=== PATIENT | female | born 1940 | race Caucasian/White ===

== ENCOUNTER 2017-02-06 12:32 | Emergency (ER) | payer MEDICARE, BC ==
[2017-02-06 12:44] VITALS: BP 163/75
[2017-02-06] MEDS ORDERED: Ondansetron 4 MG/2 ML SDV IVPUSH ONE (12:57)
[2017-02-06] MEDS ORDERED: Sodium Chloride 0.9% 1,000 ML IV ONE (12:57)
--- NOTE | 2017-02-06 13:21 | EDM.PDOC ---
ED HPI GENERAL MEDICAL PROBLEM - General Chief Complaint: General Stated Complaint: nausea/shortness of breath/abdominal discomfort Time Seen by Provider: 02/06/17 13:00 Source of Information: Reports: Patient History Limitations: Reports: No Limitations - History of Present Illness INITIAL COMMENTS - FREE TEXT/NARRATIVE: 76 YO WF presents to ER with complaints of nausea, dizziness and some mild shortness of breath. Pt also complaining of some vague abdominal discomfort. Pt denies any chest pain or diaphoresis. Pt states she feels like her blood pressure is elevated. Pt denies any fever/chills, denies any dysuria. Pt reports regular bowel movements without bleeding. No constipation/diarrhea. Onset: Today Duration: Hour(s): (1) Location: Reports: Abdomen Quality: Reports: Ache Severity: Mild Improves with: Reports: None Worsens with: Reports: None Associated Symptoms: Reports: Nausea/Vomiting, Shortness of Breath. Denies: Confusion, Chest Pain, Cough, cough w sputum, Fever/Chills, Headaches, Loss of Appetite, Malaise, Syncope, Weakness - Related Data Allergies Allergy/AdvReac Type Severity Reaction Status Date / Time No Known Drug Allergies Allergy NKDA Verified 02/06/17 12:43 Home Meds: Home Meds Cephalexin [Keflex] 500 mg PO Q6HR #28 cap 02/06/17 [Rx] Lisinopril [Prinivil] 20 mg PO DAILY 02/06/17 [History] Ondansetron [Zofran ODT] 4 mg PO Q8H #6 tab.dis 02/06/17 [Rx] Past Medical History Cardiovascular History: Reports: Hypertension Respiratory History: Reports: None Gastrointestinal History: Reports: GERD, Pancreatitis Genitourinary History: Reports: None 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 (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) 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 Musculoskeletal History: Reports: None Neurological History: Reports: None Psychiatric History: Reports: None Endocrine/Metabolic History: Reports: None Hematologic History: Reports: None Immunologic History: Reports: None Oncologic (Cancer) History: Reports: None Dermatologic History: Reports: None - Infectious Disease History Infectious Disease History: Reports: Mumps - Past Surgical History Head Surgeries/Procedures: Reports: None HEENT Surgical History: Reports: Cataract Surgery Cardiovascular Surgical History: Reports: None GI Surgical History: Reports: Appendectomy, Cholecystectomy, Colonoscopy, EGD, ERCP Female Surgical History: Reports: Hysterectomy, Salpingo-Oophorectomy Endocrine Surgical History: Reports: None Neurological Surgical History: Reports: None Social & Family History - Family History Family Medical History: Noncontributory - Tobacco Use Smoking Status *Q: Never Smoker Years of Tobacco use: 10 Packs/Tins Daily: 0.5 Used Tobacco, but Quit: No Second Hand Smoke Exposure: No - Caffeine Use Caffeine Use: Reports: Coffee - Alcohol Use Days Per Week of Alcohol Use: 7 Number of Drinks Per Day: 1 Total Drinks Per Week: 7 - Recreational Drug Use Recreational Drug Use: No ED ROS GENERAL - Review of Systems Review Of Systems: See Below Constitutional: Reports: No Symptoms HEENT: Reports: No Symptoms Respiratory: Reports: No Symptoms Cardiovascular: Reports: No Symptoms Endocrine: Reports: No Symptoms GI/Abdominal: Reports: Abdominal Pain, Nausea : Reports: No Symptoms Musculoskeletal: Reports: No Symptoms Skin: Reports: No Symptoms Neurological: Reports: No Symptoms Psychiatric: Reports: Anxiety Hematologic/Lymphatic: Reports: No Symptoms Immunologic: Reports: No Symptoms ED EXAM, GENERAL - Physical Exam Exam: See Below Exam Limited By: No Limitations General Appearance: Alert, WD/WN, No Apparent Distress Head: Atraumatic, Normocephalic Neck: Normal Inspection, Supple, Non-Tender, Full Range of Motion Respiratory/Chest: No Respiratory Distress, Lungs Clear, Normal Breath Sounds, No Accessory Muscle Use, Chest Non-Tender Cardiovascular: Normal Peripheral Pulses, Regular Rate, Rhythm, No Edema, No Gallop, No JVD, No Murmur, No Rub GI/Abdominal: Normal Bowel Sounds, Soft, Non-Tender, No Organomegaly, No Distention, No Abnormal Bruit, No Mass Back Exam: Normal Inspection, Full Range of Motion, NT Extremities: Normal Inspection, Normal Range of Motion, Non-Tender, Normal Capillary Refill, No Pedal Edema Neurological: Alert, Oriented, CN II-XII Intact, Normal Cognition, Normal Gait, Normal Reflexes, No Motor/Sensory Deficits Psychiatric: Normal Affect, Normal Mood Skin Exam: Warm, Dry, Intact, Normal Color, No Rash Lymphatic: No Adenopathy EKG INTERPRETATION EKG Date: 02/06/17 Time: 13:30 Rhythm: NSR Rate (Beats/Min): 85 [place]: Normal P-Wave: Present QRS: Normal ST-T: Normal QT: Normal Comparison: NA - No Prior EKG Course - Vital Signs Last Recorded V/S: Last Vital Signs Temp 35.2 C L 02/06/17 12:40 Pulse Resp 16 02/06/17 12:40 BP 163/75 H 02/06/17 12:40 Pulse Ox 98 02/06/17 12:40 - Orders/Labs/Meds Orders: Active Orders 24 hr Category Date Time Status EKG Documentation Completion [RC] ASDIRECTED Care 02/06/17 13:20 Active Chest 1V Frontal [CR] Stat Exams 02/06/17 13:20 Ordered CULTURE URINE [RM] Stat Lab 02/06/17 14:16 Uncollected Cephalexin [Keflex] Med 02/06/17 14:30 Active 250 mg PO Q6HR Ondansetron [Zofran ODT] Med 02/06/17 14:16 Active 4 mg PO Q8H PRN Medication Orders Cephalexin (Keflex) 250 mg PO Q6HR GRACY Stop: 02/12/17 05:01 Ondansetron HCl (Zofran Odt) 4 mg PO Q8H PRN PRN Reason: Nausea/Vomiting Labs: Laboratory Tests 02/06/17 02/06/17 02/06/17 Range/Units 13:10 13:10 13:10 WBC 11.4 H (5.0-10.0) 10^3/uL RBC 4.83 (3.80-5.50) 10^6/uL Hgb 14.5 (12.0-16.0) g/dL Hct 43.5 (37.0-47.0) % MCV 90.1 (82.0-92.0) fL MCH 30.1 (27.0-31.0) pg MCHC 33.4 (32.0-36.0) g/dL RDW 13.0 (11.5-14.5) % Plt Count 244 (150-300) 10^3/uL MPV 8.1 (7.4-10.4) fL Neut % (Auto) 75.9 H (50.0-70.0) % Lymph % (Auto) 20.1 (20.0-40.0) % [place] % (Auto) 3.4 (2.0-8.0) % Eos % (Auto) 0.4 L (1.0-3.0) % Baso % (Auto) 0.2 (0.0-1.0) % Neut # (Auto) 8.7 H (2.5-7.0) 10^3/uL Lymph # (Auto) 2.3 (1.0-4.0) 10^3/uL [place] # (Auto) 0.4 (0.1-0.8) 10^3/uL Eos # (Auto) 0.0 L (0.1-0.3) 10^3/uL Baso # (Auto) 0.0 (0.0-0.1) 10^3/uL Sodium 135 L (136-145) mmol/L Potassium 4.7 (3.3-5.3) mmol/L Chloride 102 (98-115) mmol/L Carbon Dioxide 22.6 (21.0-32.0) mmol/L BUN 19 (6-25) mg/dL Creatinine 0.81 (0.51-1.17) mg/dL Est Cr Clr Drug Dosing 49.43 mL/min Estimated GFR (MDRD) > 60 mL/min Glucose 91 (70-110) mg/dL Calcium 9.4 (8.7-10.3) mg/dL Total Bilirubin 0.3 (0.2-1.0) mg/dL AST 26 (15-37) U/L ALT 21 (12-78) U/L Alkaline Phosphatase 75 (46-116) IU/L Creatine Kinase 105 (26-276) U/L CK-MB (CK-2) 1.10 (0.00-4.30) ng/mL Troponin I 0.05 (0.00-0.070) ng/mL Total Protein 7.4 (6.4-8.2) g/dL Albumin 4.05 (3.00-4.80) g/dL Lipase 157 (73-393) U/L Specimen Type Urine Color (YELLOW) Urine Appearance (CLEAR) Urine pH (5.0-9.0) Ur Specific [place] (1.005-1.030) Urine Protein (NEGATIVE) mg/dL Urine Glucose (UA) (NEGATIVE) mg/dL Urine Ketones (NEGATIVE) mg/dL Urine Occult Blood (NEGATIVE) Urine Nitrite (NEGATIVE) Urine Bilirubin (NEGATIVE) Urine Urobilinogen (0.2-1.0) E.U./dL Ur Leukocyte Esterase (NEGATIVE) Urine RBC /HPF Urine WBC /HPF Ur Epithelial Cells /LPF Urine Bacteria (NONE TO FEW) /HPF Urine Mucus (NEGATIVE) /LPF 02/06/17 Range/Units 13:35 WBC (5.0-10.0) 10^3/uL RBC (3.80-5.50) 10^6/uL Hgb (12.0-16.0) g/dL Hct (37.0-47.0) % MCV (82.0-92.0) fL MCH (27.0-31.0) pg MCHC (32.0-36.0) g/dL RDW (11.5-14.5) % Plt Count (150-300) 10^3/uL MPV (7.4-10.4) fL Neut % (Auto) (50.0-70.0) % Lymph % (Auto) (20.0-40.0) % [place] % (Auto) (2.0-8.0) % Eos % (Auto) (1.0-3.0) % Baso % (Auto) (0.0-1.0) % Neut # (Auto) (2.5-7.0) 10^3/uL Lymph # (Auto) (1.0-4.0) 10^3/uL [place] # (Auto) (0.1-0.8) 10^3/uL Eos # (Auto) (0.1-0.3) 10^3/uL Baso # (Auto) (0.0-0.1) 10^3/uL Sodium (136-145) mmol/L Potassium (3.3-5.3) mmol/L Chloride (98-115) mmol/L Carbon Dioxide (21.0-32.0) mmol/L BUN (6-25) mg/dL Creatinine (0.51-1.17) mg/dL Est Cr Clr Drug Dosing mL/min Estimated GFR (MDRD) mL/min Glucose (70-110) mg/dL Calcium (8.7-10.3) mg/dL Total Bilirubin (0.2-1.0) mg/dL AST (15-37) U/L ALT (12-78) U/L Alkaline Phosphatase (46-116) IU/L Creatine Kinase (26-276) U/L CK-MB (CK-2) (0.00-4.30) ng/mL Troponin I (0.00-0.070) ng/mL Total Protein (6.4-8.2) g/dL Albumin (3.00-4.80) g/dL Lipase (73-393) U/L Specimen Type Urincc Urine Color Yellow (YELLOW) Urine Appearance Clear (CLEAR) Urine pH 7.0 (5.0-9.0) Ur Specific [place] 1.010 (1.005-1.030) Urine Protein Negative (NEGATIVE) mg/dL Urine Glucose (UA) Negative (NEGATIVE) mg/dL Urine Ketones Trace H (NEGATIVE) mg/dL Urine Occult Blood Trace-intact H (NEGATIVE) Urine Nitrite Negative (NEGATIVE) Urine Bilirubin Negative (NEGATIVE) Urine Urobilinogen 0.2 (0.2-1.0) E.U./dL Ur Leukocyte Esterase Trace H (NEGATIVE) Urine RBC 0-5 /HPF Urine WBC 20-30 H /HPF Ur Epithelial Cells Moderate H /LPF Urine Bacteria Occasional (NONE TO FEW) /HPF Urine Mucus Moderate H (NEGATIVE) /LPF Meds: Medications Generic Name Dose Route Start Last Admin Trade Name Freq PRN Reason Stop Dose Admin Cephalexin 250 mg 02/06/17 14:30 Keflex PO 02/12/17 05:01 Q6HR GRACY Ondansetron HCl 4 mg 02/06/17 14:16 Zofran Odt PO Q8H PRN Nausea/Vomiting Discontinued Medications Generic Name Dose Route Start Last Admin Trade Name Freq PRN Reason Stop Dose Admin Sodium Chloride 1,000 mls @ 999 mls/hr 02/06/17 12:57 02/06/17 13:14 Normal Saline IV 02/06/17 13:57 999 mls/hr .BOLUS ONE Administration Ketorolac Tromethamine 30 mg 02/06/17 13:57 02/06/17 14:03 Toradol IVPUSH 02/06/17 13:58 30 mg ONETIME ONE Administration Ondansetron HCl 4 mg 02/06/17 12:57 02/06/17 13:14 Zofran IVPUSH 02/06/17 12:58 4 mg ONETIME ONE Administration - Radiology Interpretation Free Text/Narrative:: CXR- NAD Departure - Departure Time of Disposition: 14:12 Disposition: Home, Self-Care 01 Condition: Good Clinical Impression: Nausea Urinary tract infection Qualifiers: Urinary tract infection type: acute cystitis Hematuria presence: without hematuria Qualified Code(s): N30.00 - Acute cystitis without hematuria - Discharge Information Prescriptions: Cephalexin [Keflex] 500 mg PO Q6HR #28 cap Ondansetron [Zofran ODT] 4 mg PO Q8H #6 tab.dis Instructions: Nausea, Adult, Urinary Tract Infection, Adult Referrals: Tierra Casanova PA-C [Primary Care Provider] - Forms: ED Department Discharge - My Orders Last 24 Hours: My Active Orders 02/06/17 13:20 EKG Documentation Completion [RC] ASDIRECTED Chest 1V Frontal [CR] Stat 02/06/17 14:16 CULTURE URINE [RM] Stat Ondansetron [Zofran ODT] 4 mg PO Q8H PRN 02/06/17 14:30 Cephalexin [Keflex] 250 mg PO Q6HR - Assessment/Plan Last 24 Hours: My Active Orders 02/06/17 13:20 EKG Documentation Completion [RC] ASDIRECTED Chest 1V Frontal [CR] Stat 02/06/17 14:16 CULTURE URINE [RM] Stat Ondansetron [Zofran ODT] 4 mg PO Q8H PRN 02/06/17 14:30 Cephalexin [Keflex] 250 mg PO Q6HR Assessment:: 1. nausea 2. urinary tract infection Plan: 1. keflex 500mg PO Q6 2. Zofran 4mg SL Q8 PRN nausea 3. follow up in clinic for urinary culture check in 3 days 4. return to ER for worsening symptoms
[2017-02-06 13:45] LABS: CHLORIDE,CL 102 mmol/L (98-115); SODIUM,NA 135 mmol/L (136-145)
[2017-02-06] MEDS ORDERED: Ketorolac 30 MG/ML SDV IVPUSH ONE (13:57)
[2017-02-06] MEDS ORDERED: Ondansetron 4 MG Tab.DIS PO PRN (14:16)
[2017-02-06] MEDS ORDERED: Cephalexin 250 MG Cap PO SCH (14:30)
== END 2017-02-06 14:35 | disposition home or self-care (01) ==
LOC: KA.ED 12:32
DX: N30.00 Acute cystitis without hematuria (principal); R11.0 Nausea; I10 Essential (primary) hypertension; K21.9 Gastro-esophageal reflux disease without esophagitis; Z90.49 Acquired absence of other specified parts of digestive tract; Z79.899 Other long term (current) drug therapy; Z90.710 Acquired absence of both cervix and uterus
CPT/HCPCS: 36415; 71010; 80053; 81001; 82550; 82553; 83690; 84484; 85025; 87086; 93005; 96361; 96374; 96375; 99283; J1885; J2405; J7030; A9270-GY

== ENCOUNTER 2017-02-10 13:25 | Observation (INO) | payer MEDICARE, BC ==
[2017-02-10] MEDS ORDERED: HYDROmorphone 1 MG/ML Syringe IVPUSH PRN (13:55)
[2017-02-10] MEDS ORDERED: Ondansetron 4 MG Tab.DIS PO PRN (13:55)
[2017-02-10] MEDS ORDERED: Sodium Chloride 0.9% 5 ML Syringe FLUSH PRN (13:55)
[2017-02-10] MEDS ORDERED: Ciprofloxacin 500 MG Tab PO SCH (14:15)
[2017-02-10] MEDS ORDERED: Ondansetron 4 MG Tab.DIS PO SCH (14:15)
[2017-02-10] MEDS: Dextrose 5%-0.45% NaCl 1,000 ML IV SCH ×2 (14:20→22:24)
[2017-02-10 14:35] LABS: CHLORIDE,CL 104 mmol/L (98-115); SODIUM,NA 139 mmol/L (136-145)
[2017-02-10] MEDS: Ciprofloxacin 500 MG Tab PO SCH (19:57)
[2017-02-11] MEDS: Dextrose 5%-0.45% NaCl 1,000 ML IV SCH (06:27)
[2017-02-11] MEDS ORDERED: Iopamidol 612 MG/ML 75 ML Bottle IV PRN (08:22)
[2017-02-11] MEDS ORDERED: Lisinopril 20 MG Tab PO SCH (09:00)
[2017-02-11] MEDS ORDERED: Sodium Chloride 0.9% 50 ML SDV FLUSH ONE (09:30)
[2017-02-11] MEDS: Ciprofloxacin 500 MG Tab PO SCH (09:42)
[2017-02-11 11:14] VITALS: BP 163/72
--- NOTE | 2017-02-12 10:09 | DISCH ---
This is a 76-year-old female who was admitted yesterday from the [facility]. She was complaining of severe right upper quadrant pain. She was previously seen in the emergency room on 02/06/2017. At that time, she was complaining of nausea, dizziness, and some shortness of breath. She was also complaining of some vague abdominal discomfort as well. A thorough laboratory workup including cardiac enzymes were performed. Lipase was negative. White count was just mildly elevated at 11.4 with a slight left shift. The only positive finding in the emergency room was a urinary tract infection, which was initially treated with Keflex. She had oral intolerance to the Keflex and was changed to Cipro at the time of her followup appointment on 02/09/2017. The patient called me yesterday and stated that she was having severe right upper quadrant pain following eating a sandwich. She does have a history of choledocholithiasis following cholecystectomy approximately three years ago. She has had three procedures for common bile duct stenting. The first two were performed in [place] and the stents "fell out." She went to the [facility] and had a 3rd stent placed which was kept in place for six months. This was subsequently removed. She has not had any symptoms for the past two years. She does have a history of biliary dyskinesia and previous pancreatitis. She only occasionally has the right upper quadrant pain, which she describes as mild. Today, she states the pain is 10/10. She is also complaining of being dizzy and lightheaded. She has an overall feeling of numbness and severe weakness and also feeling as though she is going to pass out. She was admitted to the hospital and treated with intravenous fluids and clear liquid diet. Lab results from yesterday showed a resolved white blood cell count of 6.8. Her hemoglobin was normal at 13.3. Comprehensive metabolic panel was normal with the exception of an elevated glucose of 127, which is a non-fasting sample and a slightly low calcium of 8.4 with a normal range being 8.7 to 10.3, clinically insignificant. She did have a CAT scan of the abdomen performed today. Overall, it was fairly normal. She has a prior cholecystectomy. There is persistent air in the biliary tree. The spleen, pancreas, and adrenals were normal. She does have bilateral non-obstructive renal calculi and a left upper pole renal cyst measuring 8 mm. The bladder, aorta, and IVC were normal. Pelvic organs are absent. A comment was made in regard to the GI tract. There is thickening of the distal stomach patino. No evidence of discrete mass. The appendix was not identified. Mesentery and omentum vasculature lymphatics were normal. No ascites were seen. Final impression was thickening of the distal stomach patino, which may be related to lack of distention, inflammation, or infection. Two bilateral non-obstructive renal calculi. Results of the CAT scan were communicated to the patient. She tolerated a full regular diet without any recurrence of her abdominal pain. She will be discharged with instructions to continue Cipro for a urinary tract infection. She will also continue lisinopril, which she takes for hypertension. I did give her 20 tablets of oxycodone to have on hand for severe abdominal pain. Hopefully, the biliary dyskinesia is not a recurrent problem for this patient. She will follow up in the clinic next week with me. A urinalysis will be repeated at that time. She was instructed to call or return to the clinic or hospital if any issues arise. FINAL DIAGNOSES: 1. Abdominal pain with no pathology identified. 2. Urinary tract infection, treated and improved symptomatically. 3. Hypertension, stable with lisinopril. 4. Biliary dyskinesia and past history of bile duct stenting. 5. Social component of recent of her which was exactly four months yesterday. /[id number]/MODL
== END 2017-02-11 13:02 | disposition home or self-care (01) ==
LOC: KA.MS 13:25
DX: R10.11 Right upper quadrant pain (principal); N39.0 Urinary tract infection, site not specified; I10 Essential (primary) hypertension; K82.8 Other specified diseases of gallbladder; Z90.49 Acquired absence of other specified parts of digestive tract; Z79.899 Other long term (current) drug therapy
CPT/HCPCS: 36415; 74177; 80053; 82150; 83690; 85025; A9270; J1170; J7042; Q9967; 96361; 96374; G0378; G0379

== ENCOUNTER 2017-03-08 08:00 | Day surgery (SDC) | payer MEDICARE, BC ==
[~2017-03-08 08:00] MED LIST: Lactated Ringers 1,000 ML IV SCH; Sodium Chloride 0.9% 5 ML Syringe FLUSH PRN
[2017-03-08] MEDS ORDERED: Midazolam 1 MG/ML 2 ML SDV ONE (08:58)
[2017-03-08] MEDS ORDERED: fentaNYL 100 MCG/2 ML SDV ONE (08:58)
[2017-03-08] MEDS ORDERED: Propofol 200 MG/20 ML SDV ONE (08:58)
[2017-03-08] MEDS ORDERED: EPINEPHrine 1:10,000 1 MG/10 ML Syringe ONE ×2 (09:27→09:50)
[2017-03-08] MEDS ORDERED: Midazolam 1 MG/ML 2 ML SDV IV ONE (09:39)
[2017-03-08] MEDS ORDERED: fentaNYL 100 MCG/2 ML SDV IV ONE (09:39)
[2017-03-08] MEDS ORDERED: Propofol 200 MG/20 ML SDV IV ONE (09:39)
--- NOTE | 2017-03-08 10:11 | PCM.OPNOTE ---
- General Post-Op/Procedure Note Date of Surgery/Procedure: 03/08/17 Operative Procedure(s): Upper GI endoscopy and biopsies Pre Op Diagnosis: Persistent upper abdominal pain and discomfort. Recent Helicobacter pylori infection. Patient is losing weight. Has a history of biliary dyskinesia. Post-Op Diagnosis: Mild antral gastritis and mild reflux esophagitis. Biopsies are pending. Anesthesia Technique: [facility] [place] Primary Surgeon: Ruben Rodrigues Complications: None Condition: Good Free Text/Narrative:: INFORMED CONSENT: Patient is here today for elective upper GI endoscopy. All aspects of this procedure have been discussed with the patient. All possible complications also, including possibility of perforation, infection, pain, bleeding, numbness of the throat, swallowing difficulty and unknown complications. In the event of perforation the patient may need surgical exploration to repair the defect. The patient understands fully well. Patient did not have any further questions for me at the end of my interview. The patient wishes for me to proceed. INSTRUMENT USED: Video gastroscope ANESTHESIA: [[facility] [place]] ASA CLASSIFICATION: [2] PROCEDURE PERFORMED: [Upper gastrointestinal endoscopy with biopsies] PHARYNX: Normal. ESOPHAGUS: Normal. Proximal: Normal. Middle: Normal. Lower: Normal. GE Junction: Mild to moderate GE reflux was noted. Biopsies were taken from this area to rule out Benitez's esophagitis. STOMACH: Normal. Cardia: Normal. Fundus: Normal. Lesser Curvature: Normal. Greater Curvature: Normal. Antrum: Mild to moderate gastritis is observed. Biopsies were taken in this area. Also to rule out Helicobacter pylori infection.. Pylorus: Normal. DUODENUM: Normal. First Part: Normal. Second Part: Normal. Third Part: Normal. RETROFLEXION: Normal. BIOPSY: None. TOLERANCE: Excellent. COMPLICATIONS: None. Final diagnosis: Mild GERD, mild to moderate antral gastritis. Rule out Helicobacter pylori infection.
[2017-03-08 12:27] VITALS: BP 110/63
== END 2017-03-08 11:15 | disposition home or self-care (01) ==
LOC: KA.SDS 08:00
PROVIDERS: ATTEND Family Medicine
DX: K29.50 Unspecified chronic gastritis without bleeding (principal); K21.0 Gastro-esophageal reflux disease with esophagitis; Z79.2 Long term (current) use of antibiotics; Z79.899 Other long term (current) drug therapy
CPT/HCPCS: 43239; 88305; J0171; J2250; J3010; J7120; J2704

== ENCOUNTER 2017-04-03 16:18 | Emergency (ER) | payer MEDICARE, BC ==
[2017-04-03 16:37] VITALS: BP 128/78
--- NOTE | 2017-04-03 17:15 | EDM.PDOC ---
ED HPI GENERAL MEDICAL PROBLEM - General Chief Complaint: General Stated Complaint: ACHY...JUST PLAIN SICK Time Seen by Provider: 04/03/17 17:05 Source of Information: Reports: Patient History Limitations: Reports: No Limitations - History of Present Illness INITIAL COMMENTS - FREE TEXT/NARRATIVE: Patient presents with body aches, cough and feeling feverish starting yesterday. She hasn't checked her temp at home. She just returned from vacation in [place]. She denies chest pain, vomiting and diarrhea. She has been urinating more than usual. 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 (See Below) 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 Musculoskeletal History: Reports: None Neurological History: Reports: None Psychiatric History: Reports: None Endocrine/Metabolic History: Reports: None Hematologic History: Reports: None Immunologic History: Reports: None Oncologic (Cancer) History: Reports: None Dermatologic History: Reports: None - Infectious Disease History Infectious Disease History: Reports: Chicken Pox, Measles, Mumps, Rubella - Past Surgical History Head Surgeries/Procedures: Reports: None HEENT Surgical History: Reports: Cataract Surgery Cardiovascular Surgical History: Reports: None GI Surgical History: Reports: Appendectomy, Cholecystectomy, Colonoscopy, EGD, ERCP Female Surgical History: Reports: Hysterectomy, Salpingo-Oophorectomy Endocrine Surgical History: Reports: Parathyroidectomy Neurological Surgical History: Reports: None Social & Family History - Family History Family Medical History: Noncontributory - Tobacco Use Smoking Status *Q: Former Smoker Years of Tobacco use: 10 Packs/Tins Daily: 0.5 Used Tobacco, but Quit: Yes Month Tobacco Last Used: 1994 Second Hand Smoke Exposure: No - Caffeine Use Caffeine Use: Reports: Coffee, Tea - Alcohol Use Days Per Week of Alcohol Use: 7 Number of Drinks Per Day: 1 Total Drinks Per Week: 7 - Recreational Drug Use Recreational Drug Use: No ED ROS GENERAL - Review of Systems Review Of Systems: See Below Constitutional: Reports: Fever. Denies: Diaphoresis HEENT: Denies: Throat Pain, Vision Change Respiratory: Reports: Cough. Denies: Shortness of Breath, Sputum Cardiovascular: Denies: Chest Pain, Lightheadedness, Syncope GI/Abdominal: Reports: Abdominal Pain. Denies: Black Stool, Bloody Stool, Diarrhea, Distension, Nausea, Vomiting : Reports: Frequency. Denies: Discharge, Dysuria, Flank Pain Musculoskeletal: Reports: No Symptoms Skin: Denies: Cyanosis, Jaundice, Mottled, Pallor, Diaphoresis Neurological: Denies: Confusion, Dizziness, Headache, Seizure, Syncope, Trouble Speaking, Difficulty Walking Psychiatric: Denies: Agitation, Anxiety, Confusion ED EXAM, GENERAL - Physical Exam Exam: See Below Exam Limited By: No Limitations General Appearance: Alert, WD/WN, No Apparent Distress Eye Exam: Bilateral Eye: EOMI, Normal Inspection, PERRL Ears: Normal External Exam, Hearing Grossly Normal Nose: Normal Inspection, No Blood Throat/Mouth: Normal Inspection, Normal Lips, Normal Voice, No Airway Compromise Head: Atraumatic, Normocephalic Neck: Normal Inspection, Full Range of Motion Respiratory/Chest: No Respiratory Distress, Lungs Clear, Normal Breath Sounds, No Accessory Muscle Use Cardiovascular: Regular Rate, Rhythm, No Murmur GI/Abdominal: Normal Bowel Sounds, Soft, Non-Tender, No Organomegaly, No Distention, No Abnormal Bruit Back Exam: Normal Inspection, Full Range of Motion. No: CVA Tenderness (L), CVA Tenderness (R) Neurological: Alert, Oriented, Normal Cognition, No Motor/Sensory Deficits Psychiatric: Normal Affect, Normal Mood, Anxious Skin Exam: Warm, Dry, Intact, Normal Color, No Rash Course - Vital Signs Last Recorded V/S: Last Vital Signs Temp 100.8 F H 04/03/17 16:32 Pulse 98 04/03/17 16:32 Resp 18 04/03/17 16:32 BP 128/78 04/03/17 16:32 Pulse Ox 98 04/03/17 16:32 - Orders/Labs/Meds Orders: Active Orders 24 hr Category Date Time Status Chest 2V [CR] Stat Exams 04/03/17 16:43 Ordered Labs: Laboratory Tests 04/03/17 04/03/17 04/03/17 Range/Units 16:43 16:55 16:55 WBC 5.8 (5.0-10.0) 10^3/uL RBC 4.89 (3.80-5.50) 10^6/uL Hgb 14.4 (12.0-16.0) g/dL Hct 44.3 (37.0-47.0) % MCV 90.7 (82.0-92.0) fL MCH 29.5 (27.0-31.0) pg MCHC 32.5 (32.0-36.0) g/dL RDW 13.1 (11.5-14.5) % Plt Count 228 (150-300) 10^3/uL MPV 7.8 (7.4-10.4) fL Neut % (Auto) 75.7 H (50.0-70.0) % Lymph % (Auto) 16.6 L (20.0-40.0) % [place] % (Auto) 7.0 (2.0-8.0) % Eos % (Auto) 0.2 L (1.0-3.0) % Baso % (Auto) 0.5 (0.0-1.0) % Neut # (Auto) 4.4 (2.5-7.0) 10^3/uL Lymph # (Auto) 1.0 (1.0-4.0) 10^3/uL [place] # (Auto) 0.4 (0.1-0.8) 10^3/uL Eos # (Auto) 0.0 L (0.1-0.3) 10^3/uL Baso # (Auto) 0.0 (0.0-0.1) 10^3/uL Sodium 139 (136-145) mmol/L Potassium 4.1 (3.3-5.3) mmol/L Chloride 102 (98-115) mmol/L Carbon Dioxide 25.8 (21.0-32.0) mmol/L BUN 12 (6-25) mg/dL Creatinine 0.95 (0.51-1.17) mg/dL Est Cr Clr Drug Dosing 42.14 mL/min Estimated GFR (MDRD) 57 mL/min Glucose 98 (70-110) mg/dL Calcium 8.9 (8.7-10.3) mg/dL Specimen Type Urincc Urine Color Yellow (YELLOW) Urine Appearance Clear (CLEAR) Urine pH 7.0 (5.0-9.0) Ur Specific [place] 1.015 (1.005-1.030) Urine Protein Negative (NEGATIVE) mg/dL Urine Glucose (UA) Negative (NEGATIVE) mg/dL Urine Ketones 40 H (NEGATIVE) mg/dL Urine Occult Blood Trace-intact H (NEGATIVE) Urine Nitrite Negative (NEGATIVE) Urine Bilirubin Negative (NEGATIVE) Urine Urobilinogen 0.2 (0.2-1.0) E.U./dL Ur Leukocyte Esterase Negative (NEGATIVE) Urine RBC 5-10 H /HPF Urine WBC 5-10 H /HPF Ur Epithelial Cells Few /LPF Urine Bacteria Rare (NONE TO FEW) /HPF Urine Mucus Moderate H (NEGATIVE) /LPF - Re-Assessments/Exams Free Text/Narrative Re-Assessment/Exam: 04/03/17 17:47 Influenza A positive. Other labs mostly normal. Discussed findings and treatment plan with patient and her son. Rachel will meet her at pharmacy in a few minutes to fill her prescription for Tamiflu 75 mg bid x 5 days. Patient discharged in stable condition. I gave her and her son a couple of face masks and instructed pt not to go to work until symptoms are gone for 24 hours. Departure - Departure Time of Disposition: 17:49 Disposition: Home, Self-Care 01 Condition: Good Clinical Impression: Influenza A - Discharge Information Referrals: Tierra Casanova PA-C [Primary Care Provider] - Forms: ED Department Discharge Additional Instructions: 1. Drink 8 cups of water daily. 2. Take the Tamiflu as directed until the medication is all gone. 3. Use tylenol or ibuprofen as needed for fever. 4. Follow up with your PCP in a 5-6 days if not improving or sooner if worsening. - My Orders Last 24 Hours: My Active Orders 04/03/17 16:43 Chest 2V [CR] Stat - Assessment/Plan Last 24 Hours: My Active Orders 04/03/17 16:43 Chest 2V [CR] Stat
== END 2017-04-03 17:55 | disposition home or self-care (01) ==
LOC: KA.ED 16:18
DX: J10.1 Influenza due to other identified influenza virus with other respiratory manifestations (principal); I10 Essential (primary) hypertension; Z79.899 Other long term (current) drug therapy; Z87.891 Personal history of nicotine dependence
CPT/HCPCS: 36415; 71046; 80048; 81001; 85025; 87804; 99283

== ENCOUNTER 2017-07-30 10:20 | Emergency (ER) | payer MEDICARE, BC ==
[2017-07-30] MEDS ORDERED: Sodium Chloride 0.9% 1,000 ML IV ONE (10:48)
--- NOTE | 2017-07-30 11:00 | EDM.PDOC ---
ED HPI GENERAL MEDICAL PROBLEM - General Chief Complaint: Syncope Stated Complaint: Dizzy Time Seen by Provider: 07/30/17 10:35 Source of Information: Reports: Patient History Limitations: Reports: No Limitations - History of Present Illness INITIAL COMMENTS - FREE TEXT/NARRATIVE: 77 YO WF presents to ER complaining of dizziness and near syncope after episode of lower abdominal pain today. Pt reports she has chronic abdominal pain and is currently being treated for UTI which she doesn't believe the antibiotic is helping. Pt denies headache, chest pain, shortness of breath. 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 Pt reports she started macrobid 07/26/2017 then switched to cipro 07/28/2017 and still continues to have dysuria and frequency. Pt denies fever/chills, vomiting or back pain. Pt reports she feels dizzy when sitting up. Onset: Today Onset Date: 07/30/17 Onset Time: 09:00 Location: Reports: Abdomen, Generalized Quality: Reports: Ache Severity: Mild Improves with: Reports: None Worsens with: Reports: None Associated Symptoms: Reports: Nausea/Vomiting, Weakness. Denies: Confusion, Chest Pain, Cough, cough w sputum, Diaphoresis, Fever/Chills, Headaches, Loss of Appetite, Malaise, Rash, Seizure, Shortness of Breath, Syncope Abdominal Pain Score (Numeric/FACES): 6 - Related Data Allergies Allergy/AdvReac Type Severity Reaction Status Date / Time No Known Drug Allergies Allergy NKDA Verified 04/03/17 16:38 Home Meds: Home Meds Lisinopril [Prinivil] 20 mg PO DAILY 02/06/17 [History] Cephalexin [Keflex] 500 mg PO Q6HR #40 capsule 07/30/17 [Rx] Phenazopyridine HCl [Pyridium] 200 mg PO TID #6 tablet 07/30/17 [Rx] Past Medical History HEENT History: Reports: Cataract Cardiovascular History: Reports: Hypertension Respiratory History: Reports: None Gastrointestinal History: Reports: GERD, Pancreatitis Genitourinary History: Reports: None 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: , 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 (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) 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 Musculoskeletal History: Reports: None Neurological History: Reports: None Psychiatric History: Reports: None Endocrine/Metabolic History: Reports: None Hematologic History: Reports: None Immunologic History: Reports: None Oncologic (Cancer) History: Reports: None Dermatologic History: Reports: None - Infectious Disease History Infectious Disease History: Reports: Chicken Pox, Measles, Mumps, Rubella - Past Surgical History Head Surgeries/Procedures: Reports: None HEENT Surgical History: Reports: Cataract Surgery Cardiovascular Surgical History: Reports: None GI Surgical History: Reports: Appendectomy, Cholecystectomy, Colonoscopy, EGD, ERCP Female Surgical History: Reports: Hysterectomy, Salpingo-Oophorectomy Endocrine Surgical History: Reports: Parathyroidectomy Neurological Surgical History: Reports: None Social & Family History - Family History Family Medical History: Noncontributory - Caffeine Use Caffeine Use: Reports: Coffee, Tea ED ROS GENERAL - Review of Systems Review Of Systems: See Below Constitutional: Reports: No Symptoms HEENT: Reports: No Symptoms Respiratory: Reports: No Symptoms Cardiovascular: Reports: No Symptoms Endocrine: Reports: No Symptoms GI/Abdominal: Reports: Abdominal Pain, Distension, Nausea : Reports: Dysuria, Frequency Musculoskeletal: Reports: No Symptoms Skin: Reports: No Symptoms Neurological: Reports: Dizziness Psychiatric: Reports: No Symptoms Hematologic/Lymphatic: Reports: No Symptoms Immunologic: Reports: No Symptoms ED EXAM, DIZZINESS - Physical Exam Exam: See Below Exam Limited By: No Limitations General Appearance: Alert, WD/WN, No Apparent Distress Eye Exam: Bilateral Eye: EOMI, PERRL Ears: Normal External Exam, Normal Canal, Hearing Grossly Normal, Normal TMs Throat/Mouth: Normal Inspection, Normal Lips, Normal Teeth, Normal Gums, Normal Oropharynx, Normal Voice, No Airway Compromise Head Exam: Atraumatic, Normocephalic Neck: Normal Inspection, Supple, Non-Tender, Full Range of Motion Respiratory/Chest: No Respiratory Distress, Lungs Clear, Normal Breath Sounds, No Accessory Muscle Use, Chest Non-Tender Cardiovascular: Normal Peripheral Pulses, Regular Rate, Rhythm, No Edema, No Gallop, No JVD, No Murmur, No Rub GI/Abdominal: Normal Bowel Sounds, Soft, Non-Tender, No Organomegaly, No Distention, No Abnormal Bruit, No Mass Neurological: Alert, Normal Mood/Affect, Normal Dorsiflexion, CN II-XII Intact, Normal Plantar Flexion, Normal Gait, Normal Reflexes, No Motor/Sensory Deficits , Oriented x 3 Back Exam: Normal Inspection, Full Range of Motion, NT Extremities: Normal Inspection, Normal Range of Motion, Non-Tender, No Pedal Edema, Normal Capillary Refill Psychiatric: Normal Affect, Normal Mood Skin Exam: Warm, Dry, Intact, Normal Color, No Rash EKG INTERPRETATION EKG Date: 07/30/17 Time: 10:37 Rhythm: NSR Rate (Beats/Min): 76 [place]: Normal P-Wave: Present QRS: Normal ST-T: Normal QT: Normal Comparison: NA - No Prior EKG Course - Vital Signs Last Recorded V/S: Last Vital Signs Temp 35.3 C 07/30/17 10:45 Pulse 66 07/30/17 12:14 Resp 20 07/30/17 12:14 BP 150/50 H 07/30/17 12:14 Pulse Ox 100 07/30/17 12:14 Orthostatic Blood Pressure [ 127/62 Standing] Orthostatic Blood Pressure [ 132/59 Sitting] Orthostatic Blood Pressure [ 140/49 Supine] - Orders/Labs/Meds Orders: Active Orders 24 hr Category Date Time Status Cardiac Monitoring [RC] . DIRECTED Care 07/30/17 10:48 Active EKG Documentation Completion [RC] ASDIRECTED Care 07/30/17 10:48 Active Orthostatic Vital Signs [RC] ASDIRECTED Care 07/30/17 10:48 Active Peripheral IV Care [RC] . DIRECTED Care 07/30/17 10:48 Active Chest 1V Frontal [CR] Stat Exams 07/30/17 10:48 Taken CULTURE URINE [RM] Stat Lab 07/30/17 11:19 Ordered UA W/MICROSCOPIC [URIN] Stat Lab 07/30/17 10:50 Ordered EKG 12 Lead [EK] Routine Ther 07/30/17 10:48 Ordered Labs: Laboratory Tests 07/30/17 07/30/17 07/30/17 Range/Units 10:50 11:00 11:00 WBC 8.5 (5.0-10.0) 10^3/uL RBC 5.27 (3.80-5.50) 10^6/uL Hgb 15.4 (12.0-16.0) g/dL Hct 46.7 (37.0-47.0) % MCV 88.7 (82.0-92.0) fL MCH 29.3 (27.0-31.0) pg MCHC 33.0 (32.0-36.0) g/dL RDW 13.5 (11.5-14.5) % Plt Count 266 (150-300) 10^3/uL MPV 8.0 (7.4-10.4) fL Neut % (Auto) 67.9 (50.0-70.0) % Lymph % (Auto) 25.4 (20.0-40.0) % [place] % (Auto) 3.9 (2.0-8.0) % Eos % (Auto) 0.4 L (1.0-3.0) % Baso % (Auto) 2.4 H (0.0-1.0) % Neut # (Auto) 5.8 (2.5-7.0) 10^3/uL Lymph # (Auto) 2.2 (1.0-4.0) 10^3/uL [place] # (Auto) 0.3 (0.1-0.8) 10^3/uL Eos # (Auto) 0.0 L (0.1-0.3) 10^3/uL Baso # (Auto) 0.2 H (0.0-0.1) 10^3/uL Sodium 138 (136-145) mmol/L Potassium 4.3 (3.3-5.3) mmol/L Chloride 100 (98-115) mmol/L Carbon Dioxide 24.5 (21.0-32.0) mmol/L BUN 18 (6-25) mg/dL Creatinine 0.87 (0.51-1.17) mg/dL Est Cr Clr Drug Dosing 45.28 mL/min Estimated GFR (MDRD) > 60 mL/min Glucose 95 (70-110) mg/dL Calcium 9.6 (8.7-10.3) mg/dL Total Bilirubin 0.4 (0.2-1.0) mg/dL AST 26 (15-37) U/L ALT 25 (12-78) U/L Alkaline Phosphatase 79 (46-116) IU/L Creatine Kinase 92 (26-276) U/L CK-MB (CK-2) 1.20 (0.00-4.30) ng/mL Troponin I < 0.04 (0.00-0.070) ng/mL Total Protein 7.8 (6.4-8.2) g/dL Albumin 3.88 (3.00-4.80) g/dL Specimen Type Urinvoid Urine Color Yellow (YELLOW) Urine Appearance Slightly cloudy H (CLEAR) Urine pH 6.0 (5.0-9.0) Ur Specific [place] <= 1.005 (1.005-1.030) Urine Protein Negative (NEGATIVE) mg/dL Urine Glucose (UA) Negative (NEGATIVE) mg/dL Urine Ketones Negative (NEGATIVE) mg/dL Urine Occult Blood Negative (NEGATIVE) Urine Nitrite Negative (NEGATIVE) Urine Bilirubin Negative (NEGATIVE) Urine Urobilinogen 0.2 (0.2-1.0) E.U./dL Ur Leukocyte Esterase Negative (NEGATIVE) Urine RBC 0-5 /HPF Urine WBC 0-5 /HPF Ur Epithelial Cells Few /LPF Urine Bacteria Few (NONE TO FEW) /HPF Meds: Medications Discontinued Medications Generic Name Dose Route Start Last Admin Trade Name Freq PRN Reason Stop Dose Admin Sodium Chloride 1,000 mls @ 999 mls/hr 07/30/17 10:48 07/30/17 11:29 Normal Saline IV 07/30/17 11:48 999 mls/hr .BOLUS ONE Administration - Radiology Interpretation Free Text/Narrative:: CXR- NAD - Re-Assessments/Exams Free Text/Narrative Re-Assessment/Exam: 07/30/17 11:24 Pt with symptomatic orthostatic hypotension- given IVF Departure - Departure Time of Disposition: 12:20 Disposition: Home, Self-Care 01 Condition: Good Clinical Impression: Orthostatic dizziness Urinary tract infection Qualifiers: Urinary tract infection type: acute cystitis Hematuria presence: without hematuria Qualified Code(s): N30.00 - Acute cystitis without hematuria - Discharge Information Prescriptions: Cephalexin [Keflex] 500 mg PO Q6HR #40 capsule Phenazopyridine HCl [Pyridium] 200 mg PO TID #6 tablet Instructions: Dehydration, Adult, [place], Urine Culture and Sensitivity Testing, Dizziness, Urinary Tract Infection, Adult Referrals: Ruben Rodrigues MD [Physician] - Forms: ED Department Discharge - My Orders Last 24 Hours: My Active Orders 07/30/17 10:48 Cardiac Monitoring [RC] . DIRECTED EKG Documentation Completion [RC] ASDIRECTED Orthostatic Vital Signs [RC] ASDIRECTED Peripheral IV Care [RC] . DIRECTED Chest 1V Frontal [CR] Stat EKG 12 Lead [EK] Routine 07/30/17 10:50 UA W/MICROSCOPIC [URIN] Stat 07/30/17 11:19 CULTURE URINE [RM] Stat - Assessment/Plan Last 24 Hours: My Active Orders 07/30/17 10:48 Cardiac Monitoring [RC] . DIRECTED EKG Documentation Completion [RC] ASDIRECTED Orthostatic Vital Signs [RC] ASDIRECTED Peripheral IV Care [RC] . DIRECTED Chest 1V Frontal [CR] Stat EKG 12 Lead [EK] Routine 07/30/17 10:50 UA W/MICROSCOPIC [URIN] Stat 07/30/17 11:19 CULTURE URINE [RM] Stat Assessment:: 1. Orthostatic Hypotension 2. Urinary tract infection Plan: 1. Discharge home 2. keflex 500mg PO q6 x 10 days 3. stop Cipro 4. follow up in clinic 08/02/2017 5. Return to ER for worsening symptoms
[2017-07-30 11:58] LABS: CHLORIDE,CL 100 mmol/L (98-115); SODIUM,NA 138 mmol/L (136-145)
[2017-07-30] MEDS ORDERED: Water For Injection, Sterile 20 ML ONE (12:22)
[2017-07-30] MEDS ORDERED: cefTRIAXone 1 GM Vial IVPUSH SCH (12:30)
[2017-07-30 12:47] VITALS: BP 156/56
== END 2017-07-30 12:47 | disposition home or self-care (01) ==
LOC: KA.ED 10:20
DX: I95.1 Orthostatic hypotension (principal); N30.00 Acute cystitis without hematuria; I10 Essential (primary) hypertension; Z79.899 Other long term (current) drug therapy
CPT/HCPCS: 36415; 71045; 80053; 81001; 82550; 82553; 84484; 85025; 87086; 93005; 96361; 96374; 99284; J0696; J7030

== ENCOUNTER 2017-08-08 17:20 | Emergency (ER) | payer MEDICARE, BC ==
[2017-08-08] MEDS ORDERED: GI Cocktail 45 ML BOTTLE PO ONE (18:12)
[2017-08-08 18:16] LABS: CHLORIDE,CL 105 mmol/L (98-115); SODIUM,NA 141 mmol/L (136-145)
--- NOTE | 2017-08-08 18:50 | EDM.PDOC ---
ED HPI GENERAL MEDICAL PROBLEM - General Stated Complaint: PAIN IN STOMACH Time Seen by Provider: 08/08/17 17:35 Source of Information: Reports: Patient, Family History Limitations: Reports: No Limitations - History of Present Illness INITIAL COMMENTS - FREE TEXT/NARRATIVE: 77-year-old female presents to the emergency room with complaints of chronic epigastric pain. She states that she's had these symptoms for greater than 1 month. Her symptoms have not changed in severity or intensity. She rates the pain about a 4 out of 10 she has been seen in the emergency room multiple times most recently about 2 weeks ago for urinary tract infection. She does have some GI studies scheduled for tomorrow morning. She denies any specific chest pain or shortness of breath. She denies any lower quadrant pain. Should she states that her pain is a dull ache. She was responded to a GI cocktail in the past. She denies currently any constipation diarrhea, nausea or vomiting. She denies any blood in her stool she denies black tarry stools. She denies any current dysuria or hematuria. She denies frequency of urination. She's had an upper GI study done about 6 months ago. She's had a history of H. pylori. She's had a prior open cholecystectomy 30 years ago. 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 Again she has not had any significant change in her pain in the last month. Patient does tell me that she had lost her in the last 7 months from a stroke. She started smoking again about 6 years ago and smokes about a half a pack a day. She had quit 20 year prior. She does feel that she is a little bit anxious but denies seeking her needing treatment for any anxiety or depression. 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 - Related Data Allergies Allergy/AdvReac Type Severity Reaction Status Date / Time No Known Drug Allergies Allergy NKDA Verified 04/03/17 16:38 Home Meds: Home Meds Lisinopril [Prinivil] 20 mg PO DAILY 02/06/17 [History] Cephalexin [Keflex] 500 mg PO Q6HR #40 capsule 07/30/17 [Rx] Phenazopyridine HCl [Pyridium] 200 mg PO TID #6 tablet 07/30/17 [Rx] Past Medical History HEENT History: Reports: Cataract Cardiovascular History: Reports: Hypertension Respiratory History: Reports: None Gastrointestinal History: Reports: GERD, Pancreatitis Genitourinary History: Reports: None 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: , 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 (See Below) 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 Musculoskeletal History: Reports: None Neurological History: Reports: None Psychiatric History: Reports: None Endocrine/Metabolic History: Reports: None Hematologic History: Reports: None Immunologic History: Reports: None Oncologic (Cancer) History: Reports: None Dermatologic History: Reports: None - Infectious Disease History Infectious Disease History: Reports: Chicken Pox, Measles, Mumps, Rubella - Past Surgical History Head Surgeries/Procedures: Reports: None HEENT Surgical History: Reports: Cataract Surgery Cardiovascular Surgical History: Reports: None GI Surgical History: Reports: Appendectomy, Cholecystectomy, Colonoscopy, EGD, ERCP Female Surgical History: Reports: Hysterectomy, Salpingo-Oophorectomy Endocrine Surgical History: Reports: Parathyroidectomy Neurological Surgical History: Reports: None Social & Family History - Family History Family Medical History: Noncontributory - Caffeine Use Caffeine Use: Reports: Coffee, Tea ED ROS GENERAL - Review of Systems Review Of Systems: See Below Constitutional: Reports: No Symptoms HEENT: Reports: Glasses Respiratory: Reports: No Symptoms Cardiovascular: Reports: No Symptoms Endocrine: Reports: No Symptoms GI/Abdominal: Reports: Abdominal Pain. Denies: Black Stool, Bloody Stool, Diarrhea, Hematemesis, Melena, Nausea, Stool Incontinence, Vomiting : Denies: Discharge, Dysuria, Flank Pain, Hematuria, Incontinence, Pain, Urgency Musculoskeletal: Reports: No Symptoms Skin: Denies: Jaundice, Bruising, Pruritis Neurological: Reports: No Symptoms Psychiatric: Reports: Anxiety Hematologic/Lymphatic: Denies: Anemia, Easy Bleeding, Easy Bruising Immunologic: Reports: No Symptoms ED EXAM, GI/ABD - Physical Exam Exam: See Below Exam Limited By: No Limitations General Appearance: Alert, WD/WN, No Apparent Distress Eyes: Bilateral: EOMI Ears: Hearing Grossly Normal Nose: Normal Inspection Throat/Mouth: Normal Inspection, Normal Voice, No Airway Compromise Head: Atraumatic Neck: Normal Inspection Respiratory/Chest: No Respiratory Distress, Lungs Clear, Normal Breath Sounds Cardiovascular: Normal Peripheral Pulses, Regular Rate, Rhythm, No Edema, No JVD , No Murmur GI/Abdominal Exam: Normal Bowel Sounds, Soft, Non-Tender, No Organomegaly, No Distention, No Abnormal Bruit, No Mass Back Exam: Normal Inspection, Full Range of Motion Extremities: Normal Inspection, Normal Range of Motion, Non-Tender, No Pedal Edema Neurological: Alert, Oriented, CN II-XII Intact, Normal Cognition, Normal Gait, Normal Reflexes, No Motor/Sensory Deficits Psychiatric: Normal Affect, Depressed Mood Skin Exam: Warm, Dry, Intact, Normal Color, No Rash Lymphatic: No Adenopathy EKG INTERPRETATION EKG Date: 08/08/17 Rhythm: NSR [place]: Normal P-Wave: Present QRS: Normal ST-T: Normal QT: Normal Comparison: No Change (07/28/17) EKG Interpretation Comments: Normal sinus rhythm Normal ECG Course - Vital Signs Last Recorded V/S: Last Vital Signs Temp 98.7 F 08/08/17 18:46 Pulse 96 08/08/17 18:46 Resp 18 08/08/17 18:46 BP 162/85 H 08/08/17 18:46 Pulse Ox 98 08/08/17 18:46 - Orders/Labs/Meds Orders: Active Orders 24 hr Category Date Time Status EKG Documentation Completion [RC] ASDIRECTED Care 08/08/17 18:11 Active EKG 12 Lead [EK] Routine Ther 08/08/17 18:10 Ordered Labs: Laboratory Tests 08/08/17 08/08/17 08/08/17 Range/Units 17:30 17:30 17:30 WBC 7.3 (5.0-10.0) 10^3/uL RBC 5.22 (3.80-5.50) 10^6/uL Hgb 15.2 (12.0-16.0) g/dL Hct 46.6 (37.0-47.0) % MCV 89.3 (82.0-92.0) fL MCH 29.0 (27.0-31.0) pg MCHC 32.5 (32.0-36.0) g/dL RDW 13.6 (11.5-14.5) % Plt Count 249 (150-300) 10^3/uL MPV 7.7 (7.4-10.4) fL Neut % (Auto) 61.7 (50.0-70.0) % Lymph % (Auto) 32.2 (20.0-40.0) % [place] % (Auto) 4.1 (2.0-8.0) % Eos % (Auto) 1.1 (1.0-3.0) % Baso % (Auto) 0.9 (0.0-1.0) % Neut # (Auto) 4.4 (2.5-7.0) 10^3/uL Lymph # (Auto) 2.4 (1.0-4.0) 10^3/uL [place] # (Auto) 0.3 (0.1-0.8) 10^3/uL Eos # (Auto) 0.1 (0.1-0.3) 10^3/uL Baso # (Auto) 0.1 (0.0-0.1) 10^3/uL Sodium 141 (136-145) mmol/L Potassium 4.1 (3.3-5.3) mmol/L Chloride 105 (98-115) mmol/L Carbon Dioxide 25.3 (21.0-32.0) mmol/L BUN 17 (6-25) mg/dL Creatinine 0.84 (0.51-1.17) mg/dL Est Cr Clr Drug Dosing TNP Estimated GFR (MDRD) > 60 mL/min Glucose 111 H (70-110) mg/dL Calcium 9.2 (8.7-10.3) mg/dL Total Bilirubin 0.3 (0.2-1.0) mg/dL AST 20 (15-37) U/L ALT 23 (12-78) U/L Alkaline Phosphatase 71 (46-116) IU/L Troponin I < 0.04 (0.00-0.070) ng/mL Total Protein 7.5 (6.4-8.2) g/dL Albumin 3.80 (3.00-4.80) g/dL Amylase 61 (25-125) U/L Lipase 199 (73-393) U/L Specimen Type Urine Color (YELLOW) Urine Appearance (CLEAR) Urine pH (5.0-9.0) Ur Specific [place] (1.005-1.030) Urine Protein (NEGATIVE) mg/dL Urine Glucose (UA) (NEGATIVE) mg/dL Urine Ketones (NEGATIVE) mg/dL Urine Occult Blood (NEGATIVE) Urine Nitrite (NEGATIVE) Urine Bilirubin (NEGATIVE) Urine Urobilinogen (0.2-1.0) E.U./dL Ur Leukocyte Esterase (NEGATIVE) Urine RBC /HPF Urine WBC /HPF Ur Epithelial Cells /LPF Urine Bacteria (NONE TO FEW) /HPF Urine Mucus (NEGATIVE) /LPF 08/08/17 Range/Units 18:20 WBC (5.0-10.0) 10^3/uL RBC (3.80-5.50) 10^6/uL Hgb (12.0-16.0) g/dL Hct (37.0-47.0) % MCV (82.0-92.0) fL MCH (27.0-31.0) pg MCHC (32.0-36.0) g/dL RDW (11.5-14.5) % Plt Count (150-300) 10^3/uL MPV (7.4-10.4) fL Neut % (Auto) (50.0-70.0) % Lymph % (Auto) (20.0-40.0) % [place] % (Auto) (2.0-8.0) % Eos % (Auto) (1.0-3.0) % Baso % (Auto) (0.0-1.0) % Neut # (Auto) (2.5-7.0) 10^3/uL Lymph # (Auto) (1.0-4.0) 10^3/uL [place] # (Auto) (0.1-0.8) 10^3/uL Eos # (Auto) (0.1-0.3) 10^3/uL Baso # (Auto) (0.0-0.1) 10^3/uL Sodium (136-145) mmol/L Potassium (3.3-5.3) mmol/L Chloride (98-115) mmol/L Carbon Dioxide (21.0-32.0) mmol/L BUN (6-25) mg/dL Creatinine (0.51-1.17) mg/dL Est Cr Clr Drug Dosing Estimated GFR (MDRD) mL/min Glucose (70-110) mg/dL Calcium (8.7-10.3) mg/dL Total Bilirubin (0.2-1.0) mg/dL AST (15-37) U/L ALT (12-78) U/L Alkaline Phosphatase (46-116) IU/L Troponin I (0.00-0.070) ng/mL Total Protein (6.4-8.2) g/dL Albumin (3.00-4.80) g/dL Amylase (25-125) U/L Lipase (73-393) U/L Specimen Type Urincc Urine Color Yellow (YELLOW) Urine Appearance Clear (CLEAR) Urine pH 6.5 (5.0-9.0) Ur Specific [place] 1.010 (1.005-1.030) Urine Protein Negative (NEGATIVE) mg/dL Urine Glucose (UA) Negative (NEGATIVE) mg/dL Urine Ketones Negative (NEGATIVE) mg/dL Urine Occult Blood Negative (NEGATIVE) Urine Nitrite Negative (NEGATIVE) Urine Bilirubin Negative (NEGATIVE) Urine Urobilinogen 0.2 (0.2-1.0) E.U./dL Ur Leukocyte Esterase Trace H (NEGATIVE) Urine RBC 5-10 H /HPF Urine WBC 0-5 /HPF Ur Epithelial Cells Few /LPF Urine Bacteria Rare (NONE TO FEW) /HPF Urine Mucus Occasional H (NEGATIVE) /LPF Meds: Medications Discontinued Medications Generic Name Dose Route Start Last Admin Trade Name Pau PRN Reason Stop Dose Admin Al Hydroxide/Mg Hydroxide 45 ml 08/08/17 18:12 08/08/17 18:17 Gi Cocktail PO 08/08/17 18:13 45 ml ONETIME ONE Administration - Re-Assessments/Exams Free Text/Narrative Re-Assessment/Exam: 08/08/17 19:10 On discussion with the patient under son regarding her lab results and findings. She's had some improvement with a GI cocktail. Her labs UA and EKG are unremarkable. We've discussed following through on these further studies that they're working up for her chronic abdominal complaints. Departure - Departure Time of Disposition: 19:06 Disposition: Home, Self-Care 01 Condition: Good Clinical Impression: Abdominal pain Qualifiers: Abdominal location: epigastric Qualified Code(s): R10.13 - Epigastric pain - Discharge Information Instructions: Gastritis, Adult, [id number], Abdominal Pain, Adult, Easy-to- Read Referrals: Tierra Casanova PA-C [Primary Care Provider] - Additional Instructions: 1. Your given a GI cocktail and your visit and her symptoms improved. You have had chronic epigastric pain that is unchanged over the last 3 weeks. Your lab work which included CBC, complete metabolic panel, troponin, UA are unremarkable. Your EKG showed a normal sinus rhythm and was normal.You have studies scheduled for tomorrow for further workup of your GI symptoms. You need to follow through with her primary care and complete the studies for further workup. 2. I encourage you to follow-up in the emergency room if the symptoms become abruptly worse and the pain is severe without relief. Further evaluation. - My Orders Last 24 Hours: My Active Orders 08/08/17 18:10 EKG 12 Lead [EK] Routine 08/08/17 18:11 EKG Documentation Completion [RC] ASDIRECTED - Assessment/Plan Last 24 Hours: My Active Orders 08/08/17 18:10 EKG 12 Lead [EK] Routine 08/08/17 18:11 EKG Documentation Completion [RC] ASDIRECTED Assessment:: Chronic epigastric abdominal pain Recent history of urinary tract infection cystitis Mild anxiety Tobacco dependence Plan: 1. Your given a GI cocktail and your visit and her symptoms improved. You have had chronic epigastric pain that is unchanged over the last 3 weeks. Your lab work which included CBC, complete metabolic panel, troponin, UA are unremarkable. Your EKG showed a normal sinus rhythm and was normal.You have studies scheduled for tomorrow for further workup of your GI symptoms. You need to follow through with her primary care and complete the studies for further workup. 2. I encourage you to follow-up in the emergency room if the symptoms become abruptly worse and the pain is severe without relief. Further evaluation.
[2017-08-08 19:00] VITALS: BP 162/85
== END 2017-08-08 19:05 | disposition home or self-care (01) ==
LOC: KA.ED 17:20
DX: R10.13 Epigastric pain (principal); I10 Essential (primary) hypertension; K21.9 Gastro-esophageal reflux disease without esophagitis; F41.9 Anxiety disorder, unspecified; F17.210 Nicotine dependence, cigarettes, uncomplicated; Z87.440 Personal history of urinary (tract) infections; Z79.899 Other long term (current) drug therapy
CPT/HCPCS: 36415; 80053; 81001; 82150; 83690; 84484; 85025; 93005; 99284; A9270-GY

== ENCOUNTER 2017-08-28 15:45 | Emergency (ER) | payer MEDICARE, BC ==
[2017-08-28] MEDS ORDERED: GI Cocktail 45 ML BOTTLE PO ONE (16:13)
--- NOTE | 2017-08-28 16:15 | EDM.PDOC ---
ED HPI GENERAL MEDICAL PROBLEM - General Chief Complaint: Gastrointestinal Problem Stated Complaint: Abdominal pain Time Seen by Provider: 08/28/17 15:50 Source of Information: Reports: Patient History Limitations: Reports: No Limitations - History of Present Illness INITIAL COMMENTS - FREE TEXT/NARRATIVE: 77-year-old female presents to the emergency room with complaints of chronic epigastric pain. She states that she's had these symptoms for greater than 1 month. Her symptoms have not changed in severity or intensity. She rates the pain about a 4 out of 10 she has been seen in the emergency room multiple times most recently about 2 weeks ago for urinary tract infection. 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 She denies any specific chest pain or shortness of breath. She denies any lower quadrant pain. Should she states that her pain is a dull ache. She was responded to a GI cocktail in the past. She denies currently any constipation diarrhea, nausea or vomiting. She denies any blood in her stool she denies black tarry stools. She denies any current dysuria or hematuria. She denies frequency of urination. She' s had an upper GI study done about 6 months ago. She's had a history of H. pylori. She's had a prior open cholecystectomy 30 years ago. She states that she 's had stents placed for gallstones in her bile duct 3 years ago. Again she has not had any significant change in her pain in the last month. Duration: Chronic Location: Reports: Abdomen Quality: Reports: Pressure Severity: Moderate Improves with: Reports: None Worsens with: Reports: None Associated Symptoms: Reports: Nausea/Vomiting, Shortness of Breath. Denies: Chest Pain, Diaphoresis, Fever/Chills Upper Abdomen Pain Score (Numeric/FACES): 6 - Related Data Allergies Allergy/AdvReac Type Severity Reaction Status Date / Time No Known Drug Allergies Allergy NKDA Verified 08/28/17 16:07 Home Meds: Home Meds Lisinopril [Prinivil] 20 mg PO DAILY 02/06/17 [History] Cephalexin [Keflex] 500 mg PO Q6HR #28 capsule 08/28/17 [Rx] Metoclopramide HCl [Reglan] 10 mg PO TID PRN #10 tablet 08/28/17 [Rx] Omeprazole 20 mg PO BIDAC 08/28/17 [History] Past Medical History HEENT History: Reports: Cataract Cardiovascular History: Reports: Hypertension Respiratory History: Reports: None Gastrointestinal History: Reports: GERD, Pancreatitis Genitourinary History: Reports: None 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: , 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 (See Below) Other TREE DOCTOR History: 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 Musculoskeletal History: Reports: None Neurological History: Reports: None Psychiatric History: Reports: None Endocrine/Metabolic History: Reports: None Hematologic History: Reports: None Immunologic History: Reports: None Oncologic (Cancer) History: Reports: None Dermatologic History: Reports: None - Infectious Disease History Infectious Disease History: Reports: Chicken Pox, Measles, Mumps, Rubella - Past Surgical History Head Surgeries/Procedures: Reports: None HEENT Surgical History: Reports: Cataract Surgery Cardiovascular Surgical History: Reports: None GI Surgical History: Reports: Appendectomy, Cholecystectomy, Colonoscopy, EGD, ERCP Female Surgical History: Reports: Hysterectomy, Salpingo-Oophorectomy Endocrine Surgical History: Reports: Parathyroidectomy Neurological Surgical History: Reports: None Social & Family History - Family History Family Medical History: Noncontributory - Caffeine Use Caffeine Use: Reports: Coffee, Tea ED ROS GENERAL - Review of Systems Review Of Systems: See Below Constitutional: Reports: No Symptoms HEENT: Reports: No Symptoms Respiratory: Reports: No Symptoms Cardiovascular: Reports: No Symptoms Endocrine: Reports: No Symptoms GI/Abdominal: Reports: Abdominal Pain : Reports: No Symptoms Musculoskeletal: Reports: No Symptoms Skin: Reports: No Symptoms Neurological: Reports: No Symptoms Psychiatric: Reports: No Symptoms Hematologic/Lymphatic: Reports: No Symptoms Immunologic: Reports: No Symptoms ED EXAM, GI/ABD - Physical Exam Exam: See Below Exam Limited By: No Limitations General Appearance: Alert, WD/WN, No Apparent Distress Throat/Mouth: Normal Inspection, Normal Lips, Normal Teeth, Normal Gums, Normal Oropharynx, Normal Voice, No Airway Compromise Head: Atraumatic, Normocephalic Neck: Normal Inspection, Supple, Non-Tender, Full Range of Motion Respiratory/Chest: No Respiratory Distress, Lungs Clear, Normal Breath Sounds, No Accessory Muscle Use, Chest Non-Tender Cardiovascular: Normal Peripheral Pulses, Regular Rate, Rhythm, No Edema, No Gallop, No JVD, No Murmur, No Rub GI/Abdominal Exam: Normal Bowel Sounds, Soft, No Organomegaly, No Distention, No Abnormal Bruit, No Mass, Tender (epigastric) Back Exam: Normal Inspection, Full Range of Motion, NT Extremities: Normal Inspection, Normal Range of Motion, Non-Tender, Normal Capillary Refill, No Pedal Edema Neurological: Alert, Oriented, CN II-XII Intact, Normal Cognition, Normal Gait, Normal Reflexes, No Motor/Sensory Deficits Psychiatric: Normal Affect, Normal Mood EKG INTERPRETATION EKG Date: 08/28/17 Time: 16:29 Rhythm: NSR Rate (Beats/Min): 73 [place]: Normal P-Wave: Present QRS: Normal ST-T: Normal QT: Normal Comparison: No Change Course - Vital Signs Last Recorded V/S: Last Vital Signs Temp 36.2 C 08/28/17 16:21 Pulse 84 08/28/17 16:21 Resp 18 08/28/17 16:21 BP 166/84 H 08/28/17 16:21 Pulse Ox 98 08/28/17 16:21 - Orders/Labs/Meds Orders: Active Orders 24 hr Category Date Time Status EKG Documentation Completion [RC] ASDIRECTED Care 08/28/17 16:12 Active CULTURE URINE [RM] Stat Lab 08/28/17 17:56 Ordered URINALYSIS W/MICROSCOPIC [UA W/MICROSCOPIC] [URIN] Stat Lab 08/28/17 17:30 Ordered EKG 12 Lead [EK] Routine Ther 08/28/17 16:12 Ordered Labs: Laboratory Tests 08/28/17 08/28/17 08/28/17 Range/Units 16:30 16:30 17:30 WBC 7.6 (5.0-10.0) 10^3/uL RBC 4.95 (3.80-5.50) 10^6/uL Hgb 14.3 (12.0-16.0) g/dL Hct 43.8 (37.0-47.0) % MCV 88.5 (82.0-92.0) fL MCH 28.9 (27.0-31.0) pg MCHC 32.6 (32.0-36.0) g/dL RDW 13.8 (11.5-14.5) % Plt Count 268 (150-300) 10^3/uL MPV 7.7 (7.4-10.4) fL Neut % (Auto) 64.1 (50.0-70.0) % Lymph % (Auto) 30.4 (20.0-40.0) % [place] % (Auto) 4.3 (2.0-8.0) % Eos % (Auto) 0.9 L (1.0-3.0) % Baso % (Auto) 0.3 (0.0-1.0) % Neut # (Auto) 4.9 (2.5-7.0) 10^3/uL Lymph # (Auto) 2.3 (1.0-4.0) 10^3/uL [place] # (Auto) 0.3 (0.1-0.8) 10^3/uL Eos # (Auto) 0.1 (0.1-0.3) 10^3/uL Baso # (Auto) 0.0 (0.0-0.1) 10^3/uL Sodium 137 (136-145) mmol/L Potassium 4.2 (3.3-5.3) mmol/L Chloride 104 (98-115) mmol/L Carbon Dioxide 25.6 (21.0-32.0) mmol/L Anion Gap 11.6 (5-15) mmol/L BUN 13 (6-25) mg/dL Creatinine 0.85 (0.51-1.17) mg/dL Est Cr Clr Drug Dosing 46.34 mL/min Estimated GFR (MDRD) > 60 mL/min Glucose 95 mg/dL Calcium 8.9 (8.7-10.3) mg/dL Total Bilirubin 0.2 (0.2-1.0) mg/dL AST 23 (15-37) U/L ALT 24 (12-78) U/L Alkaline Phosphatase 64 (46-116) IU/L Troponin I 0.04 (0.00-0.070) ng/mL Total Protein 6.9 (6.4-8.2) g/dL Albumin 3.42 (3.00-4.80) g/dL Lipase 212 (73-393) U/L Specimen Type Urinvoid Urine Color Yellow (YELLOW) Urine Appearance Clear (CLEAR) Urine pH 7.0 (5.0-9.0) Ur Specific [place] 1.010 (1.005-1.030) Urine Protein Negative (NEGATIVE) mg/dL Urine Glucose (UA) Negative (NEGATIVE) mg/dL Urine Ketones Negative (NEGATIVE) mg/dL Urine Occult Blood Trace-intact H (NEGATIVE) Urine Nitrite Negative (NEGATIVE) Urine Bilirubin Negative (NEGATIVE) Urine Urobilinogen 0.2 (0.2-1.0) E.U./dL Ur Leukocyte Esterase Trace H (NEGATIVE) Urine RBC 0-5 /HPF Urine WBC 5-10 H /HPF Ur Epithelial Cells Few /LPF Urine Bacteria Rare (NONE TO FEW) /HPF Meds: Medications Discontinued Medications Generic Name Dose Route Start Last Admin Trade Name Freq PRN Reason Stop Dose Admin Al Hydroxide/Mg Hydroxide 45 ml 08/28/17 16:13 08/28/17 16:31 Gi Cocktail PO 08/28/17 16:14 45 ml ONETIME ONE Administration Lorazepam 1 mg 08/28/17 17:19 08/28/17 17:47 Ativan IVPUSH 08/28/17 17:20 1 mg ONETIME ONE Administration Metoclopramide HCl 10 mg 08/28/17 17:19 08/28/17 17:54 Reglan IVPUSH 08/28/17 17:20 10 mg ONETIME ONE Administration - Re-Assessments/Exams Free Text/Narrative Re-Assessment/Exam: 08/28/17 17:15 pt reports improvement of epigastric pain after GI cocktail. Departure - Departure Time of Disposition: 18:02 Disposition: Home, Self-Care 01 Condition: Fair Clinical Impression: Chronic abdominal pain Urinary tract infection Qualifiers: Urinary tract infection type: acute cystitis Hematuria presence: without hematuria Qualified Code(s): N30.00 - Acute cystitis without hematuria - Discharge Information Prescriptions: Cephalexin [Keflex] 500 mg PO Q6HR #28 capsule Metoclopramide HCl [Reglan] 10 mg PO TID PRN #10 tablet PRN Reason: Pain Instructions: Urinary Tract Infection, Adult, [id number], Chronic Pain, Adult , Abdominal Pain, Adult Referrals: Tierra Casanova PA-C [Primary Care Provider] - Forms: ED Department Discharge Additional Instructions: 1. discharge home 2. reglan 10mg Q8 PRN 3. Keflex 500mg PO Q6 x 10 days 4. follow up with Clinic this week for further evaluation and treatment 5. return to ER for worsening symptoms - My Orders Last 24 Hours: My Active Orders 08/28/17 16:12 EKG Documentation Completion [RC] ASDIRECTED EKG 12 Lead [EK] Routine 08/28/17 17:30 URINALYSIS W/MICROSCOPIC [UA W/MICROSCOPIC] [URIN] Stat 08/28/17 17:56 CULTURE URINE [RM] Stat - Assessment/Plan Last 24 Hours: My Active Orders 08/28/17 16:12 EKG Documentation Completion [RC] ASDIRECTED EKG 12 Lead [EK] Routine 08/28/17 17:30 URINALYSIS W/MICROSCOPIC [UA W/MICROSCOPIC] [URIN] Stat 08/28/17 17:56 CULTURE URINE [RM] Stat Assessment:: 1. Chronic epigastric pain 2. mild UTI Plan: 1. discharge home 2. reglan 10mg Q8 PRN 3. Keflex 500mg PO Q6 x 10 days 4. follow up with Clinic this week for further evaluation and treatment 5. return to ER for worsening symptoms
[2017-08-28 17:07] LABS: ANION GAP 11.6 mmol/L (5-15); CHLORIDE,CL 104 mmol/L (98-115); SODIUM,NA 137 mmol/L (136-145)
[2017-08-28] MEDS ORDERED: Metoclopramide 10 MG/2 ML SDV IVPUSH ONE (17:19)
[2017-08-28] MEDS ORDERED: LORazepam 2 MG/ML SDV IVPUSH ONE (17:19)
[2017-08-28] MEDS ORDERED: Metoclopramide 10 MG Tab PO PRN (18:04)
[2017-08-28] MEDS ORDERED: Cephalexin 250 MG Cap ONE (18:11)
[2017-08-28] MEDS ORDERED: Metoclopramide 10 MG Tab ONE (18:12)
[2017-08-28] MEDS ORDERED: Cephalexin 250 MG Cap PO SCH (18:15)
[2017-08-28 19:08] VITALS: BP 142/79
== END 2017-08-28 18:45 | disposition home or self-care (01) ==
LOC: KA.ED 15:45
DX: N30.00 Acute cystitis without hematuria (principal); R10.13 Epigastric pain; G89.29 Other chronic pain; I10 Essential (primary) hypertension; Z79.899 Other long term (current) drug therapy
CPT/HCPCS: 36415; 80053; 81001; 83690; 84484; 85025; 87086; 93005; 96374; 96375; 99284; A9270-GY; J2060; J2765

== ENCOUNTER 2017-09-01 18:00 | Emergency (ER) | payer MEDICARE, BC ==
[2017-09-01 18:10] VITALS: BP 169/64
[2017-09-01] MEDS: LORazepam 2 MG/ML SDV ONE (18:41)
[2017-09-01] MEDS: Sodium Chloride 0.9% 5 ML Syringe FLUSH PRN (18:41)
[2017-09-01] MEDS: LORazepam 2 MG/ML SDV IVPUSH ONE (18:42)
--- NOTE | 2017-09-01 18:42 | EDM.PDOC ---
ED HPI GENERAL MEDICAL PROBLEM - General Chief Complaint: Abdominal Pain Stated Complaint: ABD PAIN Time Seen by Provider: 09/01/17 18:20 Source of Information: Reports: Patient History Limitations: Reports: No Limitations - History of Present Illness INITIAL COMMENTS - FREE TEXT/NARRATIVE: 77-year-old female presents ambulatory accompanied by her son with return/ change in chronic abdominal discomfort. 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 She is seen Dr. Josue Rodrigues on Wednesday/yesterday, and has arrangements made for tomorrow 02 September with gastroenterology specialty services in [place]. She has had numerous surgeries and this is thought to be adhesions contributing as well as the recent motility issues. She denies any chest pain shortness of breath, states she gets a urge to urinate but does not dissipate the pain if voiding. Is complete regular cycle for bowel movements every morning stating she strains slightly but is not constipated nor ever experienced obstipated. She had previous H. pylori which was treated presumed successfully as symptoms are different. Denies fever chills, denies any claudication or radiation into the legs. Onset: Other (Months) Duration: Week(s):, Chronic, Colic, Intermittent Abdominal Pain Score (Numeric/FACES): 6 - Related Data Allergies Allergy/AdvReac Type Severity Reaction Status Date / Time No Known Drug Allergies Allergy NKDA Verified 09/01/17 18:10 Home Meds: Home Meds Lisinopril [Prinivil] 20 mg PO DAILY 02/06/17 [History] Omeprazole 20 mg PO BIDAC 08/28/17 [History] Past Medical History HEENT History: Reports: Cataract Cardiovascular History: Reports: Hypertension Respiratory History: Reports: None Gastrointestinal History: Reports: Cholelithiasis, GERD, Pancreatitis, Other ( See Below) (Delayed gastric motility/emptying barium study August 2017) Genitourinary History: Reports: None CASINO CHANGE ATTENDANT History: Reports: , Other (See Below) Other CASINO CHANGE ATTENDANT History: 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 Musculoskeletal History: Reports: None Neurological History: Reports: None Psychiatric History: Reports: None, Anxiety Endocrine/Metabolic History: Reports: None Hematologic History: Reports: None Immunologic History: Reports: None Oncologic (Cancer) History: Reports: None Dermatologic History: Reports: None - Infectious Disease History Infectious Disease History: Reports: Chicken Pox, Measles, Mumps, Rubella - Past Surgical History Head Surgeries/Procedures: Reports: None HEENT Surgical History: Reports: Cataract Surgery Cardiovascular Surgical History: Reports: None GI Surgical History: Reports: Appendectomy, Cholecystectomy, Colonoscopy, EGD, ERCP Female Surgical History: Reports: Hysterectomy, Salpingo-Oophorectomy Endocrine Surgical History: Reports: Parathyroidectomy Neurological Surgical History: Reports: None Social & Family History - Family History Family Medical History: Noncontributory - Caffeine Use Caffeine Use: Reports: Coffee, Tea ED ROS GENERAL - Review of Systems Review Of Systems: See Below Constitutional: Reports: No Symptoms, Weight Loss (Weight loss contributed to anxiety overeating) HEENT: Reports: No Symptoms Respiratory: Reports: No Symptoms Cardiovascular: Reports: No Symptoms Endocrine: Reports: No Symptoms GI/Abdominal: Reports: Abdominal Pain. Denies: Black Stool, Bloody Stool, Constipation, Diarrhea : Reports: No Symptoms Musculoskeletal: Reports: No Symptoms Skin: Reports: No Symptoms Neurological: Reports: No Symptoms Psychiatric: Reports: Anxiety Hematologic/Lymphatic: Reports: No Symptoms Immunologic: Reports: No Symptoms ED EXAM, GENERAL - Physical Exam Exam: See Below Exam Limited By: No Limitations General Appearance: Alert, WD/WN, Anxious Ears: Normal External Exam Nose: Normal Inspection, Normal Mucosa Throat/Mouth: Normal Inspection, Normal Lips, Normal Teeth, Normal Voice, No Airway Compromise Head: Atraumatic, Normocephalic Neck: Normal Inspection, Supple, Non-Tender Respiratory/Chest: No Respiratory Distress, Lungs Clear, Normal Breath Sounds, No Accessory Muscle Use Cardiovascular: Normal Peripheral Pulses, Regular Rate, Rhythm, No Edema, No Murmur GI/Abdominal: Normal Bowel Sounds, No Distention, Tender (Epigastric right mid to upper abdomen) (Female) Exam: Deferred Rectal (Female) Exam: Deferred Back Exam: Full Range of Motion Extremities: Normal Inspection, Normal Range of Motion Neurological: Alert, Oriented, CN II-XII Intact, Normal Cognition Skin Exam: Warm, Dry Course - Vital Signs Last Recorded V/S: Last Vital Signs Temp 35.7 C 09/01/17 18:03 Pulse 73 09/01/17 18:03 Resp 16 09/01/17 18:03 BP 169/64 H 09/01/17 18:03 Pulse Ox 95 09/01/17 18:03 - Orders/Labs/Meds Orders: Active Orders 24 hr Category Date Time Status Sodium Chloride 0.9% [Syrex Flush] Med 09/01/17 18:35 Active 5 ml FLUSH Q8HR PRN Saline Lock Insert [OM.PC] Routine Oth 09/01/17 18:35 Ordered Medication Orders Sodium Chloride (Syrex Flush) 5 ml FLUSH Q8HR PRN PRN Reason: Keep Vein Open Last Admin: 09/01/17 18:41 Dose: 5 ml Meds: Medications Generic Name Dose Route Start Last Admin Trade Name Freq PRN Reason Stop Dose Admin Sodium Chloride 5 ml 09/01/17 18:35 09/01/17 18:41 Syrex Flush FLUSH 5 ml Q8HR PRN Administration Keep Vein Open Discontinued Medications Generic Name Dose Route Start Last Admin Trade Name Freq PRN Reason Stop Dose Admin Lorazepam 1 mg 09/01/17 18:36 09/01/17 18:42 Ativan IVPUSH 09/01/17 18:37 1 mg ONETIME ONE Administration Lorazepam Confirm 09/01/17 18:38 09/01/17 18:41 Ativan Administered 09/01/17 18:39 Not Given Dose 2 mg .ROUTE .STK-MED ONE Departure - Departure Time of Disposition: 18:51 Disposition: Home, Self-Care 01 Condition: Good Clinical Impression: Delayed gastric emptying, Abdominal pain - Discharge Information *PRESCRIPTION DRUG MONITORING PROGRAM REVIEWED*: Yes () *COPY OF PRESCRIPTION DRUG MONITORING REPORT IN PATIENT CHUCK: No Instructions: Abdominal Pain, Adult, [id number] Forms: ED Department Discharge - Problem List & Annotations (1) Anxiety SNOMED Code(s): 49294176 Code(s): F41.9 - ANXIETY DISORDER, UNSPECIFIED Status: Acute Priority: Medium Current Visit: Yes (2) Abdominal pain SNOMED Code(s): 56173961 Code(s): R10.9 - UNSPECIFIED ABDOMINAL PAIN Status: Acute Priority: Medium Current Visit: Yes Qualifiers: Abdominal location: epigastric Qualified Code(s): R10.13 - Epigastric pain - Problem List Review Problem List Initiated/Reviewed/Updated: Yes - My Orders Last 24 Hours: My Active Orders 09/01/17 18:35 Sodium Chloride 0.9% [Syrex Flush] 5 ml FLUSH Q8HR PRN Saline Lock Insert [OM.PC] Routine - Assessment/Plan Last 24 Hours: My Active Orders 09/01/17 18:35 Sodium Chloride 0.9% [Syrex Flush] 5 ml FLUSH Q8HR PRN Saline Lock Insert [OM.PC] Routine Plan: Make sure to attend your gastrointestinal appointment tomorrow as scheduled. Limit your eating and drinking until then to small amounts as well as very bland non-irritating food and drink. Avoid carbonated beverages and gas producing foods. Return if worsens or presents in a different manner than has previously done. With the medication you have been given tonight you do not need to drink excess fluid the remainder of the day. Delayed motility/emptying, adhesions, abdominal migraine as well as anxiety are all possibly contributing to your discomfort.
== END 2017-09-01 19:20 | disposition home or self-care (01) ==
LOC: KA.ED 18:00
DX: R10.13 Epigastric pain (principal); I10 Essential (primary) hypertension; Z79.899 Other long term (current) drug therapy
CPT/HCPCS: 96374; 99283; 99284; J2060

== ENCOUNTER 2017-09-25 15:34 | Emergency (ER) | payer MEDICARE, BC ==
[2017-09-25 15:46] VITALS: BP 139/64
[2017-09-25 16:48] LABS: ANION GAP 18.2 mmol/L (5-15); CHLORIDE,CL 103 mmol/L (98-115); SODIUM,NA 140 mmol/L (136-145)
--- NOTE | 2017-09-25 16:57 | EDM.PDOC ---
ED HPI GENERAL MEDICAL PROBLEM - General Chief Complaint: Abdominal Pain Stated Complaint: ABDOMINAL PAIN Time Seen by Provider: 09/25/17 16:48 Source of Information: Reports: Patient History Limitations: Reports: No Limitations - History of Present Illness INITIAL COMMENTS - FREE TEXT/NARRATIVE: Patient is a 77-year-old female who presents to the emergency department this afternoon with a complaint of abdominal pain. Chronic condition and this is the fourth visit in the last 2 weeks to this emergency department. Patient was also seen 3 times in August and twice in July. Patient has also been seen at [facility] and [facility], as well as undergoing CAT scans, abdominal plain films, and ERCP. All which showed no acute findings. Symptoms persist and patient states that she feels bloated after eating, has dysuria, and is constantly nauseous. Patient considered very difficult, demanding, and left AMA from this ER 6 days ago. Patient states that she is scheduled on Wednesday with a physician from [place] for a upper endoscopy. Will repeat labs and urine today for a termination of condition. Patient denies chest pain, shortness of breath, fever, bowel changes, blood in stool, or change in medication. Onset: Gradual Duration: Chronic Location: Reports: Abdomen Quality: Reports: Ache, Burning Improves with: Reports: None Worsens with: Reports: Eating Associated Symptoms: Reports: Nausea/Vomiting Treatments PROCUREMENT REPRESENTATIVE: Reports: Other (see below) Other Treatments PROCUREMENT REPRESENTATIVE: oxycodone Upper Abdomen Pain Score (Numeric/FACES): 10 - Related Data Allergies Allergy/AdvReac Type Severity Reaction Status Date / Time No Known Drug Allergies Allergy NKDA Verified 09/25/17 15:45 Home Meds: Home Meds Lisinopril [Prinivil] 20 mg PO DAILY 02/06/17 [History] Omeprazole 20 mg PO BIDAC 08/28/17 [History] Past Medical History HEENT History: Reports: Cataract Cardiovascular History: Reports: Hypertension Respiratory History: Reports: None Gastrointestinal History: Reports: Cholelithiasis, GERD, Pancreatitis, Other ( See Below) Genitourinary History: Reports: None DIRECTOR TRANSLATIONAL History: Reports: , Other (See Below) Other DIRECTOR TRANSLATIONAL History: 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 Musculoskeletal History: Reports: None Neurological History: Reports: None Psychiatric History: Reports: None, Anxiety Endocrine/Metabolic History: Reports: None Hematologic History: Reports: None Immunologic History: Reports: None Oncologic (Cancer) History: Reports: None Dermatologic History: Reports: None - Infectious Disease History Infectious Disease History: Reports: Chicken Pox, Measles, Mumps, Rubella - Past Surgical History Head Surgeries/Procedures: Reports: None HEENT Surgical History: Reports: Cataract Surgery Cardiovascular Surgical History: Reports: None GI Surgical History: Reports: Appendectomy, Cholecystectomy, Colonoscopy, EGD, ERCP Female Surgical History: Reports: Hysterectomy, Salpingo-Oophorectomy Endocrine Surgical History: Reports: Parathyroidectomy Neurological Surgical History: Reports: None Social & Family History - Family History Family Medical History: Noncontributory - Caffeine Use Caffeine Use: Reports: Coffee, Tea ED ROS GENERAL - Review of Systems Review Of Systems: ROS reveals no pertinent complaints other than HPI. Constitutional: Reports: No Symptoms HEENT: Reports: No Symptoms Respiratory: Reports: No Symptoms Cardiovascular: Reports: No Symptoms Endocrine: Reports: No Symptoms GI/Abdominal: Reports: No Symptoms : Reports: No Symptoms Musculoskeletal: Reports: No Symptoms Skin: Reports: No Symptoms Neurological: Reports: No Symptoms Psychiatric: Reports: No Symptoms Hematologic/Lymphatic: Reports: No Symptoms Immunologic: Reports: No Symptoms ED EXAM, GI/ABD - Physical Exam Exam: See Below Exam Limited By: No Limitations General Appearance: Alert, WD/WN, No Apparent Distress Throat/Mouth: Normal Inspection, Normal Oropharynx, No Airway Compromise Head: Atraumatic, Normocephalic Neck: Normal Inspection Respiratory/Chest: No Respiratory Distress, Lungs Clear, Normal Breath Sounds, No Accessory Muscle Use, Chest Non-Tender Cardiovascular: Normal Peripheral Pulses, Regular Rate, Rhythm, No Murmur GI/Abdominal Exam: Normal Bowel Sounds, Soft, No Organomegaly, No Distention, No Abnormal Bruit, No Mass, Tender (Mild suprapubic) Back Exam: Normal Inspection. No: CVA Tenderness (L), CVA Tenderness (R) Extremities: Normal Inspection, Normal Range of Motion, No Pedal Edema, Normal Capillary Refill Neurological: Alert, Oriented, Normal Cognition Psychiatric: Normal Affect, Other (Angry) Skin Exam: Warm, Dry, Intact, Normal Color, No Rash Lymphatic: No Adenopathy Course - Vital Signs Last Recorded V/S: Last Vital Signs Temp 98.6 F 09/25/17 15:41 Pulse 102 H 09/25/17 15:41 Resp 20 09/25/17 15:41 BP 139/64 09/25/17 15:41 Pulse Ox 100 09/25/17 15:41 - Orders/Labs/Meds Orders: Active Orders 24 hr Category Date Time Status URINALYSIS W/MICROSCOPIC [UA W/MICROSCOPIC] [URIN] Stat Lab 09/25/17 17:04 Ordered Labs: Laboratory Tests 09/25/17 09/25/17 09/25/17 Range/Units 16:25 16:25 17:05 WBC 8.4 (5.0-10.0) 10^3/uL RBC 4.74 (3.80-5.50) 10^6/uL Hgb 14.1 (12.0-16.0) g/dL Hct 42.0 (37.0-47.0) % MCV 88.6 (82.0-92.0) fL MCH 29.7 (27.0-31.0) pg MCHC 33.5 (32.0-36.0) g/dL RDW 14.1 (11.5-14.5) % Plt Count 249 (150-300) 10^3/uL MPV 7.4 (7.4-10.4) fL Neut % (Auto) 60.9 (50.0-70.0) % Lymph % (Auto) 33.6 (20.0-40.0) % [place] % (Auto) 4.9 (2.0-8.0) % Eos % (Auto) 0.6 L (1.0-3.0) % Baso % (Auto) 0.0 (0.0-1.0) % Neut # (Auto) 5.1 (2.5-7.0) 10^3/uL Lymph # (Auto) 2.8 (1.0-4.0) 10^3/uL [place] # (Auto) 0.4 (0.1-0.8) 10^3/uL Eos # (Auto) 0.1 (0.1-0.3) 10^3/uL Baso # (Auto) 0.0 (0.0-0.1) 10^3/uL Sodium 140 (136-145) mmol/L Potassium 3.7 (3.3-5.3) mmol/L Chloride 103 (98-115) mmol/L Carbon Dioxide 22.5 (21.0-32.0) mmol/L Anion Gap 18.2 H (5-15) mmol/L BUN 17 (6-25) mg/dL Creatinine 0.90 (0.51-1.17) mg/dL Est Cr Clr Drug Dosing 43.77 mL/min Estimated GFR (MDRD) > 60 mL/min Glucose 103 mg/dL Calcium 8.8 (8.7-10.3) mg/dL Total Bilirubin 0.3 (0.2-1.0) mg/dL AST 22 (15-37) U/L ALT 23 (12-78) U/L Alkaline Phosphatase 60 (46-116) IU/L Total Protein 6.7 (6.4-8.2) g/dL Albumin 3.47 (3.00-4.80) g/dL Lipase 171 (73-393) U/L Specimen Type Urincc Urine Color Yellow (YELLOW) Urine Appearance Clear (CLEAR) Urine pH 8.5 (5.0-9.0) Ur Specific [place] 1.015 (1.005-1.030) Urine Protein Negative (NEGATIVE) mg/dL Urine Glucose (UA) Negative (NEGATIVE) mg/dL Urine Ketones Negative (NEGATIVE) mg/dL Urine Occult Blood Negative (NEGATIVE) Urine Nitrite Negative (NEGATIVE) Urine Bilirubin Negative (NEGATIVE) Urine Urobilinogen 0.2 (0.2-1.0) E.U./dL Ur Leukocyte Esterase Negative (NEGATIVE) Urine RBC 0-5 /HPF Urine WBC 0-5 /HPF Ur Epithelial Cells Few /LPF Urine Bacteria Few (NONE TO FEW) /HPF Ethyl Alcohol < 3 (0-3) mg/dL - Re-Assessments/Exams Free Text/Narrative Re-Assessment/Exam: 09/25/17 17:32 Patient afebrile, nontoxic appearing, vital signs stable. All labs and urine within normal limits. Patient will follow-up with Dr. Hurtado as scheduled on Wednesday for upper endoscopy. 09/25/17 17:34 Departure - Departure Time of Disposition: 17:34 Disposition: Home, Self-Care 01 Condition: Good Clinical Impression: Abdominal pain of unknown etiology - Discharge Information Instructions: Abdominal Pain, Adult, [id number] Referrals: Tierra Casanova PA-C [Primary Care Provider] - Forms: ED Department Discharge Additional Instructions: Follow-up as scheduled on Wednesday for upper endoscopy. Return to emergency [facility] if symptoms continue or worsen. - My Orders Last 24 Hours: My Active Orders 09/25/17 17:04 URINALYSIS W/MICROSCOPIC [UA W/MICROSCOPIC] [URIN] Stat - Assessment/Plan Last 24 Hours: My Active Orders 09/25/17 17:04 URINALYSIS W/MICROSCOPIC [UA W/MICROSCOPIC] [URIN] Stat Assessment:: Chronic abdominal pain Plan: Follow-up as scheduled on Wednesday
== END 2017-09-25 17:45 | disposition home or self-care (01) ==
LOC: KA.ED 15:34
DX: R10.10 Upper abdominal pain, unspecified (principal); I10 Essential (primary) hypertension
CPT/HCPCS: 36415; 80053; 81001; 83690; 85025; 99284; G0480; 99283

== ENCOUNTER 2017-09-28 07:03 | Day surgery (SDC) | payer MEDICARE, BC ==
[~2017-09-28 07:03] MED LIST changes: -Lactated Ringers 1,000 ML IV SCH; +Lidocaine 2% 5 ML SDV ONE; +Midazolam 1 MG/ML 2 ML SDV ONE; +Propofol 200 MG/20 ML SDV ONE; +fentaNYL 100 MCG/2 ML SDV ONE
[2017-09-28] MEDS: Lactated Ringers 1,000 ML IV SCH (07:34)
[2017-09-28] MEDS ORDERED: Lidocaine 2% 5 ML SDV IV ONE (08:20)
[2017-09-28] MEDS ORDERED: fentaNYL 100 MCG/2 ML SDV IV ONE (08:20)
[2017-09-28] MEDS ORDERED: Midazolam 1 MG/ML 2 ML SDV IV ONE (08:20)
[2017-09-28] MEDS ORDERED: Propofol 200 MG/20 ML SDV IV ONE (08:20)
--- NOTE | 2017-09-28 08:27 | PCM.PN ---
- General Info Date of Service: 09/28/17 - Review of Systems Systems Review Comment:: 77 y/o female with history of postprandial abdominal pain is referred for EGD. She has a history of H. pylori diagnosis. She also has a history of choledocholithiasis. I have discussed the proposed upper endoscopy with the patient. She agrees to proceed accepting risks. Her recent history and physical is reviewed and there is no significant change from this exam. - Patient Data Vitals - Most Recent: Last Vital Signs Temp 98.2 F 09/28/17 07:00 Pulse 72 09/28/17 07:00 Resp 16 09/28/17 07:00 BP 140/60 09/28/17 07:00 Pulse Ox 98 09/28/17 07:00 Weight - Most Recent: 58.967 kg Med Orders - Current: Current Medications Lactated Ringer's (Ringers, Lactated) 1,000 mls @ 50 mls/hr IV ASDIRECTED GRACY Last Admin: 09/28/17 07:34 Dose: 50 mls/hr Sodium Chloride (Syrex Flush) 5 ml FLUSH Q8HR PRN PRN Reason: Keep Vein Open Discontinued Medications Fentanyl (Sublimaze) Confirm Administered Dose 100 mcg .ROUTE .STK-MED ONE Stop: 09/28/17 06:54 Lidocaine (Xylocaine-Mpf 2%) Confirm Administered Dose 5 ml .ROUTE .STK-MED ONE Stop: 09/28/17 06:54 Midazolam HCl (Versed 1 Mg/Ml) Confirm Administered Dose 2 mg .ROUTE .STK-MED ONE Stop: 09/28/17 06:53 Propofol (Diprivan 20 Ml) Confirm Administered Dose 200 mg .ROUTE .STK-MED ONE Stop: 09/28/17 06:54 - Problem List Review Problem List Initiated/Reviewed/Updated: Yes - My Orders Last 24 Hours: My Active Orders 09/27/17 16:14 Resuscitation Status Routine 09/28/17 07:00 Patient to Empty Bladder [RC] ASDIRECTED Peripheral IV Care [RC] . DIRECTED Vital Signs [RC] PER UNIT ROUTINE Lactated Ringers [Ringers, Lactated] 1,000 ml IV ASDIRECTED Sodium Chloride 0.9% [Syrex Flush] 5 ml FLUSH Q8HR PRN Peripheral IV Insertion Adult [OM.PC] Routine 09/28/17 07:55 Verify Patient Consent Obtain [RC] ASDIRECTED 09/28/17 Breakfast Nothing Per Oral Diet [DIET] - Assessment Assessment:: Abdominal pain - Plan Plan:: EGD
--- NOTE | 2017-09-28 08:54 | PCM.OPNOTE ---
- General Post-Op/Procedure Note Date of Surgery/Procedure: 09/28/17 Operative Procedure(s): EGD with Biopsy Findings: Normal-appearing esophagus stomach and duodenum Pre Op Diagnosis: Abdominal pain Post-Op Diagnosis: Same Anesthesia Technique: MAC Primary Surgeon: Bala Mendoza Pathology: Biopsies of stomach and duodenum Output, Urine Amount: 0 EBL in mLs: 2 Complications: None Condition: Good
[2017-09-28 09:52] VITALS: BP 106/50
--- NOTE | 2017-09-28 11:16 | OR ---
DATE OF SURGERY: 09/28/2017 SURGEON: Bala Mendoza MD PREOPERATIVE DIAGNOSIS: Abdominal pain. POSTOPERATIVE DIAGNOSIS: Abdominal pain. OPERATION PERFORMED: Esophagogastroduodenoscopy with biopsy. INDICATIONS FOR SURGERY: This 77-year-old female has been having persistent and worsening symptoms of postprandial abdominal pain. She has a known history of H. pylori in the past. She is referred for diagnostic upper endoscopy. FINDINGS: The patient's esophagus, stomach, and duodenum to the 3rd portion appear normal as viewed via the gastroscope. No visible signs of inflammation or ulcers are seen, and the anatomy appears normal. DESCRIPTION OF PROCEDURE: The patient was taken to the operating room. She was given intravenous sedation and with her in the left lateral decubitus position, the esophagus was intubated under direct visualization with the Olympus gastroscope. This was carefully advanced down through the esophagus, stomach, and into the duodenum where examination to the 3rd portion was performed. Random biopsies of the duodenal mucosa were taken because of the patient's history of abdominal pain. The scope was withdrawn back into the stomach where full examination including retroflexed examination of the fundus was performed. Random biopsies of the antrum are taken to rule out H. pylori. The GE junction and esophagus were then carefully re-examined as the scope was removed and after the procedure is completed and no sign of any complication, the scope was removed and the patient was taken from the operating room in satisfactory condition. ESTIMATED BLOOD LOSS: 2 mL. COMPLICATIONS: None. PROGNOSIS: Good. /[id number]/MODL
== END 2017-09-28 10:10 | disposition home or self-care (01) ==
LOC: KA.SDS 07:03
PROVIDERS: ATTEND Surgery
DX: R10.9 Unspecified abdominal pain (principal); K29.70 Gastritis, unspecified, without bleeding; K31.89 Other diseases of stomach and duodenum; K21.9 Gastro-esophageal reflux disease without esophagitis; I10 Essential (primary) hypertension; Z87.891 Personal history of nicotine dependence; Z87.19 Personal history of other diseases of the digestive system; Z79.899 Other long term (current) drug therapy
CPT/HCPCS: 00731; J2250; J2704; J3010; J7120

== ENCOUNTER 2017-11-06 13:28 | Emergency (ER) | payer MEDICARE, BC ==
[2017-11-06 13:49] VITALS: BP 177/69
[2017-11-06] MEDS ORDERED: Sodium Chloride 0.9% 5 ML Syringe FLUSH PRN (14:09)
[2017-11-06] MEDS: Sodium Chloride 0.9% 1,000 ML IV ONE (14:37)
--- NOTE | 2017-11-06 14:43 | EDM.PDOC ---
ED HPI GENERAL MEDICAL PROBLEM - General Chief Complaint: Abdominal Pain Stated Complaint: LOWER ABDOMEN PAIN Time Seen by Provider: 11/06/17 13:30 Source of Information: Reports: Patient History Limitations: Reports: No Limitations - History of Present Illness INITIAL COMMENTS - FREE TEXT/NARRATIVE: Patient is a 77-year-old female who presents to the emergency department this afternoon with a complaint of abdominal pain. Patient states that this is a chronic problem, located suprapubic, and feels like bloating. Patient states that she has daily bowel movements, and denies nausea or vomiting, diarrhea, blood in stool. This patient has been seen in this emergency Department for the same symptoms multiple times in past several months and was evaluated by general surgery for upper GI with EGD in September. There were no ulcers and anatomy was said to be normal. Patient denies fever, chest pain, shortness of breath, dysuria, nausea, vomiting, diarrhea, or blood in stool Onset: Gradual Duration: Chronic Location: Reports: Abdomen Quality: Reports: Other (Not well described) Improves with: Reports: None Worsens with: Reports: None Associated Symptoms: Reports: No Other Symptoms Lower Abdominal Pain Score (Numeric/FACES): 10 - Related Data Allergies Allergy/AdvReac Type Severity Reaction Status Date / Time No Known Drug Allergies Allergy NKDA Verified 11/06/17 13:49 Home Meds: Home Meds Lisinopril [Prinivil] 20 mg PO DAILY 02/06/17 [History] Omeprazole 20 mg PO BIDAC 08/28/17 [History] Bisacodyl [Dulcolax] 15 mg PO BEDTIME 11/06/17 [History] Past Medical History HEENT History: Reports: Cataract Cardiovascular History: Reports: Hypertension Respiratory History: Reports: None Gastrointestinal History: Reports: Cholelithiasis, GERD, Pancreatitis, Other ( See Below) Genitourinary History: Reports: None 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: , 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 (See Below) Other DROPPER TANK STORAGE History: 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 Musculoskeletal History: Reports: None Neurological History: Reports: None Psychiatric History: Reports: None, Anxiety Endocrine/Metabolic History: Reports: None Hematologic History: Reports: None Immunologic History: Reports: None Oncologic (Cancer) History: Reports: None Dermatologic History: Reports: None - Infectious Disease History Infectious Disease History: Reports: Chicken Pox, Measles, Mumps, Rubella - Past Surgical History Head Surgeries/Procedures: Reports: None HEENT Surgical History: Reports: Cataract Surgery Cardiovascular Surgical History: Reports: None GI Surgical History: Reports: Appendectomy, Cholecystectomy, Colonoscopy, EGD, ERCP Female Surgical History: Reports: Hysterectomy, Salpingo-Oophorectomy Endocrine Surgical History: Reports: Parathyroidectomy Neurological Surgical History: Reports: None Oncologic Surgical History: Reports: None Social & Family History - Family History Family Medical History: Noncontributory - Caffeine Use Caffeine Use: Reports: Coffee, Tea ED ROS GENERAL - Review of Systems Review Of Systems: ROS reveals no pertinent complaints other than HPI. Constitutional: Reports: No Symptoms HEENT: Reports: No Symptoms Respiratory: Reports: No Symptoms Cardiovascular: Reports: No Symptoms Endocrine: Reports: No Symptoms GI/Abdominal: Reports: Abdominal Pain : Reports: No Symptoms Musculoskeletal: Reports: No Symptoms Skin: Reports: No Symptoms Neurological: Reports: No Symptoms Psychiatric: Reports: No Symptoms Hematologic/Lymphatic: Reports: No Symptoms Immunologic: Reports: No Symptoms ED EXAM, GI/ABD - Physical Exam Exam: See Below Exam Limited By: No Limitations General Appearance: Alert, WD/WN, Mild Distress Nose: Normal Inspection Throat/Mouth: Normal Inspection, Normal Oropharynx, No Airway Compromise Head: Atraumatic, Normocephalic Neck: Normal Inspection Respiratory/Chest: No Respiratory Distress, Lungs Clear, Normal Breath Sounds, No Accessory Muscle Use, Chest Non-Tender Cardiovascular: Regular Rate, Rhythm, No Murmur GI/Abdominal Exam: Normal Bowel Sounds, Soft, No Organomegaly, No Distention, No Abnormal Bruit, No Mass, Tender (Suprapubic) Back Exam: Normal Inspection. No: CVA Tenderness (L), CVA Tenderness (R) Extremities: Normal Inspection, No Pedal Edema Neurological: Alert, Oriented, Normal Cognition Psychiatric: Anxious Skin Exam: Warm, Dry, Intact, Normal Color, No Rash Lymphatic: No Adenopathy Course - Vital Signs Last Recorded V/S: Last Vital Signs Temp 94.8 F L 11/06/17 13:46 Pulse 92 11/06/17 13:46 Resp 16 11/06/17 13:46 BP 177/69 H 11/06/17 13:46 Pulse Ox 100 11/06/17 13:46 - Orders/Labs/Meds Orders: Active Orders 24 hr Category Date Time Status Peripheral IV Care [RC] . DIRECTED Care 11/06/17 14:09 Ordered Sodium Chloride 0.9% [Syrex Flush] Med 11/06/17 14:09 Ordered 5 ml FLUSH Q8HR PRN Peripheral IV Insertion Adult [OM.PC] Routine Oth 11/06/17 14:09 Ordered Medication Orders Sodium Chloride (Syrex Flush) 5 ml FLUSH Q8HR PRN PRN Reason: Keep Vein Open Labs: Laboratory Tests 11/06/17 11/06/17 11/06/17 Range/Units 14:20 14:20 14:25 WBC 7.26 (5.00-10.00) 10^3/uL RBC 5.21 (3.80-5.50) 10^6/uL Hgb 16.0 (12.0-16.0) g/dL Hct 46.5 (37.0-47.0) % MCV 89.3 (82.0-92.0) fL MCH 30.7 (27.0-31.0) pg MCHC 34.4 (32.0-36.0) g/dL RDW 13.8 (11.5-14.5) % Plt Count 297 (150-400) 10^3/uL MPV 9.5 (7.4-10.4) fL Immature Gran % (Auto) 0.3 (0.0-5.0) % Neut % (Auto) 56.1 (50.0-70.0) % Lymph % (Auto) 37.7 (20.0-40.0) % [place] % (Auto) 5.1 (2.0-8.0) % Eos % (Auto) 0.4 L (1.0-3.0) % Baso % (Auto) 0.4 (0.0-1.0) % Immature Gran # (Auto) 0.02 (0.00-0.50) 10^3/uL Neut # (Auto) 4.07 (2.50-7.00) 10^3/uL Lymph # (Auto) 2.74 (1.00-4.00) 10^3/uL Ward # (Auto) 0.37 (0.10-0.80) 10^3/uL Eos # (Auto) 0.03 L (0.10-0.30) 10^3/uL Baso # (Auto) 0.03 (0.00-0.10) 10^3/uL Sodium 142 (136-145) mmol/L Potassium 4.4 (3.3-5.3) mmol/L Chloride 102 (98-115) mmol/L Carbon Dioxide 23.8 (21.0-32.0) mmol/L Anion Gap 20.6 H (5-15) mmol/L BUN 18 (6-25) mg/dL Creatinine 0.83 (0.51-1.17) mg/dL Est Cr Clr Drug Dosing 47.46 mL/min Estimated GFR (MDRD) > 60 mL/min Glucose 106 mg/dL Calcium 9.4 (8.7-10.3) mg/dL Total Bilirubin 0.3 (0.2-1.0) mg/dL AST 34 (15-37) U/L ALT 26 (12-78) U/L Alkaline Phosphatase 68 (46-116) IU/L Total Protein 7.9 (6.4-8.2) g/dL Albumin 4.32 (3.00-4.80) g/dL Lipase 228 (73-393) U/L Specimen Type Urincc Urine Color Yellow (YELLOW) Urine Appearance Clear (CLEAR) Urine pH 7.5 (5.0-9.0) Ur Specific [place] 1.010 (1.005-1.030) Urine Protein Negative (NEGATIVE) mg/dL Urine Glucose (UA) Negative (NEGATIVE) mg/dL Urine Ketones Negative (NEGATIVE) mg/dL Urine Occult Blood Negative (NEGATIVE) Urine Nitrite Negative (NEGATIVE) Urine Bilirubin Negative (NEGATIVE) Urine Urobilinogen 0.2 (0.2-1.0) E.U./dL Ur Leukocyte Esterase Negative (NEGATIVE) Urine RBC 0-5 /HPF Urine WBC 0-5 /HPF Ur Epithelial Cells Few /LPF Urine Bacteria Few (NONE TO FEW) /HPF Ethyl Alcohol < 3 (0-3) mg/dL Meds: Medications Generic Name Dose Route Start Last Admin Trade Name Freq PRN Reason Stop Dose Admin Sodium Chloride 5 ml 11/06/17 14:09 Syrex Flush FLUSH Q8HR PRN Keep Vein Open Discontinued Medications Generic Name Dose Route Start Last Admin Trade Name Freq PRN Reason Stop Dose Admin Sodium Chloride 1,000 mls @ 999 mls/hr 11/06/17 14:09 11/06/17 14:37 Normal Saline IV 11/06/17 15:09 999 mls/hr .BOLUS ONE Administration - Re-Assessments/Exams Free Text/Narrative Re-Assessment/Exam: 11/06/17 16:04 Patient afebrile, nontoxic appearing, vital signs stable, pain controlled. Patient will follow-up with Dr. Delmi garcia on Wednesday. Departure - Departure Time of Disposition: 16:04 Disposition: Home, Self-Care 01 Condition: Good Clinical Impression: Abdominal pain of unknown etiology, Chronic abdominal pain, Anxiety - Discharge Information Instructions: Abdominal Bloating, Abdominal Pain, Adult, [id number] Referrals: Rachel Mccauley MD [Primary Care Provider] - Forms: ED Department Discharge Additional Instructions: Follow-up with Dr. Delmi garcia on Wednesday. Return to emergency room sooner if symptoms continue or worsen. - My Orders Last 24 Hours: My Active Orders 11/06/17 14:09 Peripheral IV Care [RC] . DIRECTED Sodium Chloride 0.9% [Syrex Flush] 5 ml FLUSH Q8HR PRN Peripheral IV Insertion Adult [OM.PC] Routine - Assessment/Plan Last 24 Hours: My Active Orders 11/06/17 14:09 Peripheral IV Care [RC] . DIRECTED Sodium Chloride 0.9% [Syrex Flush] 5 ml FLUSH Q8HR PRN Peripheral IV Insertion Adult [OM.PC] Routine Assessment:: Chronic abdominal pain Plan: Follow-up with PCP
[2017-11-06 14:59] LABS: ANION GAP 20.6 mmol/L (5-15); CHLORIDE,CL 102 mmol/L (98-115); SODIUM,NA 142 mmol/L (136-145)
== END 2017-11-06 16:12 | disposition home or self-care (01) ==
LOC: KA.ED 13:28
DX: R10.30 Lower abdominal pain, unspecified (principal); I10 Essential (primary) hypertension; F41.9 Anxiety disorder, unspecified; Z79.899 Other long term (current) drug therapy
CPT/HCPCS: 80053; 81001; 83690; 85025; 96360; 99284; G0480; J7030

== ENCOUNTER 2019-07-14 20:42 | Emergency (ER) | payer MEDICARE, BC ==
--- NOTE | 2019-07-14 21:06 | EDM.PDOC ---
ED HPI GENERAL MEDICAL PROBLEM - General Chief Complaint: General Stated Complaint: numbness in right arm Time Seen by Provider: 07/14/19 20:50 Source of Information: Reports: Patient History Limitations: Reports: No Limitations - History of Present Illness INITIAL COMMENTS - FREE TEXT/NARRATIVE: Patient presents with right arm redness, swelling and numb feeling. The numb feeling started this morning but the swelling and redness about 4 hours ago. Not aware of any fever. No insect bites that she knows of. No weakness. Denies history of MRSA. 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: , 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 (See Below) Other ATM MANAGER History: 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 Musculoskeletal History: Reports: None Neurological History: Reports: None Psychiatric History: Reports: None, Anxiety Endocrine/Metabolic History: Reports: None Hematologic History: Reports: None Immunologic History: Reports: None Oncologic (Cancer) History: Reports: None Dermatologic History: Reports: None - Infectious Disease History Infectious Disease History: Reports: Chicken Pox, Measles, Mumps, Rubella - Past Surgical History Head Surgeries/Procedures: Reports: None HEENT Surgical History: Reports: Cataract Surgery Cardiovascular Surgical History: Reports: None GI Surgical History: Reports: Appendectomy, Cholecystectomy, Colonoscopy, EGD, ERCP Female Surgical History: Reports: Hysterectomy, Salpingo-Oophorectomy Endocrine Surgical History: Reports: Parathyroidectomy Neurological Surgical History: Reports: None Oncologic Surgical History: Reports: None Social & Family History - Family History Family Medical History: Noncontributory - Caffeine Use Caffeine Use: Reports: Coffee, Tea ED ROS GENERAL - Review of Systems Review Of Systems: See Below Constitutional: Denies: Chills, Malaise, Weakness HEENT: Reports: Other (no facial droop or speech difficulty ). Denies: Throat Pain, Vision Change Respiratory: Denies: Shortness of Breath, Cough Cardiovascular: Denies: Chest Pain, Lightheadedness, Syncope GI/Abdominal: Denies: Abdominal Pain, Diarrhea, Vomiting : Denies: Dysuria (she finished up a course of antibiotic (?) 3-4 days ago for a UTI.), Flank Pain Musculoskeletal: Denies: Neck Pain, Shoulder Pain, Arm Pain, Back Pain, Hand Pain, Leg Pain Skin: Denies: Cyanosis, Jaundice, Mottled, Pallor, Diaphoresis Neurological: Denies: Confusion, Dizziness, Headache, Seizure, Syncope, Trouble Speaking, Difficulty Walking, Weakness (no extremity weakness), Change in Speech Psychiatric: Denies: Agitation, Anxiety, Confusion ED EXAM, GENERAL - Physical Exam Exam: See Below Exam Limited By: No Limitations General Appearance: Alert, WD/WN, No Apparent Distress Eye Exam: Bilateral Eye: EOMI, Normal Inspection, PERRL Ears: Normal External Exam, Hearing Grossly Normal Nose: Normal Inspection, No Blood Throat/Mouth: Normal Inspection, Normal Voice, No Airway Compromise Head: Atraumatic, Normocephalic Neck: Normal Inspection, Full Range of Motion Respiratory/Chest: No Respiratory Distress, Lungs Clear, Normal Breath Sounds, No Accessory Muscle Use Cardiovascular: Regular Rate, Rhythm, No Murmur GI/Abdominal: Normal Bowel Sounds, Soft, Non-Tender, No Organomegaly, No Distention, No Abnormal Bruit, No Mass Back Exam: Normal Inspection, Full Range of Motion. 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), No Pedal Edema, Increased Warmth (right forearm from ulnar wrist to mid- forearm, with erythema and moderate swelling), Other (No evidence of abscess or purulence) Neurological: Alert, Oriented, Normal Cognition, No Motor/Sensory Deficits ( sensation to touch is full and normal in RUE) Psychiatric: Normal Affect, Normal Mood Skin Exam: Warm, Dry, Intact, Normal Color (except as above), No Rash Course - Orders/Labs/Meds Labs: Laboratory Tests 07/14/19 Range/Units 21:18 WBC 6.34 (5.00-10.00) 10^3/uL RBC 4.50 (3.80-5.50) 10^6/uL Hgb 11.7 L (12.0-16.0) g/dL Hct 36.9 L (37.0-47.0) % MCV 82.0 D (82.0-92.0) fL MCH 26.0 L (27.0-31.0) pg MCHC 31.7 L (32.0-36.0) g/dL RDW 18.3 H (11.5-14.5) % Plt Count 287 (150-400) 10^3/uL MPV 9.2 (7.4-10.4) fL Immature Gran % (Auto) 0.0 (0.0-5.0) % Neut % (Auto) 57.7 (50.0-70.0) % Lymph % (Auto) 32.6 (20.0-40.0) % [place] % (Auto) 7.9 (2.0-8.0) % Eos % (Auto) 1.3 (1.0-3.0) % Baso % (Auto) 0.5 (0.0-1.0) % Neut # (Auto) 3.66 (2.50-7.00) 10^3/uL Lymph # (Auto) 2.07 (1.00-4.00) 10^3/uL [place] # (Auto) 0.50 (0.10-0.80) 10^3/uL Eos # (Auto) 0.08 L (0.10-0.30) 10^3/uL Baso # (Auto) 0.03 (0.00-0.10) 10^3/uL Immature Gran # (Auto) 0.00 (0.00-0.50) 10^3/uL Meds: Medications Discontinued Medications Generic Name Dose Route Start Last Admin Trade Name Freq PRN Reason Stop Dose Admin Cephalexin 1,000 mg 07/14/19 21:26 Keflex PO 07/14/19 21:27 ONETIME ONE - Re-Assessments/Exams Free Text/Narrative Re-Assessment/Exam: 07/14/19 21:31 Discussed findings and treatment plan with patient. I checked the clinic record and she was given Levaquin for UTI a couple weeks ago. Given first two doses of Keflex and Rx to fill in the morning. Discharged to home in stable condition. Departure - Departure Time of Disposition: 21:28 Disposition: Home, Self-Care 01 Condition: Good Clinical Impression: Cellulitis of forearm, right - Discharge Information Instructions: Cellulitis, Adult, [id number] Forms: ED Department Discharge Additional Instructions: Take the antibiotic as directed. Follow up with your PCP on Wednesday if it is not improving. Return to ER if significantly worsening over the weekend. Sepsis Event Note - Focused Exam Date Exam was Performed: 07/14/19 Time Exam was Performed: 21:33
[2019-07-14] MEDS ORDERED: Cephalexin 250 MG Cap PO ONE (21:26)
[2019-07-14] MEDS ORDERED: Acetaminophen 500 MG Tab PO ONE (21:45)
[2019-07-14] MEDS ORDERED: Ibuprofen 600 MG Tab PO ONE (21:45)
[2019-07-15 03:59] VITALS: BP 159/75; PULSE 88
== END 2019-07-14 21:55 | disposition home or self-care (01) ==
LOC: KA.ED 20:42
DX: L03.113 Cellulitis of right upper limb (principal); I10 Essential (primary) hypertension; K21.9 Gastro-esophageal reflux disease without esophagitis; Z79.899 Other long term (current) drug therapy
CPT/HCPCS: 36415; 85025; 99283; A9270-GY

== ENCOUNTER 2020-02-07 19:05 | Emergency (ER) | payer MEDICARE, BC ==
--- NOTE | 2020-02-07 19:24 | EDM.PDOC ---
ED HPI GENERAL MEDICAL PROBLEM - General Chief Complaint: Abdominal Pain Stated Complaint: abdominal pain Time Seen by Provider: 02/07/20 19:23 Source of Information: Reports: Patient - History of Present Illness INITIAL COMMENTS - FREE TEXT/NARRATIVE: Mg, 79 yo female,Presents to the emergency department with 2+ hours of Progressively worsening left-sided abdominal discomfort. She was seen in the clinic on 01 February diagnosed with UTI and placed on ciprofloxacin twice daily. Her culture is still pending on that at this time preliminary was Enterococcus but no details are given. She states she is noted worsening hematuria and had significant discomfort starting this late afternoon. This pain is worse than what she is experienced in her previous bowel obstructions, of which she has never required surgical intervention. She denies fever chills. She does speak of having what she describes as renal lithiasis but it has not troubled her in 4+ years since she told it existed on her left side. She experienced a bowel movement today with no discomfort but stated it was significantly firm/hard. She is noted bowel sounds/gurgling of her stomach throughout the day. Onset: Today Lower Abdomen Pain Score (Numeric/FACES): 10 - Related Data Allergies Allergy/AdvReac Type Severity Reaction Status Date / Time No Known Drug Allergies Allergy NKDA Verified 02/07/20 19:19 Home Meds: Home Meds Lisinopril [Prinivil] 20 mg PO DAILY 02/06/17 [History] Omeprazole 20 mg PO DAILY 08/28/17 [History] Acetaminophen 650 mg PO Q6H PRN 02/07/20 [History] Ciprofloxacin [Ciprofloxacin HCl] 500 mg PO BID 02/07/20 [History] Ketorolac [Toradol] 10 mg PO TID PRN 5 Days #15 tab 02/07/20 [Rx] Vitamin B Complex 1 cap PO DAILY 02/07/20 [History] Vitamin E 1,000 unit PO DAILY 02/07/20 [History] Past Medical History HEENT History: Reports: Cataract Cardiovascular History: Reports: Hypertension Respiratory History: Reports: None Gastrointestinal History: Reports: Cholelithiasis, GERD, Pancreatitis, Other (See Below) Genitourinary History: Reports: None, Renal Calculus 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: , Other (See Below) Other NUCLEAR MEDICINE CHIEF TECHNOLOGIST History: 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 Musculoskeletal History: Reports: None Neurological History: Reports: None Psychiatric History: Reports: None, Anxiety Endocrine/Metabolic History: Reports: None Hematologic History: Reports: None Immunologic History: Reports: None Oncologic (Cancer) History: Reports: None Dermatologic History: Reports: None - Infectious Disease History Infectious Disease History: Reports: Chicken Pox, Measles, Mumps, Rubella - Past Surgical History Head Surgeries/Procedures: Reports: None HEENT Surgical History: Reports: Cataract Surgery Cardiovascular Surgical History: Reports: None GI Surgical History: Reports: Appendectomy, Cholecystectomy, Colonoscopy, EGD, ERCP Female Surgical History: Reports: Hysterectomy, Salpingo-Oophorectomy Endocrine Surgical History: Reports: Parathyroidectomy Neurological Surgical History: Reports: None Oncologic Surgical History: Reports: None - Past Imaging History Past Imaging History: Reports: CAT Scan, Xray Social & Family History - Family History Family Medical History: No Pertinent Family History - Caffeine Use Caffeine Use: Reports: Coffee, Tea ED ROS GENERAL - Review of Systems Review Of Systems: Comprehensive ROS is negative, except as noted in HPI. ED EXAM, GENERAL - Physical Exam Exam: See Below Free Text/Narrative:: Alert, oriented, in mild painful distress with some associated nausea. HEENT is negative to discharge or deformity with pink moist mucous membranes. PERRLA no icterus no injection. Neck is soft supple with no lymphadenopathy. Thorax is clear throughout no wheezes no crackles. Cardiac is regular I do not appreciate murmur. Abdomen is soft bowel sounds are present, tenderness to the left lateral abdomen into the urinary bladder region. I do not appreciate any significant or ganomegaly. There is left flank discomfort. Mild nausea exists but does not worsen to the examination palpation. She is able to move extremities about with no additional distress, able to ambulate to the bathroom with no significant distress. Skin is warm and dry with no edema noted. Course - Vital Signs Last Recorded V/S: Last Vital Signs Temp 96.8 F L 02/07/20 19:09 Pulse 97 02/07/20 19:09 Resp 20 02/07/20 19: BP 162/85 H 02/07/20 19:09 Pulse Ox 100 02/07/20 19:09 - Orders/Labs/Meds Orders: Active Orders 24 hr Category Date Time Status Peripheral IV Care [RC] . DIRECTED Care 02/07/20 19:23 Active Sodium Chloride 0.9% [Saline Flush] Med 12/23/20 19:23 Active 10 ml FLUSH Q8HR PRN Peripheral IV Insertion Adult [OM.PC] Routine Oth 02/07/20 19:23 Ordered Medication Orders Sodium Chloride (Saline Flush) 10 ml FLUSH Q8HR PRN PRN Reason: keep vein open Last Admin: 02/07/20 19:30 Dose: 10 ml Documented by: LUCINA Labs: Laboratory Tests 02/07/20 02/07/20 02/07/20 Range/Units 19:20 19:20 19:20 WBC 9.10 (5.00-10.00) 10^3/uL RBC 4.98 (3.80-5.50) 10^6/uL Hgb 14.8 D (12.0-16.0) g/dL Hct 44.1 (37.0-47.0) % MCV 88.6 D (82.0-92.0) fL MCH 29.7 (27.0-31.0) pg MCHC 33.6 (32.0-36.0) g/dL RDW 14.2 (11.5-14.5) % Plt Count 245 (150-400) 10^3/uL MPV 9.6 (7.4-10.4) fL Immature Gran % (Auto) 0.2 (0.0-5.0) % Neut % (Auto) 54.2 (50.0-70.0) % Lymph % (Auto) 38.4 (20.0-40.0) % [place] % (Auto) 6.2 (2.0-8.0) % Eos % (Auto) 0.7 L (1.0-3.0) % Baso % (Auto) 0.3 (0.0-1.0) % Neut # (Auto) 4.94 (2.50-7.00) 10^3/uL Lymph # (Auto) 3.49 (1.00-4.00) 10^3/uL [place] # (Auto) 0.56 (0.10-0.80) 10^3/uL Eos # (Auto) 0.06 L (0.10-0.30) 10^3/uL Baso # (Auto) 0.03 (0.00-0.10) 10^3/uL Immature Gran # (Auto) 0.02 (0.00-0.50) 10^3/uL Sodium 138 (136-145) mmol/L Potassium 3.5 (3.5-5.1) mmol/L Chloride 101 (98-107) mmol/L Carbon Dioxide 23.9 (21.0-32.0) mmol/L Anion Gap 16.6 H (5-15) mmol/L BUN 16 (7-18) mg/dL Creatinine 0.81 (0.51-1.17) mg/dL Est Cr Clr Drug Dosing 47.04 mL/min Estimated GFR (MDRD) > 60 mL/min Glucose 99 (70-140) mg/dL Calcium 9.5 (8.7-10.3) mg/dL Total Bilirubin 0.4 (0.2-1.0) mg/dL AST 29 (15-37) U/L ALT 28 (14-63) U/L Alkaline Phosphatase 83 (46-116) U/L Total Protein 7.4 (6.4-8.2) g/dL Albumin 3.84 (3.40-5.00) g/dL Amylase 63 (25-125) U/L Lipase 156 (73-393) U/L Specimen Type Urincc Urine Color Brown H (YELLOW) Urine Appearance Turbid H (CLEAR) Urine pH 8.5 (5.0-9.0) Ur Specific [place] 1.015 (1.005-1.030) Urine Protein 100 H (NEGATIVE) mg/dL Urine Glucose (UA) Negative (NEGATIVE) mg/dL Urine Ketones Negative (NEGATIVE) mg/dL Urine Occult Blood Large H (NEGATIVE) Urine Nitrite Negative (NEGATIVE) Urine Bilirubin Negative (NEGATIVE) Urine Urobilinogen 0.2 (0.2-1.0) E.U./dL Ur Leukocyte Esterase Negative (NEGATIVE) Urine RBC Packed (0-5) /HPF Urine WBC 0-5 (0-5) /HPF Ur Epithelial Cells Rare /LPF Urine Bacteria Occasional (NONE TO FEW) /HPF Meds: Medications Generic Name Dose Route Start Last Admin Trade Name Freq PRN Reason Stop Dose Admin Sodium Chloride 10 ml 02/07/20 19:23 02/07/20 19:30 Saline Flush FLUSH 10 ml Q8HR PRN Administration keep vein open Discontinued Medications Generic Name Dose Route Start Last Admin Trade Name Freq PRN Reason Stop Dose Admin Hydrocodone Bitart/Acetaminophen 1 tab 02/07/20 21:09 02/07/20 21:27 [place] 325-5 Mg PO 02/07/20 21:10 Not Given ONETIME ONE Sodium Chloride 1,000 mls @ 999 mls/hr 02/07/20 19:30 Normal Saline IV 02/11/20 19:28 ASDIRECTED GRACY Ketorolac Tromethamine 30 mg 02/07/20 19:30 02/07/20 19:45 Toradol IVPUSH 02/07/20 19:31 30 mg ONETIME ONE Administration Ondansetron HCl 4 mg 02/07/20 19:30 02/07/20 19:37 Zofran IVPUSH 02/07/20 19:31 4 mg ONETIME ONE Administration - Re-Assessments/Exams Free Text/Narrative Re-Assessment/Exam: 02/07/20 21:03 Was noted complete resolution of her discomfort approximately 30 minutes after the administration of the ketorolac. She remains pain-free as she goes to [place] and for the remainder of her stay in the emergency department prior to discharge. Departure - Departure Time of Disposition: 21:13 Disposition: Home, Self-Care 01 Condition: Good, Fair Clinical Impression: Flank pain, acute, Hydronephrosis due to obstruction of ureter, Renal lithiasis Urinary tract infection Qualifiers: Urinary tract infection type: acute cystitis Hematuria presence: with hematuria Qualified Code(s): N30.01 - Acute cystitis with hematuria - Discharge Information *PRESCRIPTION DRUG MONITORING PROGRAM REVIEWED*: Not Applicable *COPY OF PRESCRIPTION DRUG MONITORING REPORT IN PATIENT CHUCK: Not Applicable Prescriptions: Ketorolac [Toradol] 10 mg PO TID PRN 5 Days #15 tab PRN Reason: Abdominal Pain Instructions: Kidney Stones, [id number], Urinary Tract Infection, Adult, [id number], Flank Pain, Adult Referrals: Tierra Casanova PA-C [Primary Care Provider] - Forms: ED Department Discharge Additional Instructions: You have been given 1 hydrocodone acetaminophen to take when you get home and get ready for bed. There is a prescription for you to metal pickling equipment operator at [facility] pharmacy in the morning for ketorolac 10 mg #15 1 to be taken 3 times a day as needed for pain. Make sure you drink plenty of water as you need to flush the stone from your system. You need to strain all of your urine from this point forward and in the event you pass the stone, place it in the urine collection bottle and bring to the clinic to have a study done. You need to follow-up with the clinic early next week. In the event this becomes worse over the weekend and specifically the holiday, you will need to return to the emergency department for reevaluation and treatment. Take all of your medications as directed and follow-up at the clinic as previously scheduled or next week for follow-up on this visit. Sepsis Event Note (ED) - Evaluation Sepsis Screening Result: No Definite Risk - Focused Exam Vital Signs: Vital Signs Temp Pulse Resp BP Pulse Ox 02/07/20 19:09 96.8 F L 97 20 162/85 H 100 - Problem List & Annotations (1) Flank pain, acute SNOMED Code(s): 876541742, 322744930 Code(s): R10.9 - UNSPECIFIED ABDOMINAL PAIN Status: Acute Priority: High (2) Abdominal pain of unknown etiology SNOMED Code(s): 116286568 Code(s): R10.9 - UNSPECIFIED ABDOMINAL PAIN Status: Acute Priority: High (3) Nausea SNOMED Code(s): 325019972 Code(s): R11.0 - NAUSEA Status: Acute Priority: High (4) Urinary tract infection SNOMED Code(s): 94296943 Code(s): N39.0 - URINARY TRACT INFECTION, SITE NOT SPECIFIED Status: Chronic Priority: Medium Qualifiers: Urinary tract infection type: acute cystitis Hematuria presence: with hematuria Qualified Code(s): N30.01 - Acute cystitis with hematuria (5) Renal lithiasis SNOMED Code(s): 74760126 Code(s): N20.0 - CALCULUS OF KIDNEY Status: Acute Priority: High (6) Hydronephrosis due to obstruction of ureter SNOMED Code(s): 177060549 Code(s): N13.2 - HYDRONEPHROSIS WITH RENAL AND URETERAL CALCULOUS OBSTRUCTION Status: Acute Priority: High - Problem List Review Problem List Initiated/Reviewed/Updated: Yes - My Orders Last 24 Hours: My Active Orders 02/07/20 19:23 Peripheral IV Care [RC] . DIRECTED Sodium Chloride 0.9% [Saline Flush] 10 ml FLUSH Q8HR PRN Peripheral IV Insertion Adult [OM.PC] Routine - Assessment/Plan Last 24 Hours: My Active Orders 02/07/20 19:23 Peripheral IV Care [RC] . DIRECTED Sodium Chloride 0.9% [Saline Flush] 10 ml FLUSH Q8HR PRN Peripheral IV Insertion Adult [OM.PC] Routine Plan: You have been given 1 hydrocodone acetaminophen to take when you get home and get ready for bed. There is a prescription for you to metal pickling equipment operator at [facility] pharmacy in the morning for ketorolac 10 mg #15 1 to be taken 3 times a day as needed for pain. Make sure you drink plenty of water as you need to flush the stone from your system. You need to strain all of your urine from this point forward and in the event you pass the stone, place it in the urine collection bottle and bring to the clinic to have a study done. You need to follow-up with the clinic early next week. In the event this becomes worse over the weekend and specifically the holiday, you will need to return to the emergency department for reevaluation and treatment. Take all of your medications as directed and follow-up at the clinic as previously scheduled or next week for follow-up on this visit.
[2020-02-07] MEDS ORDERED: Sodium Chloride 0.9% 1,000 ML IV SCH (19:30)
[2020-02-07] MEDS: Sodium Chloride 0.9% 10 ML Syringe FLUSH PRN (19:30)
[2020-02-07] MEDS: Ondansetron 4 MG/2 ML SDV IVPUSH ONE (19:37)
[2020-02-07] MEDS: Ketorolac 30 MG/ML SDV IVPUSH ONE (19:45)
[2020-02-07 20:03] LABS: ANION GAP 16.6 mmol/L (5-15); CHLORIDE,CL 101 mmol/L (98-107); SODIUM,NA 138 mmol/L (136-145)
--- NOTE | 2020-02-07 20:52 | CT ---
[id number] CT/CT Abdomen Pelvis WO IV Exam: CT Abdomen Pelvis WO IV Clinical Data: LEFT SIDE FLANK PAIN HEMATURIA COMPARISON: CORRELATION IS MADE WITH FEBRUARY 11, 2017 FINDINGS: A 3 mm calculus at the left UVJ is seen on image 117, series 2 This results in mild to moderate hydronephrosis The pelvis shows no mass or adenopathy There are atheromatous calcifications There are other similar sized calculi of both kidneys Air in the biliary tree is stable since February 11, 2017 There are some limitations of the exam without IV contrast The liver and spleen, aorta, adrenals, kidneys, and pancreas otherwise appear unremarkable The appendix is thought to be present and appears of normal caliber The uterus and ovaries are not seen IMPRESSION: 3 MM RADIOPAQUE CALCULUS AT LEFT UVJ MILD TO MODERATE LEFT-SIDED HYDRONEPHROSIS BILATERAL NEPHROLITHIASIS Gerardo Rincon MD 02/07/202050 Thank you for allowing us to participate in the care of your patient.
[2020-02-07] MEDS: Acetaminophen/HYDROcodone 325-5 MG Tab PO ONE (21:27)
[2020-02-08 02:51] VITALS: BP 133/69; PULSE 80
== END 2020-02-07 21:30 | disposition home or self-care (01) ==
LOC: KA.ED 19:05 → SUPCPDRO 19:05 → KA.ED 21:30
DX: N13.2 Hydronephrosis with renal and ureteral calculous obstruction (principal); N30.01 Acute cystitis with hematuria; I10 Essential (primary) hypertension; K21.9 Gastro-esophageal reflux disease without esophagitis; Z79.899 Other long term (current) drug therapy
CPT/HCPCS: 36415; 74176; 80053; 81001; 82150; 83690; 85025; 96374; 96375; 99284; A9270; J1885; J2405

== ENCOUNTER 2020-02-11 13:05 | Emergency (ER) | payer MEDICARE, BC ==
[2020-02-11] MEDS ORDERED: Sodium Chloride 0.9% 1,000 ML IV ONE (13:28)
[2020-02-11] MEDS ORDERED: Sodium Chloride 0.9% 10 ML Syringe FLUSH PRN (13:29)
[2020-02-11] MEDS ORDERED: HYDROmorphone 1 MG/ML Syringe IVPUSH ONE (13:29)
--- NOTE | 2020-02-11 13:30 | EDM.PDOC ---
ED HPI GENERAL MEDICAL PROBLEM - General Chief Complaint: Flank Pain Stated Complaint: ABDOMINAL PAIN Time Seen by Provider: 02/11/20 13:28 Source of Information: Reports: Patient History Limitations: Reports: No Limitations - History of Present Illness INITIAL COMMENTS - FREE TEXT/NARRATIVE: facundo,79-year-old female, returns to the emergency department today after increasing discomfort to the left flank and down into her urinary bladder. She was seen on the for renal colic 3 days ago at [address] performed at that time showing numerous lithiasis bilateral as well as hydronephrosis. Since then she is taken her medications and been compliant with pressure building today beyond where it had been previously She has been straining her urine stating she has not seen anything in the strainer, and is concerned with the increased pain that stone is stuck somewhere. Onset: Gradual Duration: Day(s):, Getting Worse Quality: Reports: Burning, Pressure, Sharp Severity: Severe Improves with: Reports: None Worsens with: Reports: Movement Context: Reports: Activity Associated Symptoms: Reports: No Other Symptoms Left Lower Posterior Flank Pain Score (Numeric/FACES): 10 - Related Data Allergies Allergy/AdvReac Type Severity Reaction Status Date / Time No Known Drug Allergies Allergy NKDA Verified 02/11/20 13:59 Home Meds: Home Meds Lisinopril [Prinivil] 20 mg PO DAILY 02/06/17 [History] Omeprazole 20 mg PO DAILY 08/28/17 [History] Acetaminophen 650 mg PO Q6H PRN 02/07/20 [History] Ketorolac [Toradol] 10 mg PO TID PRN 5 Days #15 tab 02/07/20 [Rx] Vitamin B Complex 1 cap PO DAILY 02/07/20 [History] Vitamin E 1,000 unit PO DAILY 02/07/20 [History] Past Medical History HEENT History: Reports: Cataract Cardiovascular History: Reports: Hypertension Respiratory History: Reports: None Gastrointestinal History: Reports: Cholelithiasis, GERD, Pancreatitis, Other (See Below) Genitourinary History: Reports: None, Renal Calculus 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: , Other (See Below) Other SERVICE DISMANTLER History: 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 Musculoskeletal History: Reports: None Neurological History: Reports: None Psychiatric History: Reports: None, Anxiety Endocrine/Metabolic History: Reports: None Hematologic History: Reports: None Immunologic History: Reports: None Oncologic (Cancer) History: Reports: None Dermatologic History: Reports: None - Infectious Disease History Infectious Disease History: Reports: Chicken Pox, Measles, Mumps, Rubella - Past Surgical History Head Surgeries/Procedures: Reports: None HEENT Surgical History: Reports: Cataract Surgery Cardiovascular Surgical History: Reports: None GI Surgical History: Reports: Appendectomy, Cholecystectomy, Colonoscopy, EGD, ERCP Female Surgical History: Reports: Hysterectomy, Salpingo-Oophorectomy Endocrine Surgical History: Reports: Parathyroidectomy Neurological Surgical History: Reports: None Oncologic Surgical History: Reports: None - Past Imaging History Past Imaging History: Reports: CAT Scan, Xray Social & Family History - Family History Family Medical History: No Pertinent Family History - Caffeine Use Caffeine Use: Reports: Coffee ED ROS GENERAL - Review of Systems Review Of Systems: Comprehensive ROS is negative, except as noted in HPI. ED EXAM, GENERAL - Physical Exam Exam: See Below Free Text/Narrative:: Alert, oriented in painful distress. HEENT is benign to discharge nor deformity. Thorax is clear Cardiac is regular Pain to the left flank and radiating left abdomen and into the left pelvic region/urinary bladder. Is ambulatory and is able to converse freely during assessment and treatment phase. Course - Vital Signs Last Recorded V/S: Last Vital Signs Temp 97.1 F 02/11/20 13:53 Pulse 86 02/11/20 13:53 Resp 18 02/11/20 13:53 BP 174/88 H 02/11/20 13:53 Pulse Ox 99 02/11/20 13:53 - Orders/Labs/Meds Orders: Active Orders 24 hr Category Date Time Status Peripheral IV Care [RC] . DIRECTED Care 02/11/20 13:29 Active Sodium Chloride 0.9% [Saline Flush] Med 02/11/20 13:29 Active 10 ml FLUSH Q8HR PRN Peripheral IV Insertion Adult [OM.PC] Routine Oth 02/11/20 13:29 Ordered Medication Orders Sodium Chloride (Saline Flush) 10 ml FLUSH Q8HR PRN PRN Reason: keep vein open Meds: Medications Generic Name Dose Route Start Last Admin Trade Name Freq PRN Reason Stop Dose Admin Sodium Chloride 10 ml 02/11/20 13:29 Saline Flush FLUSH Q8HR PRN keep vein open Discontinued Medications Generic Name Dose Route Start Last Admin Trade Name Freq PRN Reason Stop Dose Admin Hydromorphone HCl 1 mg 02/11/20 13:29 02/11/20 13:48 Dilaudid IVPUSH 02/11/20 13:30 1 mg ONETIME ONE Administration Sodium Chloride 1,000 mls @ 999 mls/hr 02/11/20 13:28 02/11/20 13:41 Normal Saline IV 02/11/20 14:28 999 mls/hr .BOLUS ONE Administration Departure - Departure Time of Disposition: 14:54 Disposition: Home, Self-Care 01 Condition: Good Clinical Impression: Hydronephrosis due to obstruction of ureter, Renal lithiasis - Discharge Information *PRESCRIPTION DRUG MONITORING PROGRAM REVIEWED*: Not Applicable *COPY OF PRESCRIPTION DRUG MONITORING REPORT IN PATIENT CHUCK: Not Applicable Referrals: Tierra Casanova PA-C [Primary Care Provider] - Forms: ED Department Discharge Additional Instructions: The stone that was seen in the ureter pelvic junction is no longer showing on the scan, likely passed into the bladder. The stones in the kidneys are still present and unremarkable. Continue to drink plenty of fluids, strain your urine being very careful to observe for any evidence of stone in the strainer so it may be brought in for analysis. Contact clinic tomorrow or return to the emergency department if your pain should recur or worsen. Sepsis Event Note (ED) - Focused Exam Vital Signs: Vital Signs Temp Pulse Resp BP Pulse Ox 02/11/20 13:53 97.1 F 86 18 174/88 H 99 - Problem List & Annotations (1) Flank pain, acute SNOMED Code(s): 838716282, 704129230 Code(s): R10.9 - UNSPECIFIED ABDOMINAL PAIN Status: Acute Priority: High Current Visit: No (2) Renal lithiasis SNOMED Code(s): 80295579 Code(s): N20.0 - CALCULUS OF KIDNEY Status: Chronic Priority: High Current Visit: No (3) Hydronephrosis due to obstruction of ureter SNOMED Code(s): 106644798 Code(s): N13.2 - HYDRONEPHROSIS WITH RENAL AND URETERAL CALCULOUS OBSTRUCTION Status: Acute Priority: High Current Visit: No - Problem List Review Problem List Initiated/Reviewed/Updated: Yes - My Orders Last 24 Hours: My Active Orders 02/11/20 13:29 Peripheral IV Care [RC] . DIRECTED Sodium Chloride 0.9% [Saline Flush] 10 ml FLUSH Q8HR PRN Peripheral IV Insertion Adult [OM.PC] Routine - Assessment/Plan Last 24 Hours: My Active Orders 02/11/20 13:29 Peripheral IV Care [RC] . DIRECTED Sodium Chloride 0.9% [Saline Flush] 10 ml FLUSH Q8HR PRN Peripheral IV Insertion Adult [OM.PC] Routine Plan: The stone that was seen in the ureter pelvic junction is no longer showing on the scan, likely passed into the bladder. The stones in the kidneys are still present and unremarkable. Continue to drink plenty of fluids, strain your urine being very careful to observe for any evidence of stone in the strainer so it may be brought in for analysis. Contact clinic tomorrow or return to the emergency department if your pain should recur or worsen.
[2020-02-11 13:58] VITALS: BP 174/88; PULSE 86
--- NOTE | 2020-02-11 14:45 | CT ---
[id number] CT/CT Abdomen Pelvis WO IV Exam: CT Abdomen Pelvis WO IV Clinical Data: HYDRONEPHROSIS RENAL CALCULI COMPARISON: CORRELATION IS MADE WITH FEBRUARY 07, 2020 FINDINGS: There is residual mild to moderate left-sided hydronephrosis The previously present calculus at the left UPJ no longer is seen. Clinical correlation would be helpful to know if the patient has passed a calculus. There is evidence otherwise of bilateral nephrolithiasis Air in the biliary tree again is seen The liver and spleen, adrenals, aorta, and pancreas otherwise are unremarkable The pelvis shows no mass or adenopathy IMPRESSION: RESIDUAL MILD TO MODERATE LEFT-SIDED HYDRONEPHROSIS LEFT SIDE UVJ CALCULUS NOT IDENTIFIED CURRENTLY BILATERAL NEPHROLITHIASIS Gerardo Rincon MD 02/11/20 [id number] Thank you for allowing us to participate in the care of your patient.
== END 2020-02-11 15:00 | disposition home or self-care (01) ==
LOC: KA.ED 13:05
DX: N13.2 Hydronephrosis with renal and ureteral calculous obstruction (principal); I10 Essential (primary) hypertension; K21.9 Gastro-esophageal reflux disease without esophagitis; Z79.899 Other long term (current) drug therapy
CPT/HCPCS: 74176; 96374; 99283; 99284-25; J1170; J7030

== ENCOUNTER 2020-02-21 15:14 | Emergency (ER) | payer MEDICARE, BC ==
[2020-02-21 15:24] VITALS: BP 149/83; PULSE 93
[2020-02-21] MEDS ORDERED: Sodium Chloride 0.9% 10 ML Syringe FLUSH PRN (15:34)
[2020-02-21 16:10] LABS: ANION GAP 12.8 mmol/L (5-15); CHLORIDE,CL 105 mmol/L (98-107); SODIUM,NA 138 mmol/L (136-145)
--- NOTE | 2020-02-21 16:37 | EDM.PDOC ---
ED HPI GENERAL MEDICAL PROBLEM - General Chief Complaint: Abdominal Pain Stated Complaint: ABD PAIN Time Seen by Provider: 02/21/20 15:58 Source of Information: Reports: Patient History Limitations: Reports: No Limitations - History of Present Illness INITIAL COMMENTS - FREE TEXT/NARRATIVE: Patient presents with left abdominal pain since 0300 this morning. It started just after urinating and has continued all day. She has known nephrolithiasis and passed a 3mm ureteral stone nearly two weeks ago. She has also been diagnosed recently with a bladder mass and is scheduled for cystoscopy next week at [place]. Patient tells me she drinks a lot of water, nearly a gallon a day to help with the kidney stones; she doesn't drink any pop. 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 Lower Abdomen Pain Score (Numeric/FACES): 9 - Related Data Allergies Allergy/AdvReac Type Severity Reaction Status Date / Time No Known Drug Allergies Allergy NKDA Verified 02/21/20 15:48 Home Meds: Home Meds Lisinopril [Prinivil] 20 mg PO DAILY 02/06/17 [History] Omeprazole 20 mg PO DAILY 08/28/17 [History] Acetaminophen 650 mg PO Q6H PRN 02/07/20 [History] Ketorolac [Toradol] 10 mg PO TID PRN 5 Days #15 tab 02/07/20 [Rx] Vitamin B Complex 1 cap PO DAILY 02/07/20 [History] Vitamin E 1,000 unit PO DAILY 02/07/20 [History] Calcium Carbonate/Vitamin D3 [Calcium 500 mg-Vit D3 600 Unit] 1 each PO DAILY 02/21/20 [History] Past Medical History HEENT History: Reports: Cataract Cardiovascular History: Reports: Hypertension Respiratory History: Reports: None Gastrointestinal History: Reports: Cholelithiasis, GERD, Pancreatitis Genitourinary History: Reports: Renal Calculus, UTI, Recurrent 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 FIELD PROFESSIONAL 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: Reports: , Other (See Below) Other 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 FIELD PROFESSIONAL History: 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 Musculoskeletal History: Reports: None Neurological History: Reports: None Psychiatric History: Reports: None, Anxiety Endocrine/Metabolic History: Reports: None Hematologic History: Reports: None Immunologic History: Reports: None Oncologic (Cancer) History: Reports: Bladder Dermatologic History: Reports: None - Infectious Disease History Infectious Disease History: Reports: Chicken Pox, Measles, Mumps, Rubella - Past Surgical History Head Surgeries/Procedures: Reports: None HEENT Surgical History: Reports: Cataract Surgery, LASIK Cardiovascular Surgical History: Reports: None GI Surgical History: Reports: Appendectomy, Cholecystectomy, Colonoscopy, EGD, ERCP Female Surgical History: Reports: Hysterectomy, Salpingo-Oophorectomy Endocrine Surgical History: Reports: Parathyroidectomy Neurological Surgical History: Reports: None Oncologic Surgical History: Reports: None - Past Imaging History Past Imaging History: Reports: CAT Scan, Xray Social & Family History - Family History Family Medical History: No Pertinent Family History - Tobacco Use Tobacco Use Status *Q: Never Tobacco User Second Hand Smoke Exposure: No - Caffeine Use Caffeine Use: Reports: Coffee - Recreational Drug Use Recreational Drug Use: No ED ROS GENERAL - Review of Systems Review Of Systems: See Below Constitutional: Denies: Fever, Weakness HEENT: Denies: Ear Pain, Throat Pain, Vision Change Respiratory: Denies: Shortness of Breath, Cough Cardiovascular: Denies: Chest Pain, Lightheadedness, Syncope GI/Abdominal: Reports: Abdominal Pain. Denies: Diarrhea, Vomiting : Reports: Flank Pain (gone now). Denies: Dysuria Musculoskeletal: Denies: Neck Pain, Shoulder Pain, Arm Pain Skin: Denies: Cyanosis, Jaundice, Mottled, Pallor, Diaphoresis Neurological: Denies: Confusion, Headache, Seizure, Syncope, Trouble Speaking, Difficulty Walking Psychiatric: Denies: Agitation, Confusion ED EXAM, RENAL/ - Physical Exam Exam: See Below Exam Limited By: No Limitations General Appearance: Alert, WD/WN, No Apparent Distress Eye Exam: Bilateral Eye: EOMI, Normal Inspection, PERRL Ears: Normal External Exam, Hearing Grossly Normal Nose: Normal Inspection, No Blood Throat/Mouth: Normal Inspection, Normal Lips, Normal Voice, No Airway Compromise Head: Atraumatic, Normocephalic Neck: Normal Inspection, Full Range of Motion Respiratory/Chest: No Respiratory Distress, Lungs Clear, Normal Breath Sounds Cardiovascular: Regular Rate, Rhythm, No Murmur GI/Abdominal: Normal Bowel Sounds, Soft, Non-Tender, No Organomegaly, No Diste ntion Back Exam: Normal Inspection, Full Range of Motion. No: CVA Tenderness (L), CVA Tenderness (R) Extremities: Normal Inspection, Normal Range of Motion Neurological: Alert, Oriented, Normal Cognition, No Motor/Sensory Deficits Psychiatric: Normal Affect, Normal Mood Skin Exam: Warm, Dry, Intact, Normal Color, No Rash Course - Vital Signs Last Recorded V/S: Last Vital Signs Temp 97.8 F 02/21/20 15:20 Pulse 93 02/21/20 15:20 Resp 16 02/21/20 15:20 BP 149/83 H 02/21/20 15:20 Pulse Ox 98 02/21/20 15:20 - Orders/Labs/Meds Orders: Active Orders 24 hr Category Date Time Status CULTURE URINE [RM] Stat Lab 02/21/20 15:40 Received Peripheral IV Insertion Adult [OM.PC] Routine Oth 02/21/20 15:34 Ordered Labs: Laboratory Tests 02/21/20 02/21/20 02/21/20 Range/Units 15:35 15:35 15:40 WBC 8.34 (5.00-10.00) 10^3/uL RBC 4.61 (3.80-5.50) 10^6/uL Hgb 13.8 (12.0-16.0) g/dL Hct 41.8 (37.0-47.0) % MCV 90.7 (82.0-92.0) fL MCH 29.9 (27.0-31.0) pg MCHC 33.0 (32.0-36.0) g/dL RDW 14.3 (11.5-14.5) % Plt Count 288 (150-400) 10^3/uL MPV 9.8 (7.4-10.4) fL Immature Gran % (Auto) 0.1 (0.0-5.0) % Neut % (Auto) 65.2 (50.0-70.0) % Lymph % (Auto) 29.5 (20.0-40.0) % [place] % (Auto) 4.3 (2.0-8.0) % Eos % (Auto) 0.5 L (1.0-3.0) % Baso % (Auto) 0.4 (0.0-1.0) % Neut # (Auto) 5.44 (2.50-7.00) 10^3/uL Lymph # (Auto) 2.46 (1.00-4.00) 10^3/uL [place] # (Auto) 0.36 (0.10-0.80) 10^3/uL Eos # (Auto) 0.04 L (0.10-0.30) 10^3/uL Baso # (Auto) 0.03 (0.00-0.10) 10^3/uL Immature Gran # (Auto) 0.01 (0.00-0.50) 10^3/uL Sodium 138 (136-145) mmol/L Potassium 3.9 (3.5-5.1) mmol/L Chloride 105 (98-107) mmol/L Carbon Dioxide 24.1 (21.0-32.0) mmol/L Anion Gap 12.8 (5-15) mmol/L BUN 17 (7-18) mg/dL Creatinine 0.87 (0.51-1.17) mg/dL Est Cr Clr Drug Dosing 43.79 mL/min Estimated GFR (MDRD) > 60 mL/min Glucose 108 (70-140) mg/dL Calcium 9.0 (8.7-10.3) mg/dL Total Bilirubin 0.3 (0.2-1.0) mg/dL AST 21 (15-37) U/L ALT 22 (14-63) U/L Alkaline Phosphatase 67 (46-116) U/L Total Protein 6.9 (6.4-8.2) g/dL Albumin 3.79 (3.40-5.00) g/dL Lipase 126 (73-393) U/L Specimen Type Urinvoid Urine Color Light yellow (YELLOW) Urine Appearance Clear (CLEAR) Urine pH 5.5 (5.0-9.0) Ur Specific [place] 1.010 (1.005-1.030) Urine Protein Negative (NEGATIVE) mg/dL Urine Glucose (UA) Negative (NEGATIVE) mg/dL Urine Ketones Negative (NEGATIVE) mg/dL Urine Occult Blood Trace-intact H (NEGATIVE) Urine Nitrite Negative (NEGATIVE) Urine Bilirubin Negative (NEGATIVE) Urine Urobilinogen 0.2 (0.2-1.0) E.U./dL Ur Leukocyte Esterase Small H (NEGATIVE) Urine RBC 0-5 (0-5) /HPF Urine WBC 75-100 H (0-5) /HPF Ur Epithelial Cells Few /LPF Urine Bacteria Few (NONE TO FEW) /HPF Meds: Medications Discontinued Medications Generic Name Dose Route Start Last Admin Trade Name Freq PRN Reason Stop Dose Admin Sodium Chloride 10 ml 01/06/21 15:34 Saline Flush FLUSH Q8HR PRN keep vein open - Re-Assessments/Exams Free Text/Narrative Re-Assessment/Exam: 02/21/20 16:45 UA shows some leukocyte esterase and elevated WBCs. CMP and lipase are good. UC ordered. Patient says the pain is gone now; it went away about the time she urinated for the UA. I encouraged her to strain the urine for the next few days to see if she can catch the stone for analysis. We discussed her upcoming cystoscopy and the need for her to finish the course of antibiotic she started yesterday. She doesn't like taking it as most antibiotics seem to cause GI upset for her. She also doesn't use her Omeprazole very regularly and wonders if she doesn't even need it as she has never had heartburn (she says it was started 3 years ago about the time her ). I advised her to use it now while on the antibiotic and to follow up with her PCP to discuss long-term use. Patient discharged to home in stable condition. Departure - Departure Time of Disposition: 16:30 Disposition: Home, Self-Care 01 Condition: Good Clinical Impression: Ureteral calculus, left, Bilateral nephrolithiasis, Mass of urinary bladder determined by ultrasound - Discharge Information Instructions: Kidney Stones, [id number] Referrals: Mary Steel MD [Primary Care Provider] - Forms: ED Department Discharge Additional Instructions: Continue your Cipro antibiotic and Omperazole as directed. Take the Ketorolac as directed for pain control as needed. Continue to drink at least 8 cups of water daily. Follow up with the urologist as scheduled next week for the cystoscopy. Sepsis Event Note (ED) - Evaluation Sepsis Screening Result: No Definite Risk - Focused Exam Vital Signs: Vital Signs Temp Pulse Resp BP Pulse Ox 02/21/20 15:20 97.8 F 93 16 149/83 H 98 - My Orders Last 24 Hours: My Active Orders 02/21/20 15:34 Peripheral IV Insertion Adult [OM.PC] Routine 02/21/20 15:40 CULTURE URINE [RM] Stat - Assessment/Plan Last 24 Hours: My Active Orders 02/21/20 15:34 Peripheral IV Insertion Adult [OM.PC] Routine 02/21/20 15:40 CULTURE URINE [RM] Stat
== END 2020-02-21 16:45 | disposition home or self-care (01) ==
LOC: KA.ED 15:14
DX: N20.2 Calculus of kidney with calculus of ureter (principal); N32.89 Other specified disorders of bladder; I10 Essential (primary) hypertension; K21.9 Gastro-esophageal reflux disease without esophagitis; Z79.899 Other long term (current) drug therapy
CPT/HCPCS: 36415; 80053; 81001; 83690; 85025; 87086; 87088; 87186; 99284

== ENCOUNTER 2020-10-03 15:00 | Emergency (ER) | payer MEDICARE, BC ==
[2020-10-03 15:11] VITALS: BP 156/73; PULSE 91
[2020-10-03] MEDS: Sodium Chloride 0.9% 1,000 ML IV ONE (15:27)
--- NOTE | 2020-10-03 15:38 | EDM.PDOC ---
ED HPI GENERAL MEDICAL PROBLEM - General Chief Complaint: Genitourinary Problem Stated Complaint: SUPRAPUBIC PAIN Time Seen by Provider: 10/03/20 15:10 Source of Information: Reports: Patient History Limitations: Reports: No Limitations - History of Present Illness INITIAL COMMENTS - FREE TEXT/NARRATIVE: 80 YO WF PRESENTS TO ER COMPLAINING OF 1 DAY OF LOWER ABDOMINAL PAIN WITH ASSOCIATED DYSURIA AND URINARY FREQUENCY. PT WAS SEEN IN [facility] 2 DAYS AGO AND DIAGNOSED WITH VULVOVAGINITIS AND TREATED FOR YEAST INFECTION. PT REPORTS SHE WOKE TODAY FEELING LIKE SHE WAS PASSING A KIDNEY STONE. PT WAS SEEN IN [facility] TODAY AND HAD UA SENT BUT CONTINUED TO FEEL INCREASED PRESSURE AND DISCOMFORT PROMPTING ER EVALUATION. PT DENIES FEVER/CHILLS, NO BACK PAIN, NO NAUSEA/VOMITING. PT HAVING MILD DISCOMFORT CURRENTLY, BUT STATES IT COMES AND GOES. Onset: Today Location: Reports: Abdomen Quality: Reports: Pressure Severity: Mild Improves with: Reports: None Worsens with: Reports: None Associated Symptoms: Reports: No Other Symptoms. 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 abdomen Pain Score (Numeric/FACES): 9 - Related Data Allergies Allergy/AdvReac Type Severity Reaction Status Date / Time No Known Drug Allergies Allergy NKDA Verified 10/03/20 15:11 Home Meds: Home Meds Lisinopril [Prinivil] 20 mg PO DAILY 02/06/17 [History] Omeprazole 20 mg PO DAILY 08/28/17 [History] Acetaminophen 650 mg PO Q6H PRN 02/07/20 [History] Ketorolac [Toradol] 10 mg PO TID PRN 5 Days #15 tab 02/07/20 [Rx] Vitamin B Complex 1 cap PO DAILY 02/07/20 [History] Vitamin E (Dl,Tocopheryl Acet) [Vitamin E] 1,000 unit PO DAILY 02/07/20 [History] Calcium Carbonate/Vitamin D3 [Calcium 500 mg-Vit D3 600 Unit] 1 each PO DAILY 02/21/20 [History] Ciprofloxacin HCl [Cipro] 500 mg PO BID #14 tablet 10/03/20 [Rx] Phenazopyridine HCl [Pyridium] 200 mg PO TID #6 tablet 10/03/20 [Rx] Past Medical History HEENT History: Reports: Cataract Cardiovascular History: Reports: Hypertension Respiratory History: Reports: None Gastrointestinal History: Reports: Cholelithiasis, GERD, Pancreatitis Genitourinary History: Reports: Renal Calculus, UTI, Recurrent INSPECTOR PLATING History: Reports: , Other (See Below) Other INSPECTOR PLATING History: 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 Musculoskeletal History: Reports: None Neurological History: Reports: None Psychiatric History: Reports: None, Anxiety Endocrine/Metabolic History: Reports: None Hematologic History: Reports: None Immunologic History: Reports: None Oncologic (Cancer) History: Reports: Bladder Dermatologic History: Reports: None - Infectious Disease History Infectious Disease History: Reports: Chicken Pox, Measles, Mumps, Rubella - Past Surgical History Head Surgeries/Procedures: Reports: None HEENT Surgical History: Reports: Cataract Surgery, LASIK Cardiovascular Surgical History: Reports: None GI Surgical History: Reports: Appendectomy, Cholecystectomy, Colonoscopy, EGD, ERCP Female Surgical History: Reports: Hysterectomy, Salpingo-Oophorectomy Endocrine Surgical History: Reports: Parathyroidectomy Neurological Surgical History: Reports: None Oncologic Surgical History: Reports: None - Past Imaging History Past Imaging History: Reports: CAT Scan, Xray Social & Family History - Family History Family Medical History: No Pertinent Family History - Caffeine Use Caffeine Use: Reports: Coffee ED ROS GENERAL - Review of Systems Review Of Systems: See Below Constitutional: Reports: No Symptoms HEENT: Reports: No Symptoms Respiratory: Reports: No Symptoms Cardiovascular: Reports: No Symptoms Endocrine: Reports: No Symptoms GI/Abdominal: Reports: Abdominal Pain : Reports: Dysuria, Frequency, Urgency Musculoskeletal: Reports: No Symptoms Skin: Reports: No Symptoms Neurological: Reports: No Symptoms Psychiatric: Reports: No Symptoms Hematologic/Lymphatic: Reports: No Symptoms Immunologic: Reports: No Symptoms ED EXAM, RENAL/ - Physical Exam Exam: See Below Exam Limited By: No Limitations General Appearance: Alert, WD/WN, No Apparent Distress Head: Atraumatic, Normocephalic Neck: Normal Inspection, Supple, Non-Tender, Full Range of Motion Respiratory/Chest: No Respiratory Distress, Lungs Clear, Normal Breath Sounds, No Accessory Muscle Use, Chest Non-Tender Cardiovascular: Normal Peripheral Pulses, Regular Rate, Rhythm, No Edema, No Gallop, No JVD, No Murmur, No Rub GI/Abdominal: Normal Bowel Sounds, Soft, No Organomegaly, No Distention, No Abnormal Bruit, No Mass, Tender (SUPRAPUBIC) Back Exam: Normal Inspection, Full Range of Motion. No: CVA Tenderness (L), CVA Tenderness (R) Extremities: Normal Inspection, Normal Range of Motion, Non-Tender, Normal Capillary Refill, No Pedal Edema Neurological: Alert, Oriented, CN II-XII Intact, Normal Cognition, Normal Gait, Normal Reflexes, No Motor/Sensory Deficits Course - Vital Signs Last Recorded V/S: Last Vital Signs Temp 97 F 10/03/20 15:33 Pulse 91 10/03/20 15:33 Resp 20 10/03/20 15:33 BP 156/73 H 10/03/20 15:33 Pulse Ox 97 10/03/20 15:33 - Orders/Labs/Meds Orders: Active Orders 24 hr Category Date Time Status Abdomen Pelvis wo Cont [CT] Stat Exams 10/03/20 15:14 Stop Req Sodium Chloride 0.9% [Normal Saline] 1,000 ml Med 10/03/20 15:13 Active IV .BOLUS Medication Orders Sodium Chloride (Normal Saline) 1,000 mls @ 999 mls/hr IV .BOLUS ONE Stop: 10/03/20 16:13 Last Admin: 10/03/20 15:27 Dose: 999 mls/hr Documented by: SHANA Labs: Laboratory Tests 10/03/20 10/03/20 Range/Units 15:20 15:20 WBC 9.24 (5.00-10.00) 10^3/uL RBC 4.55 (3.80-5.50) 10^6/uL Hgb 13.5 (12.0-16.0) g/dL Hct 41.2 (37.0-47.0) % MCV 90.5 (82.0-92.0) fL MCH 29.7 (27.0-31.0) pg MCHC 32.8 (32.0-36.0) g/dL RDW 13.7 (11.5-14.5) % Plt Count 263 (150-400) 10^3/uL MPV 9.5 (7.4-10.4) fL Immature Gran % (Auto) 0.2 (0.0-5.0) % Neut % (Auto) 65.9 (50.0-70.0) % Lymph % (Auto) 29.0 (20.0-40.0) % [place] % (Auto) 4.1 (2.0-8.0) % Eos % (Auto) 0.4 L (1.0-3.0) % Baso % (Auto) 0.4 (0.0-1.0) % Neut # (Auto) 6.08 (2.50-7.00) 10^3/uL Lymph # (Auto) 2.68 (1.00-4.00) 10^3/uL [place] # (Auto) 0.38 (0.10-0.80) 10^3/uL Eos # (Auto) 0.04 L (0.10-0.30) 10^3/uL Baso # (Auto) 0.04 (0.00-0.10) 10^3/uL Immature Gran # (Auto) 0.02 (0.00-0.50) 10^3/uL Sodium 139 (136-145) mmol/L Potassium 4.1 (3.5-5.1) mmol/L Chloride 102 (98-107) mmol/L Carbon Dioxide 25.5 (21.0-32.0) mmol/L Anion Gap 15.6 H (5-15) mmol/L BUN 16 (7-18) mg/dL Creatinine 0.92 (0.51-1.17) mg/dL Est Cr Clr Drug Dosing 40.71 mL/min Estimated GFR (MDRD) 58 mL/min Glucose 99 (70-140) mg/dL Calcium 8.6 L (8.7-10.3) mg/dL Meds: Medications Generic Name Dose Route Start Last Admin Trade Name Pau PRN Reason Stop Dose Admin Sodium Chloride 1,000 mls @ 999 mls/hr 10/03/20 15:13 10/03/20 15:27 Normal Saline IV 10/03/20 16:13 999 mls/hr .BOLUS ONE Administration Discontinued Medications Generic Name Dose Route Start Last Admin Trade Name Freq PRN Reason Stop Dose Admin Ciprofloxacin 500 mg 10/03/20 15:28 10/03/20 15:41 Ciprofloxacin 500 Mg Tab PO 10/03/20 15:29 500 mg ONETIME ONE Administration Ketorolac Tromethamine 30 mg 10/03/20 15:28 10/03/20 15:42 Ketorolac 30 Mg/Ml Sdv IVPUSH 10/03/20 15:29 30 mg ONETIME ONE Administration Phenazopyridine HCl 200 mg 10/03/20 15:28 10/03/20 15:42 Phenazopyridine 100 Mg Tab PO 10/03/20 15:29 200 mg BID ONE Administration Departure - Departure Time of Disposition: 15:51 Disposition: Home, Self-Care 01 Condition: Good Clinical Impression: UTI, Urinary tract infectious disease - Discharge Information Prescriptions: Ciprofloxacin HCl [Cipro] 500 mg PO BID #14 tablet Phenazopyridine HCl [Pyridium] 200 mg PO TID #6 tablet Instructions: Urinary Tract Infection, Adult, [id number] Referrals: Mary Steel MD [Primary Care Provider] - Forms: ED Department Discharge Additional Instructions: 1. DISCHARGE HOME 2. CIPRO 500MG TWICE/DAY X 7 DAYS 3. PYRIDIUM 200MG 3X/DAY X 2 DAYS 4. FOLLOW UP IN CLINIC IF NO IMPROVEMENT NEXT 48 HOURS 5. RETURN TO ER FOR WORSENING SYMPTOMS Sepsis Event Note (ED) - Evaluation Sepsis Screening Result: No Definite Risk - Focused Exam Vital Signs: Vital Signs Temp Pulse Resp BP Pulse Ox 10/03/20 15:33 97 F 91 20 156/73 H 97 10/03/20 15:07 97 F 91 20 156/73 H 97 - My Orders Last 24 Hours: My Active Orders 10/03/20 15:13 Sodium Chloride 0.9% [Normal Saline] 1,000 ml IV .BOLUS 10/03/20 15:14 Abdomen Pelvis wo Cont [CT] Stat - Assessment/Plan Last 24 Hours: My Active Orders 10/03/20 15:13 Sodium Chloride 0.9% [Normal Saline] 1,000 ml IV .BOLUS 10/03/20 15:14 Abdomen Pelvis wo Cont [CT] Stat Assessment:: 1. URINARY TRACT INFECTION Plan: 1. DISCHARGE HOME 2. CIPRO 500MG TWICE/DAY X 7 DAYS 3. PYRIDIUM 200MG 3X/DAY X 2 DAYS 4. FOLLOW UP IN CLINIC IF NO IMPROVEMENT NEXT 48 HOURS 5. RETURN TO ER FOR WORSENING SYMPTOMS
[2020-10-03] MEDS: Ciprofloxacin 500 MG Tab PO ONE (15:41)
[2020-10-03] MEDS: Phenazopyridine 100 MG Tab PO ONE (15:42)
[2020-10-03] MEDS: Ketorolac 30 MG/ML SDV IVPUSH ONE (15:42)
[2020-10-03 15:49] LABS: ANION GAP 15.6 mmol/L (5-15)
== END 2020-10-03 16:05 | disposition home or self-care (01) ==
LOC: KA.ED 15:00
DX: N39.0 Urinary tract infection, site not specified (principal); K21.9 Gastro-esophageal reflux disease without esophagitis; I10 Essential (primary) hypertension; Z79.899 Other long term (current) drug therapy; R30.0 Dysuria
CPT/HCPCS: 36415; 80048; 81001; 85025; 87086; 87088; 87186; 96374; 99283; 99284-25; A9270-GY; J1885; J7030

== ENCOUNTER 2020-10-04 11:38 | Emergency (ER) | payer MEDICARE, BC ==
[2020-10-04 11:50] VITALS: BP 163/84; PULSE 89
--- NOTE | 2020-10-04 12:19 | EDM.PDOC ---
ED HPI GENERAL MEDICAL PROBLEM - General Chief Complaint: General Stated Complaint: NAUSEA Time Seen by Provider: 10/04/20 12:00 Source of Information: Reports: Patient History Limitations: Reports: No Limitations - History of Present Illness INITIAL COMMENTS - FREE TEXT/NARRATIVE: 80 YO WF PRESENTS TO ER WITH COMPLAINTS OF NAUSEA WITHOUT VOMITING WHICH BEGAN THIS AM. PT WAS TREATED YESTERDAY FOR A UTI AND GIVEN CIPRO 500MG WELL PYRIDIUM FOR HER DISCOMFORT. PT WAS EVALUATED AT THAT TIME AND HAD BLOOD WORK WELL IVF. THERE WAS NO EVIDENCE OF PYELONEPHRITIS AT THAT TIME- NO ELEVATED WBC'S NO FEVER, NO FLANK PAIN. PT APPEARS ANXIOUS AND CONCERNED BECAUSE SHE HAS NO ONE TO TAKE CARE OF HER AT HOME. Duration: Day(s): (2) Severity: Mild Improves with: Reports: None Worsens with: Reports: None Associated Symptoms: Reports: Nausea/Vomiting, Weakness. Denies: Fever/Chills - Related Data Allergies Allergy/AdvReac Type Severity Reaction Status Date / Time No Known Drug Allergies Allergy NKDA Verified 10/04/20 11:50 Home Meds: Home Meds Lisinopril [Prinivil] 20 mg PO DAILY 02/06/17 [History] Omeprazole 20 mg PO DAILY 08/28/17 [History] Acetaminophen 650 mg PO Q6H PRN 02/07/20 [History] Ketorolac [Toradol] 10 mg PO TID PRN 5 Days #15 tab 02/07/20 [Rx] Vitamin B Complex 1 cap PO DAILY 02/07/20 [History] Vitamin E (Dl,Tocopheryl Acet) [Vitamin E] 1,000 unit PO DAILY 02/07/20 [History] Calcium Carbonate/Vitamin D3 [Calcium 500 mg-Vit D3 600 Unit] 1 each PO DAILY 02/21/20 [History] Ciprofloxacin HCl [Cipro] 500 mg PO BID #14 tablet 10/03/20 [Rx] Phenazopyridine HCl [Pyridium] 200 mg PO TID #6 tablet 10/03/20 [Rx] Ondansetron [Zofran ODT] 4 mg PO Q6H PRN #6 tab.dis 10/04/20 [Rx] Past Medical History HEENT History: Reports: Cataract Cardiovascular History: Reports: Hypertension Respiratory History: Reports: None Gastrointestinal History: Reports: Cholelithiasis, GERD, Pancreatitis Genitourinary History: Reports: Renal Calculus, UTI, Recurrent 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: Reports: , Other (See Below) Other 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: 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 Musculoskeletal History: Reports: None Neurological History: Reports: None Psychiatric History: Reports: None, Anxiety Endocrine/Metabolic History: Reports: None Hematologic History: Reports: None Immunologic History: Reports: None Oncologic (Cancer) History: Reports: Bladder Dermatologic History: Reports: None - Infectious Disease History Infectious Disease History: Reports: Chicken Pox, Measles, Mumps, Rubella - Past Surgical History Head Surgeries/Procedures: Reports: None HEENT Surgical History: Reports: Cataract Surgery, LASIK Cardiovascular Surgical History: Reports: None GI Surgical History: Reports: Appendectomy, Cholecystectomy, Colonoscopy, EGD, ERCP Female Surgical History: Reports: Hysterectomy, Salpingo-Oophorectomy Endocrine Surgical History: Reports: Parathyroidectomy Neurological Surgical History: Reports: None Oncologic Surgical History: Reports: None - Past Imaging History Past Imaging History: Reports: CAT Scan, Xray Social & Family History - Family History Family Medical History: No Pertinent Family History - Tobacco Use Tobacco Use Status *Q: Current Some Day Tobacco User Years of Tobacco use: 4 Packs/Tins Daily: 0.1 - Caffeine Use Caffeine Use: Reports: Coffee, Tea - Recreational Drug Use Recreational Drug Use: No ED ROS GENERAL - Review of Systems Review Of Systems: See Below Constitutional: Reports: No Symptoms HEENT: Reports: No Symptoms Respiratory: Reports: No Symptoms Cardiovascular: Reports: No Symptoms Endocrine: Reports: No Symptoms GI/Abdominal: Reports: No Symptoms : Reports: Dysuria Musculoskeletal: Reports: No Symptoms Skin: Reports: No Symptoms Neurological: Reports: No Symptoms Psychiatric: Reports: No Symptoms Hematologic/Lymphatic: Reports: No Symptoms Immunologic: Reports: No Symptoms ED EXAM, GENERAL - Physical Exam Exam: See Below Exam Limited By: No Limitations General Appearance: Alert, WD/WN, No Apparent Distress Head: Atraumatic, Normocephalic Neck: Normal Inspection, Supple, Non-Tender, Full Range of Motion Respiratory/Chest: No Respiratory Distress, Lungs Clear, Normal Breath Sounds, No Accessory Muscle Use, Chest Non-Tender Cardiovascular: Normal Peripheral Pulses, Regular Rate, Rhythm, No Edema, No Gallop, No JVD, No Murmur, No Rub GI/Abdominal: Normal Bowel Sounds, Soft, Non-Tender, No Organomegaly, No Distention, No Abnormal Bruit, No Mass Back Exam: Normal Inspection, Full Range of Motion, NT Extremities: Normal Inspection, Normal Range of Motion, Non-Tender, Normal Capillary Refill, No Pedal Edema Neurological: Alert, Oriented, CN II-XII Intact, Normal Cognition, Normal Gait, Normal Reflexes, No Motor/Sensory Deficits Psychiatric: Normal Affect, Normal Mood Skin Exam: Warm, Dry, Intact, Normal Color, No Rash Lymphatic: No Adenopathy Course - Vital Signs Last Recorded V/S: Last Vital Signs Temp 97.3 F 10/04/20 12:04 Pulse 89 10/04/20 12:04 Resp 18 10/04/20 12:04 BP 163/84 H 10/04/20 12:04 Pulse Ox 98 10/04/20 12:04 - Orders/Labs/Meds Orders: Active Orders 24 hr Category Date Time Status Ketorolac [Toradol] Med 10/04/20 12:30 Once 60 mg IM ONETIME ONE Ondansetron [Zofran ODT] Med 10/04/20 12:30 Once 4 mg PO ONETIME ONE Departure - Departure Time of Disposition: 12:38 Disposition: Home, Self-Care 01 Condition: Fair Clinical Impression: Nausea Urinary tract infection Qualifiers: Urinary tract infection type: acute cystitis Hematuria presence: with hematuria Qualified Code(s): N30.01 - Acute cystitis with hematuria - Discharge Information Prescriptions: Ondansetron [Zofran ODT] 4 mg PO Q6H PRN #6 tab.dis PRN Reason: Nausea Instructions: Nausea, Adult [place]errals: [place] [Primary Care Provider] - Forms: ED Department Discharge Additional Instructions: 1. DISCHARGE HOME 2. DISCUSSED NEED TO WAIT AN ADDITIONAL 24-48 HOURS FOR ANTIBIOTICS TO IMPROVE SYMPTOMS. IF NO IMPROVEMENT NEXT 48 HOURS, PT WAS INSTRUCTED TO FOLLOW UP IN CLINIC OR RETURN TO ER. 3. ZOFRAN 4MG ODT #6 TAKE ONE SL EVERY 6 HOURS NEEDED FOR NAUSEA Sepsis Event Note (ED) - Evaluation Sepsis Screening Result: No Definite Risk - Focused Exam Vital Signs: Vital Signs Temp Pulse Resp BP Pulse Ox 10/04/20 12:04 97.3 F 89 18 163/84 H 98 10/04/20 11:45 97.3 F 89 18 163/84 H 98 - My Orders Last 24 Hours: My Active Orders 10/04/20 12:30 Ketorolac [Toradol] 60 mg IM ONETIME ONE Ondansetron [Zofran ODT] 4 mg PO ONETIME ONE - Assessment/Plan Last 24 Hours: My Active Orders 10/04/20 12:30 Ketorolac [Toradol] 60 mg IM ONETIME ONE Ondansetron [Zofran ODT] 4 mg PO ONETIME ONE Assessment:: 1. URINARY TRACT INFECTION 2. NAUSEA WITHOUT VOMITING Plan: 1. DISCHARGE HOME 2. DISCUSSED NEED TO WAIT AN ADDITIONAL 24-48 HOURS FOR ANTIBIOTICS TO IMPROVE SYMPTOMS. IF NO IMPROVEMENT NEXT 48 HOURS, PT WAS INSTRUCTED TO FOLLOW UP IN CLINIC OR RETURN TO ER. 3. ZOFRAN 4MG ODT #6 TAKE ONE SL EVERY 6 HOURS NEEDED FOR NAUSEA
[2020-10-04] MEDS ORDERED: Ketorolac 60 MG/2 ML SDV IM ONE (12:30)
[2020-10-04] MEDS ORDERED: Ondansetron 4 MG Tab.DIS PO ONE (12:30)
== END 2020-10-04 12:50 | disposition home or self-care (01) ==
LOC: KA.ED 11:38
DX: N30.01 Acute cystitis with hematuria (principal); R11.0 Nausea; I10 Essential (primary) hypertension; Z79.899 Other long term (current) drug therapy; Z72.0 Tobacco use
CPT/HCPCS: 96372; 99283; 99284; A9270-GY; J1885

== ENCOUNTER 2020-10-25 16:18 | Emergency (ER) | payer MEDICARE, BC ==
--- NOTE | 2020-10-25 17:27 | EDM.PDOC ---
ED HPI GENERAL MEDICAL PROBLEM - General Chief Complaint: General Stated Complaint: STOMACH ISSUES Time Seen by Provider: 10/25/20 16:25 Source of Information: Reports: Patient History Limitations: Reports: No Limitations - History of Present Illness INITIAL COMMENTS - FREE TEXT/NARRATIVE: 80-year-old female presents emergency room with complaints of some mild lower abdominal pain. This is a frequent problem for her. She states that she suffers bouts of constipation and diarrhea. Symptoms began yesterday. She reports she has had 2 loose stools in the last 48 hours. She she feels some distention. She is not having current dysuria although was treated for a yeast infection and worked up for UTI about 10 days ago. She does report that she drinks plenty of water throughout the day tries eat a very well-balanced diet. She denies significant flatus or discomfort with gas. No nausea or vomiting. No respiratory complaints. She has had a prior cholecystectomy in the past. She has history of a kidney stones as well but is not having any flank pain. She is not been diaphoretic. Onset: Gradual Onset Date: 10/24/20 Duration: Day(s):, Recurring Location: Reports: Abdomen Quality: Reports: Ache Severity: Mild Improves with: Reports: None Worsens with: Reports: None Associated Symptoms: Reports: No Other Symptoms. Denies: Fever/Chills, Nausea/Vomiting, Shortness of Breath, Weakness Abdomen Pain Score (Numeric/FACES): 6 - Related Data Allergies Allergy/AdvReac Type Severity Reaction Status Date / Time No Known Drug Allergies Allergy NKDA Verified 10/04/20 11:50 Home Meds: Home Meds Lisinopril [Prinivil] 20 mg PO DAILY 02/06/17 [History] Acetaminophen 650 mg PO Q6H PRN 02/07/20 [History] Vitamin B Complex 1 cap PO DAILY 02/07/20 [History] Vitamin E (Dl,Tocopheryl Acet) [Vitamin E] 1,000 unit PO DAILY 02/07/20 [History] Calcium Carbonate/Vitamin D3 [Calcium 500 mg-Vit D3 600 Unit] 1 each PO DAILY 02/21/20 [History] Past Medical History HEENT History: Reports: Cataract Cardiovascular History: Reports: Hypertension Respiratory History: Reports: None Gastrointestinal History: Reports: Cholelithiasis, GERD, Pancreatitis Genitourinary History: Reports: Renal Calculus, UTI, Recurrent 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: , Other (See Below) Other MACHINE FILLER SHREDDER History: 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 Musculoskeletal History: Reports: None Neurological History: Reports: None Psychiatric History: Reports: None, Anxiety Endocrine/Metabolic History: Reports: None Hematologic History: Reports: None Immunologic History: Reports: None Oncologic (Cancer) History: Reports: Bladder Dermatologic History: Reports: None - Infectious Disease History Infectious Disease History: Reports: Chicken Pox, Measles, Mumps, Rubella - Past Surgical History Head Surgeries/Procedures: Reports: None HEENT Surgical History: Reports: Cataract Surgery, LASIK Cardiovascular Surgical History: Reports: None GI Surgical History: Reports: Appendectomy, Cholecystectomy, Colonoscopy, EGD, ERCP Female Surgical History: Reports: Hysterectomy, Salpingo-Oophorectomy Endocrine Surgical History: Reports: Parathyroidectomy Neurological Surgical History: Reports: None Oncologic Surgical History: Reports: None - Past Imaging History Past Imaging History: Reports: CAT Scan, Xray Social & Family History - Family History Family Medical History: No Pertinent Family History - Tobacco Use Tobacco Use Status *Q: Former Tobacco User Used Tobacco, but Quit: Yes Month/Year Tobacco Last Used: 02/2018 - Caffeine Use Caffeine Use: Reports: Coffee - Recreational Drug Use Recreational Drug Use: No ED ROS GENERAL - Review of Systems Review Of Systems: See Below Constitutional: Denies: Fever, Chills, Diaphoresis HEENT: Reports: No Symptoms Respiratory: Denies: Shortness of Breath Cardiovascular: Denies: Chest Pain, Lightheadedness, Orthopnea, Palpitations, Syncope Endocrine: Denies: Fatigue GI/Abdominal: Reports: Abdominal Pain, Constipation, Diarrhea (this am, loose stool). Denies: Black Stool, Nausea, Stool Incontinence, Vomiting : Reports: No Symptoms Musculoskeletal: Denies: Back Pain Skin: Reports: No Symptoms Neurological: Reports: No Symptoms ED EXAM, GENERAL - Physical Exam Exam: See Below General Appearance: Alert, No Apparent Distress, Thin Eye Exam: Bilateral Eye: EOMI Ears: Hearing Grossly Normal Nose: Normal Inspection Throat/Mouth: Normal Inspection, Normal Voice, No Airway Compromise Head: Atraumatic, Normocephalic Neck: Normal Inspection, Supple, Non-Tender Respiratory/Chest: No Respiratory Distress, Lungs Clear, Normal Breath Sounds Cardiovascular: Regular Rate, Rhythm, No Murmur Peripheral Pulses: 2+: Carotid (L), Carotid (R) GI/Abdominal: Normal Bowel Sounds, Soft, Non-Tender, No Organomegaly, No Distention, No Abnormal Bruit, No Mass, Pelvis Stable. No: Guarding, Rigid, Rebound Back Exam: Normal Inspection, Full Range of Motion Extremities: Normal Inspection, Normal Range of Motion, Non-Tender, No Pedal Edema, Normal Capillary Refill Neurological: Alert, Oriented, Normal Cognition, Normal Gait, No Motor/Sensory Deficits Psychiatric: Normal Affect, Normal Mood Skin Exam: Warm, Dry, Intact, Normal Color, No Rash Lymphatic: No Adenopathy Course - Vital Signs Last Recorded V/S: Last Vital Signs Temp 97.8 F 10/25/20 16:24 Pulse 90 10/25/20 17:28 Resp 20 10/25/20 17:28 BP 122/64 10/25/20 17:28 Pulse Ox 98 10/25/20 17:28 - Orders/Labs/Meds Labs: Laboratory Tests 10/25/20 10/25/20 10/25/20 Range/Units 16:58 17:10 17:10 WBC 7.53 (5.00-10.00) 10^3/uL RBC 3.99 (3.80-5.50) 10^6/uL Hgb 12.2 (12.0-16.0) g/dL Hct 36.5 L (37.0-47.0) % MCV 91.5 (82.0-92.0) fL MCH 30.6 (27.0-31.0) pg MCHC 33.4 (32.0-36.0) g/dL RDW 14.1 (11.5-14.5) % Plt Count 219 (150-400) 10^3/uL MPV 9.2 (7.4-10.4) fL Immature Gran % (Auto) 0.1 (0.0-5.0) % Neut % (Auto) 58.4 (50.0-70.0) % Lymph % (Auto) 33.7 (20.0-40.0) % [place] % (Auto) 6.4 (2.0-8.0) % Eos % (Auto) 0.9 L (1.0-3.0) % Baso % (Auto) 0.5 (0.0-1.0) % Neut # (Auto) 4.39 (2.50-7.00) 10^3/uL Lymph # (Auto) 2.54 (1.00-4.00) 10^3/uL [place] # (Auto) 0.48 (0.10-0.80) 10^3/uL Eos # (Auto) 0.07 L (0.10-0.30) 10^3/uL Baso # (Auto) 0.04 (0.00-0.10) 10^3/uL Immature Gran # (Auto) 0.01 (0.00-0.50) 10^3/uL Sodium 141 (136-145) mmol/L Potassium 4.1 (3.5-5.1) mmol/L Chloride 103 (98-107) mmol/L Carbon Dioxide 26.1 (21.0-32.0) mmol/L Anion Gap 16.0 H (5-15) mmol/L BUN 17 (7-18) mg/dL Creatinine 0.90 (0.51-1.17) mg/dL Est Cr Clr Drug Dosing 41.62 mL/min Estimated GFR (MDRD) 60 mL/min Glucose 75 (70-140) mg/dL Calcium 8.7 (8.7-10.3) mg/dL Total Bilirubin 0.3 (0.2-1.0) mg/dL AST 18 (15-37) U/L ALT 21 (14-63) U/L Alkaline Phosphatase 55 (46-116) U/L Total Protein 6.3 L (6.4-8.2) g/dL Albumin 3.47 (3.40-5.00) g/dL Specimen Type Urincc Urine Color Yellow (YELLOW) Urine Appearance Clear (CLEAR) Urine pH 6.0 (5.0-9.0) Ur Specific [place] 1.010 (1.005-1.030) Urine Protein Negative (NEGATIVE) mg/dL Urine Glucose (UA) Negative (NEGATIVE) mg/dL Urine Ketones Negative (NEGATIVE) mg/dL Urine Occult Blood Negative (NEGATIVE) Urine Nitrite Negative (NEGATIVE) Urine Bilirubin Negative (NEGATIVE) Urine Urobilinogen 0.2 (0.2-1.0) E.U./dL Ur Leukocyte Esterase Trace H (NEGATIVE) Urine RBC 0-5 (0-5) /HPF Urine WBC 0-5 (0-5) /HPF Ur Epithelial Cells Few /LPF Urine Bacteria Few (NONE TO FEW) /HPF Meds: Medications Discontinued Medications Generic Name Dose Route Start Last Admin Trade Name Pau PRN Reason Stop Dose Admin Bisacodyl 10 mg 10/25/20 17:38 10/25/20 17:48 Bisacodyl 10 Mg Supp RECTAL 10/25/20 17:39 10 mg ONETIME ONE Administration Magnesium Citrate 1 ml 10/25/20 18:09 Magnesium Citrate Solution 296 Ml Bottle PO 10/25/20 18:10 ONETIME ONE - Radiology Interpretation Free Text/Narrative:: Abdomen upright x-ray Correlation is made with CAT scan of February 11, 2020 Findings: There is a history of kidney stones. The bowel gas pattern is unremarkable. There is no bowel obstruction or free air. There is no organomegaly seen. Impression No acute plain film abnormality - Re-Assessments/Exams Free Text/Narrative Re-Assessment/Exam: 10/25/20 18:03 Patient is felt better after urinated. She was given a Dulcolax suppository. Departure - Departure Time of Disposition: 18:12 Disposition: Home, Self-Care 01 Condition: Good Clinical Impression: Abdominal pain Qualifiers: Abdominal location: epigastric Qualified Code(s): R10.13 - Epigastric pain Constipation Qualifiers: Constipation type: unspecified constipation type Qualified Code(s): K59.00 - Constipation, unspecified - Discharge Information Instructions: Constipation, Adult, [id number], Abdominal Pain, Adult, [id number] Referrals: Mary Steel MD [Primary Care Provider] - Forms: ED Department Discharge Care Plan Goals: Mag citrate 1 bottle. Continue with oral hydration. Recommend daily fiber. Follow-up with your primary care next week if symptoms are not improving. Sepsis Event Note (ED) - Evaluation Sepsis Screening Result: No Definite Risk - Focused Exam Vital Signs: Vital Signs Temp Pulse Resp BP Pulse Ox 10/25/20 17:28 90 20 122/64 98 10/25/20 16:56 91 20 131/75 97 10/25/20 16:24 97.8 F 92 20 145/74 H 98 - Assessment/Plan Assessment:: Abdominal pain Constipation Plan: Patient already feels less bloated with going to the bathroom. Organ to send he r home with magnesium citrate she will drink this this may help clean out her bowels completely. I would recommend that she stop taking the MiraLAX at this time. Mag citrate 1 bottle. Continue with oral hydration. Recommend daily fiber. Follow-up with your primary care next week if symptoms are not improving.
[2020-10-25 17:29] VITALS: BP 122/64; PULSE 90
--- NOTE | 2020-10-25 17:35 | CR ---
[id number] RAD/RAD Abdomen Upright Exam: RAD Abdomen Upright Clinical Data: ABDOMINAL PAIN COMPARISON: CORRELATION IS MADE WITH THE CAT SCAN OF FEBRUARY 11, 2020 FINDINGS: There is a history of kidney stones. The bowel gas pattern is unremarkable There is no bowel obstruction or free air. There is no organomegaly seen. IMPRESSION: NO ACUTE PLAIN FILM ABNORMALITY Gerardo Rincon MD 10/25/20 [id number] Thank you for allowing us to participate in the care of your patient.
[2020-10-25] MEDS ORDERED: Bisacodyl 10 MG Supp RECTAL ONE (17:38)
[2020-10-25] MEDS ORDERED: Magnesium Citrate Solution 296 ML Bottle PO ONE ×2 (18:09→18:16)
== END 2020-10-25 18:19 | disposition home or self-care (01) ==
LOC: KA.ED 16:18
DX: K59.00 Constipation, unspecified (principal); I10 Essential (primary) hypertension; Z79.899 Other long term (current) drug therapy; Z87.891 Personal history of nicotine dependence
CPT/HCPCS: 36415; 74018; 80053; 81001; 85025; 99284; 99284-25; A9270-GY

== ENCOUNTER 2020-11-06 10:24 | Day surgery (SDC) | payer MEDICARE, BC ==
[2020-11-06] MEDS ORDERED: Lactated Ringers 1,000 ML IV SCH (10:30)
[2020-11-06] MEDS ORDERED: Sodium Chloride 0.9% 10 ML Syringe FLUSH PRN (10:30)
[2020-11-06] MEDS ORDERED: Propofol 200 MG/20 ML SDV ONE (11:46)
--- NOTE | 2020-11-06 12:13 | PCM.OPNOTE ---
- General Post-Op/Procedure Note Date of Surgery/Procedure: 11/06/20 Operative Procedure(s): Colonoscopy Anesthesia Technique: MAC Primary Surgeon: Ruben Rodrigues Condition: Good Free Text/Narrative:: INFORMED CONSENT: Patient is here today for elective colonoscopy. All aspects of this procedure have been discussed with the patient. All possible complications also, including possibility of perforation, infection, pain, bleeding and unknown complications. In the event of perforation patient may need to have abdominal exploration, colon resection, colostomy and even was discussed. Anesthetic complications were handled by anesthesia department. The patient understands fully well. Patient did not have any further questions for me at the end of my interview. The patient wishes for me to proceed. PREOPERATIVE DIAGNOSIS/INDICATIONS: Habitual constipation and alteration of bowel habits [] POSTOPERATIVE DIAGNOSIS: [Normal colonoscopy except for few diverticuli at the sigmoid colon] INSTRUMENT USED: [employer] videocolonoscope. ASA CLASSIFICATION: [2] ANESTHESIA: Continuous EKG, oximetry and intermittent blood pressure and respiratory monitoring were performed throughout the procedure. IV Versed and Fentanyl were administered. PROCEDURE PERFORMED: Colonoscopy POSITIONS OF PATIENT: Left lateral. RECTUM: Normal. SIGMOID COLON: Normal. DESCENDING COLON: A few diverticuli were seen.. SPLENIC FLEXURE: Normal. TRANSVERSE COLON: Normal. HEPATIC FLEXURE: Normal. ASCENDING COLON: Normal. CECUM: Normal. ILEOCECAL VALVE: Normal. BIOPSY: None. TOLERANCE: Excellent. COMPLICATIONS: None.
[2020-11-06 13:29] VITALS: BP 121/66; PULSE 64
== END 2020-11-06 13:20 | disposition home or self-care (01) ==
LOC: KA.SDS 10:24
PROVIDERS: ATTEND Family Medicine
DX: K57.30 Diverticulosis of large intestine without perforation or abscess without bleeding (principal); M81.0 Age-related osteoporosis without current pathological fracture; I10 Essential (primary) hypertension; Z79.899 Other long term (current) drug therapy
CPT/HCPCS: 00812; J2704; J7120

== ENCOUNTER 2020-11-11 07:50 | Day surgery (SDC) | payer MEDICARE, BC ==
[2020-11-11] MEDS ORDERED: Sodium Chloride 0.9% 10 ML Syringe FLUSH PRN (08:00)
[2020-11-11] MEDS: Lactated Ringers 1,000 ML IV SCH (08:32)
[2020-11-11] MEDS ORDERED: Propofol 200 MG/20 ML SDV ONE (09:19)
[2020-11-11] MEDS ORDERED: Midazolam 1 MG/ML 2 ML SDV ONE (09:19)
[2020-11-11] MEDS ORDERED: Lidocaine 2% 5 ML SDV ONE (09:19)
[2020-11-11] MEDS ORDERED: EPINEPHrine 1:10,000 1 MG/10 ML Syringe ONE (09:57)
--- NOTE | 2020-11-11 10:11 | PCM.OPNOTE ---
- General Post-Op/Procedure Note Date of Surgery/Procedure: 11/11/20 Operative Procedure(s): Upper gastrointestinal endoscopy and biopsies. Findings: Normal upper gastrointestinal endoscopy except for small polyps along the greater curvature. Pre Op Diagnosis: Persistent abdominal pain, bloating dyspepsia. Post-Op Diagnosis: Normal gastroscopy except for small polyp along the greater curvature. Helicobacter pylori test is pending. Anesthesia Technique: MAC Primary Surgeon: Ruben Rodrigues Complications: None Condition: Good Free Text/Narrative:: INFORMED CONSENT: Patient is here today for elective upper GI endoscopy. All aspects of this procedure have been discussed with the patient. All possible complications also, including possibility of perforation, infection, pain, bleeding, numbness of the throat, swallowing difficulty and unknown complications. In the event of perforation the patient may need surgical exploration to repair the defect. The patient understands fully well. Patient did not have any further questions for me at the end of my interview. The patient wishes for me to proceed. Indications: Persistent upper abdominal discomfort, bloating, gastric dyspepsia INSTRUMENT USED: Video gastroscope ANESTHESIA: MAC [] ASA CLASSIFICATION: [2] PROCEDURE PERFORMED: [Upper gastrointestinal endoscopy with biopsies.] PHARYNX: Normal. ESOPHAGUS: Normal. Proximal: Normal. Middle: Normal. Lower: Normal. GE Junction: Normal. STOMACH: Normal. Cardia: Normal. Fundus: Normal. Lesser Curvature: Normal. Greater Curvature: A couple of small polypoid structures were identified and biopsies were taken.. Antrum: Normal. Pylorus: Normal. DUODENUM: Normal. First Part: Normal. Second Part: Normal. Third Part: Normal. RETROFLEXION: Normal. BIOPSY: None. TOLERANCE: Excellent. COMPLICATIONS: None. Final diagnosis: A couple of small polypoid areas along the greater curvature. Otherwise negative. Biopsies pending. Helicobacter pylori is pending.
[2020-11-11 12:52] VITALS: BP 121/68; PULSE 76
== END 2020-11-11 11:55 | disposition home or self-care (01) ==
LOC: KA.SDS 07:50
PROVIDERS: ATTEND Family Medicine
DX: K31.7 Polyp of stomach and duodenum (principal); Z79.899 Other long term (current) drug therapy; I10 Essential (primary) hypertension; K21.9 Gastro-esophageal reflux disease without esophagitis
CPT/HCPCS: 00731; J2250; J2704; J7120

== ENCOUNTER 2021-03-08 15:30 | Emergency (ER) | payer MEDICARE, BC ==
[2021-03-08 15:34] VITALS: BP 173/81; PULSE 82
[2021-03-08] MEDS ORDERED: Phenazopyridine 100 MG Tab PO PRN (16:58)
[2021-03-08] MEDS: Phenazopyridine 100 MG Tab PO ONE (16:59)
[2021-03-08] MEDS: Sulfamethoxazole/Trimethoprim 800-160 MG Tab PO ONE (17:04)
== END 2021-03-08 17:15 | disposition home or self-care (01) ==
LOC: KA.ED 15:30
DX: N30.01 Acute cystitis with hematuria (principal); I10 Essential (primary) hypertension; K21.9 Gastro-esophageal reflux disease without esophagitis; Z79.82 Long term (current) use of aspirin; Z79.899 Other long term (current) drug therapy
CPT/HCPCS: 81001; 87086; 99284; 99284-25; A9270-GY

== ENCOUNTER 2021-09-23 15:23 | Emergency (ER) | payer MEDICARE, BC ==
[2021-09-23] MEDS ORDERED: Ondansetron 4 MG/2 ML SDV IVPUSH ONE (15:57)
[2021-09-23] MEDS ORDERED: Aluminum Hydroxide/Magnesium Hydroxide/Simethicone Susp 30 ML Cup PO ONE (16:12)
[2021-09-23] MEDS ORDERED: Aluminum Hydroxide/Magnesium Hydroxide/Simethicone Susp 30 ML Cup ONE (16:14)
[2021-09-23 16:19] LABS: ANION GAP 17.1 mmol/L (5-15); CHLORIDE,CL 102 mmol/L (98-107); SODIUM,NA 139 mmol/L (136-145)
[2021-09-23] MEDS ORDERED: Sodium Chloride 0.9% 10 ML Syringe FLUSH PRN (16:20)
[2021-09-23 16:21] VITALS: BP 163/86; PULSE 83
[2021-09-23 16:23] LABS: ESTIMATED GFR 61 mL/min (>=60)
== END 2021-09-23 17:20 | disposition home or self-care (01) ==
LOC: KA.ED 15:23
DX: N32.81 Overactive bladder (principal); R11.0 Nausea; I10 Essential (primary) hypertension; Z79.899 Other long term (current) drug therapy; Z79.82 Long term (current) use of aspirin; Z90.49 Acquired absence of other specified parts of digestive tract; Z90.710 Acquired absence of both cervix and uterus; Z20.822 Contact with and (suspected) exposure to COVID-19
CPT/HCPCS: 36415; 71046; 74018; 80053; 81001; 83690; 84484; 85025; 86140; 93005; 93010; 96374; 99284; 99284-25; A9270-GY; J2405; U0002

== ENCOUNTER 2021-09-27 15:40 | Emergency (ER) | payer MEDICARE, BC ==
[2021-09-27] MEDS: Ondansetron 4 MG/2 ML SDV IVPUSH ONE (16:02)
[2021-09-27] MEDS: LORazepam 2 MG/ML SDV IVPUSH PRN (16:02)
[2021-09-27] MEDS: Sodium Chloride 0.9% 10 ML Syringe FLUSH PRN (16:12)
[2021-09-27 16:29] LABS: ANION GAP 17.2 mmol/L (5-15); CHLORIDE,CL 103 mmol/L (98-107); SODIUM,NA 140 mmol/L (136-145)
[2021-09-27 16:30] LABS: ESTIMATED GFR 62 mL/min (>=60)
[2021-09-27] MEDS: Iopamidol 755 Mg/ML 75 ML Bottle IVPUSH ONE (17:46)
[2021-09-27] MEDS: Sodium Chloride 0.9% 50 ML IV SCH (17:47)
[2021-09-27 18:19] VITALS: BP 136/66; PULSE 66
== END 2021-09-27 18:40 | disposition home or self-care (01) ==
LOC: KA.ED 15:40
DX: N20.0 Calculus of kidney (principal); K58.9 Irritable bowel syndrome, unspecified; I10 Essential (primary) hypertension; Z79.899 Other long term (current) drug therapy; Z79.82 Long term (current) use of aspirin; Z90.49 Acquired absence of other specified parts of digestive tract; Z90.710 Acquired absence of both cervix and uterus
CPT/HCPCS: 36415; 74177; 80053; 81003; 82150; 83690; 84484; 85025; 96374; 96375; 99284-25; 99285; J2060; J2405; J3490; Q9967

== ENCOUNTER 2021-09-29 11:42 | Emergency (ER) | payer MEDICARE, BC ==
[2021-09-29] MEDS ORDERED: LORAZEPAM 2 MG/ML PO ONE (11:54)
[2021-09-29] MEDS ORDERED: Ondansetron 4 MG Tab.DIS PO ONE (11:54)
[2021-09-29] MEDS ORDERED: LORazepam 0.5 MG Tab PO ONE (12:03)
[2021-09-29] MEDS: LORazepam 0.5 MG Tab ONE ×2 (12:14→13:24)
[2021-09-29 12:20] LABS: CHLORIDE,CL 103 mmol/L (98-107); ESTIMATED GFR 57 mL/min (>=60); SODIUM,NA 139 mmol/L (136-145)
[2021-09-29 12:32] VITALS: BP 130/70; PULSE 84
== END 2021-09-29 13:40 | disposition home or self-care (01) ==
LOC: KA.ED 11:42
DX: K58.2 Mixed irritable bowel syndrome (principal); I10 Essential (primary) hypertension; Z79.899 Other long term (current) drug therapy; Z79.82 Long term (current) use of aspirin; Z90.49 Acquired absence of other specified parts of digestive tract; Z90.710 Acquired absence of both cervix and uterus
CPT/HCPCS: 36415; 74021; 80053; 82150; 83690; 85025; 99284; A9270-GY

== ENCOUNTER 2021-10-06 18:09 | Emergency (ER) | payer MEDICARE, BC ==
[2021-10-06 18:18] VITALS: BP 156/78; PULSE 92
[2021-10-06] MEDS: Sodium Chloride 0.9% 10 ML Syringe FLUSH PRN (18:22)
[2021-10-06] MEDS: Simethicone 80 MG Tab.Chew PO ONE (18:48)
[2021-10-06] MEDS: LORazepam 2 MG/ML SDV IVPUSH ONE ×2 (19:25→19:33)
== END 2021-10-06 19:35 | disposition home or self-care (01) ==
LOC: KA.ED 18:09
DX: R10.84 Generalized abdominal pain (principal); F41.9 Anxiety disorder, unspecified; I10 Essential (primary) hypertension; K21.9 Gastro-esophageal reflux disease without esophagitis; Z79.82 Long term (current) use of aspirin; Z79.899 Other long term (current) drug therapy
CPT/HCPCS: 36415; 80053; 81001; 83690; 85025; 96374; 99284; 99284-25; A9270-GY; J2060; J3490

== ENCOUNTER 2021-10-11 10:50 | Emergency (ER) | payer MEDICARE, BC ==
[2021-10-11] MEDS: LORazepam 0.5 MG Tab PO ONE (11:40)
[2021-10-11 12:01] VITALS: BP 127/76; PULSE 108
[2021-10-11 12:06] LABS: ANION GAP 12.2 mmol/L (5-15)
== END 2021-10-11 13:15 | disposition home or self-care (01) ==
LOC: KA.ED 10:50
DX: G89.29 Other chronic pain (principal); R10.84 Generalized abdominal pain; F41.9 Anxiety disorder, unspecified; I10 Essential (primary) hypertension; Z79.899 Other long term (current) drug therapy; Z79.82 Long term (current) use of aspirin; Z90.49 Acquired absence of other specified parts of digestive tract; Z90.710 Acquired absence of both cervix and uterus
CPT/HCPCS: 36415; 74018; 80048; 81001; 99284; A9270-GY

== ENCOUNTER 2021-10-28 08:02 | Day surgery (SDC) | payer MEDICARE, BC ==
[~2021-10-28 08:02] MED LIST changes: -Lidocaine 2% 5 ML SDV ONE; -Midazolam 1 MG/ML 2 ML SDV ONE; -Propofol 200 MG/20 ML SDV ONE; +Sodium Chloride 0.9% 10 ML Syringe FLUSH PRN; -Sodium Chloride 0.9% 5 ML Syringe FLUSH PRN; -fentaNYL 100 MCG/2 ML SDV ONE
[2021-10-28] MEDS: Lactated Ringers 1,000 ML IV SCH (08:35)
[2021-10-28] MEDS ORDERED: Propofol 200 MG/20 ML SDV ONE (09:04)
[2021-10-28] MEDS ORDERED: Midazolam 1 MG/ML 2 ML SDV ONE (09:04)
[2021-10-28] MEDS ORDERED: Glycopyrrolate 0.2 MG/ML SDV ONE (09:04)
[2021-10-28] MEDS ORDERED: Lidocaine 2% 5 ML SDV ONE (09:25)
[2021-10-28] MEDS ORDERED: Lactated Ringers 1,000 ML ONE (09:54)
[2021-10-28 15:54] VITALS: BP 145/80; PULSE 70
== END 2021-10-28 12:00 | disposition home or self-care (01) ==
LOC: KA.SDS 08:02
PROVIDERS: ATTEND Surgery
DX: K29.00 Acute gastritis without bleeding (principal); K29.50 Unspecified chronic gastritis without bleeding; K20.90 Esophagitis, unspecified without bleeding; K57.30 Diverticulosis of large intestine without perforation or abscess without bleeding; I10 Essential (primary) hypertension; D64.9 Anemia, unspecified; Z88.1 Allergy status to other antibiotic agents; Z79.899 Other long term (current) drug therapy; Z90.49 Acquired absence of other specified parts of digestive tract; Z98.890 Other specified postprocedural states
CPT/HCPCS: 00813; 88305; J2250; J2704; J3490; J7120

== ENCOUNTER 2022-01-21 11:05 | Emergency (ER) | payer MEDICARE, BC ==
[2022-01-21] MEDS ORDERED: Sodium Chloride 0.9% 10 ML Syringe FLUSH PRN (11:10)
[2022-01-21] MEDS: Ondansetron 4 MG Tab.DIS PO ONE (11:19)
[2022-01-21] MEDS: LORazepam 0.5 MG Tab PO ONE (11:19)
[2022-01-21 11:46] VITALS: BP 136/63; PULSE 99
[2022-01-21 11:46] LABS: ANION GAP 10.4 mmol/L (5-15); CHLORIDE,CL 102 mmol/L (98-107); ESTIMATED GFR 63 mL/min (>=60); SODIUM,NA 136 mmol/L (136-145)
[2022-01-21] MEDS: Sodium Chloride 0.9% 1,000 ML IV ONE (12:03)
[2022-01-21] MEDS: cefTRIAXone 1 GM Vial IVPUSH ONE (12:31)
== END 2022-01-21 13:30 | disposition home or self-care (01) ==
LOC: KA.ED 11:05
DX: N30.01 Acute cystitis with hematuria (principal); Z79.899 Other long term (current) drug therapy; Z88.1 Allergy status to other antibiotic agents
CPT/HCPCS: 71045; 80053; 81001; 82150; 83605; 83880; 84484; 85025; 87086; 87088; 87186; 93010; 96361; 96374; 99284; 99284-25; A9270-GY; J0696; J7030

== ENCOUNTER 2022-03-14 12:00 | Emergency (ER) | payer MEDICARE, BC ==
[2022-03-14] MEDS ORDERED: Sodium Chloride 0.9% 1,000 ML IV ONE (12:20)
[2022-03-14] MEDS ORDERED: Ondansetron 4 MG/2 ML SDV IVPUSH ONE (12:21)
[2022-03-14 12:43] VITALS: BP 124/60; PULSE 106
[2022-03-14 12:57] LABS: ANION GAP 14.9 mmol/L (5-15)
== END 2022-03-14 13:40 | disposition home or self-care (01) ==
LOC: KA.ED 12:00
DX: R11.0 Nausea (principal); F41.9 Anxiety disorder, unspecified; I10 Essential (primary) hypertension; Z88.8 Allergy status to other drugs, medicaments and biological substances; Z79.899 Other long term (current) drug therapy; Z90.49 Acquired absence of other specified parts of digestive tract; Z90.710 Acquired absence of both cervix and uterus
CPT/HCPCS: 36415; 80053; 81003; 85025; 96361; 96374; 99284; J2405; J7030

== ENCOUNTER 2022-03-18 09:25 | Emergency (ER) | payer MEDICARE, BC ==
[2022-03-18 10:01] LABS: ANION GAP 13.5 mmol/L (5-15); CHLORIDE,CL 104 mmol/L (98-107); SODIUM,NA 140 mmol/L (136-145)
[2022-03-18 10:37] LABS: ESTIMATED GFR 73 mL/min (>=60)
[2022-03-18] MEDS: Ketorolac 30 MG/ML SDV IM ONE (11:00)
[2022-03-19 08:03] VITALS: BP 155/65; PULSE 80
== END 2022-03-18 11:05 | disposition home or self-care (01) ==
LOC: KA.ED 09:25
DX: K57.33 Diverticulitis of large intestine without perforation or abscess with bleeding (principal); K57.31 Diverticulosis of large intestine without perforation or abscess with bleeding; K58.9 Irritable bowel syndrome, unspecified; I10 Essential (primary) hypertension; K21.9 Gastro-esophageal reflux disease without esophagitis; Z88.1 Allergy status to other antibiotic agents; Z79.899 Other long term (current) drug therapy
CPT/HCPCS: 36415; 80053; 85025; 96372; 99283; 99284; J1885

== ENCOUNTER 2022-04-04 16:00 | Emergency (ER) | payer MEDICARE, BC ==
[2022-04-04] MEDS ORDERED: LORazepam 0.5 MG Tab PO ONE (16:06)
[2022-04-04 16:17] VITALS: BP 135/79; PULSE 86
[2022-04-04] MEDS ORDERED: Ondansetron 4 MG Tab.DIS PO ONE (17:16)
== END 2022-04-04 17:30 | disposition home or self-care (01) ==
LOC: KA.ED 16:00
DX: R10.84 Generalized abdominal pain (principal); G89.29 Other chronic pain; R11.0 Nausea; I10 Essential (primary) hypertension; K21.9 Gastro-esophageal reflux disease without esophagitis; Z88.1 Allergy status to other antibiotic agents; Z79.899 Other long term (current) drug therapy
CPT/HCPCS: 36415; 80053; 82150; 83690; 85025; 99284; A9270

== ENCOUNTER 2022-05-05 07:00 | Day surgery (SDC) | payer MEDICARE, BC ==
[~2022-05-05 07:00] MED LIST changes: +Lactated Ringers 1,000 ML IV SCH
[2022-05-05] MEDS ORDERED: Glycopyrrolate 0.2 MG/ML SDV IVPUSH ONE (07:01)
[2022-05-05] MEDS ORDERED: Midazolam 1 MG/ML 2 ML SDV ONE (07:53)
[2022-05-05] MEDS ORDERED: Lidocaine 2% 5 ML SDV ONE (07:54)
[2022-05-05] MEDS ORDERED: Propofol 200 MG/20 ML SDV ONE (07:54)
[2022-05-05 13:58] VITALS: BP 130/80; PULSE 70
== END 2022-05-05 09:50 | disposition home or self-care (01) ==
LOC: KA.SDS 07:00
PROVIDERS: ATTEND Family Medicine
DX: K31.89 Other diseases of stomach and duodenum (principal); K29.70 Gastritis, unspecified, without bleeding; K21.9 Gastro-esophageal reflux disease without esophagitis; D64.9 Anemia, unspecified; Z79.899 Other long term (current) drug therapy; Z87.19 Personal history of other diseases of the digestive system
CPT/HCPCS: 00731; J2250; J2704; J3490; J7120

== ENCOUNTER 2022-06-18 16:24 | Emergency (ER) | payer MEDICARE, BC ==
[2022-06-18 16:33] VITALS: BP 128/69; PULSE 94
[2022-06-18] MEDS: Magnesium Citrate Solution 296 ML Bottle PO ONE ×2 (17:20→17:21)
== END 2022-06-18 17:24 | disposition home or self-care (01) ==
LOC: KA.ED 16:24
DX: K59.00 Constipation, unspecified (principal); I10 Essential (primary) hypertension; K21.9 Gastro-esophageal reflux disease without esophagitis; Z88.1 Allergy status to other antibiotic agents; Z79.899 Other long term (current) drug therapy
CPT/HCPCS: 74021; 99283; A9270-GY

== ENCOUNTER 2022-07-11 15:20 | Emergency (ER) | payer MEDICARE, BC ==
[2022-07-11 15:30] VITALS: BP 144/81; PULSE 93
[2022-07-11] MEDS ORDERED: Ketorolac 30 MG/ML SDV IVPUSH ONE (15:39)
[2022-07-11] MEDS ORDERED: Sodium Chloride 0.9% 1,000 ML IV ONE (15:39)
[2022-07-11 16:05] LABS: APPEARANCE,URINE CLEAR (CLEAR); BILIRUBIN,URINE NEGATIVE (NEGATIVE); COLOR,URINE YELLOW (YELLOW); GLUCOSE,URINE NEGATIVE (NEGATIVE); KETONES,URINE NEGATIVE (NEGATIVE); LEUKOCYTE ESTERASE,URINE NEGATIVE (NEGATIVE); NITRITE,URINE NEGATIVE (NEGATIVE); OCCULT BLOOD,URINE NEGATIVE (NEGATIVE); PROTEIN,URINE NEGATIVE (NEGATIVE); UROBILINOGEN,URINE 0.2 E.U./dL (0.2-1.0)
[2022-07-11 16:15] LABS: HEMATOCRIT 40.9 % (37.0-47.0); HEMOGLOBIN 13.1 g/dL (12.0-16.0); MEAN CORPUSCULAR HEMOGLOBIN 25.9 pg (27.0-31.0); MEAN CORPUSCULAR VOLUME 80.8 fL (82.0-92.0); MEAN PLATELET VOLUME 9.4 fL (7.4-10.4); PLATELET COUNT,PLT 210 10^3/uL (150-400); RED BLOOD CELL COUNT 5.06 10^6/uL (3.80-5.50); RED CELL DISTRIBUTION WIDTH 26.2 % (11.5-14.5); WHITE BLOOD CELL COUNT,WBC 8.02 10^3/uL (5.00-10.00)
[2022-07-11 16:16] LABS: ALBUMIN 3.56 g/dL (3.40-5.00); ANION GAP 14.2 mmol/L (5-15); BILIRUBIN TOTAL 0.2 mg/dL (0.2-1.0); CALCIUM 8.8 mg/dL (8.7-10.3); CARBON DIOXIDE,CO2 23.1 mmol/L (21.0-32.0); CREATININE 0.86 mg/dL (0.51-1.17); EST CRCL DRUG DOSING (CG) 42.8 mL/min; POTASSIUM,K 4.3 mmol/L (3.5-5.1); PROTEIN TOTAL,TP 6.7 g/dL (6.4-8.2)
[2022-07-11 16:25] LABS: BACTERIA,URINE RARE /HPF (NONE TO FEW); EPITHELIAL CELLS,URINE RARE /LPF; RBC,URINE 0-5 /HPF (0-5); WBC,URINE 0-5 /HPF (0-5)
[2022-07-11 16:28] LABS: SLIDE REVIEW YES
[2022-07-11 16:29] LABS: SEG NEUTROPHILS PERCENT MAN 62 % (50-70)
[2022-07-11 16:30] LABS: BAND PERCENT MAN 0 % (4-12); BASOPHILS PERCENT MAN 0 % (0-1); EOSINOPHILS PERCENT MAN 1 % (1-3); LYMPHOCYTES % ATYPICAL MANUAL 0; LYMPHOCYTES PERCENT MAN 32 % (20-40); MONOCYTES PERCENT MAN 5 % (2-8)
[2022-07-11 16:33] LABS: ANISOCYTOSIS 2+ MODERATE
== END 2022-07-11 17:15 | disposition home or self-care (01) ==
LOC: KA.ED 15:20
DX: R10.84 Generalized abdominal pain (principal); R14.0 Abdominal distension (gaseous); I10 Essential (primary) hypertension; K21.9 Gastro-esophageal reflux disease without esophagitis; Z79.899 Other long term (current) drug therapy
CPT/HCPCS: 74021; 80053; 81001; 83690; 85025; 96374; 99284; 99284-25; J1885; J7030

== ENCOUNTER 2022-07-16 17:40 | Emergency (ER) | payer MEDICARE, BC ==
[2022-07-16 18:03] LABS: BASOPHILS ABSOLUTE AUTO 0.03 10^3/uL (0.00-0.10); BASOPHILS PERCENT AUTO 0.3 % (0.0-1.0); EOSINOPHILS ABSOLUTE AUTO 0.09 10^3/uL (0.10-0.30); HEMATOCRIT 40.7 % (37.0-47.0); HEMOGLOBIN 13.2 g/dL (12.0-16.0); IMMATURE GRAN ABSOLUTE AUTO 0.01 10^3/uL (0.00-0.50); IMMATURE GRAN PERCENT AUTO 0.1 % (0.0-5.0); LYMPHOCYTES ABSOLUTE AUTO 3.59 10^3/uL (1.00-4.00); LYMPHOCYTES PERCENT AUTO 40.1 % (20.0-40.0); MEAN CORPUSCULAR HEMOGLOBIN 25.9 pg (27.0-31.0); MEAN CORPUSCULAR HGB CONC 32.4 g/dL (32.0-36.0); MEAN CORPUSCULAR VOLUME 79.8 fL (82.0-92.0); MEAN PLATELET VOLUME 9.5 fL (7.4-10.4); MONOCYTES ABSOLUTE AUTO 0.39 10^3/uL (0.10-0.80); MONOCYTES PERCENT AUTO 4.4 % (2.0-8.0); NEUTROPHILS ABSOLUTE AUTO 4.85 10^3/uL (2.50-7.00); NEUTROPHILS PERCENT AUTO 54.1 % (50.0-70.0); PLATELET COUNT,PLT 242 10^3/uL (150-400); RED CELL DISTRIBUTION WIDTH 25.7 % (11.5-14.5); WHITE BLOOD CELL COUNT,WBC 8.96 10^3/uL (5.00-10.00)
[2022-07-16 18:04] LABS: APPEARANCE,URINE CLEAR (CLEAR); BILIRUBIN,URINE NEGATIVE (NEGATIVE); COLOR,URINE YELLOW (YELLOW); GLUCOSE,URINE NEGATIVE (NEGATIVE); KETONES,URINE NEGATIVE (NEGATIVE); LEUKOCYTE ESTERASE,URINE TRACE (NEGATIVE); NITRITE,URINE NEGATIVE (NEGATIVE); OCCULT BLOOD,URINE NEGATIVE (NEGATIVE); PH,URINE 7.5 (5.0-9.0); PROTEIN,URINE NEGATIVE (NEGATIVE); UROBILINOGEN,URINE 0.2 E.U./dL (0.2-1.0)
[2022-07-16 18:11] LABS: BACTERIA,URINE RARE /HPF (NONE TO FEW); EPITHELIAL CELLS,URINE RARE /LPF; RBC,URINE 0-5 /HPF (0-5)
[2022-07-16 18:18] LABS: ALANINE AMINOTRANSFERASE,ALT 19 U/L (14-63); ALBUMIN 3.65 g/dL (3.40-5.00); ALKALINE PHOSPHATASE 73 U/L (46-116); ANION GAP 14.6 mmol/L (5-15); ASPARTATE AMNIOTRANSFERASE,AST 21 U/L (15-37); BILIRUBIN TOTAL 0.2 mg/dL (0.2-1.0); BLOOD UREA NITROGEN,BUN 15 mg/dL (7-18); CARBON DIOXIDE,CO2 23.6 mmol/L (21.0-32.0); CHLORIDE,CL 103 mmol/L (98-107); CREATININE 0.85 mg/dL (0.51-1.17); GLUCOSE RANDOM 91 mg/dL (70-140); POTASSIUM,K 4.2 mmol/L (3.5-5.1); PROTEIN TOTAL,TP 6.4 g/dL (6.4-8.2); SODIUM,NA 137 mmol/L (136-145)
[2022-07-16 18:20] LABS: ESTIMATED GFR 68 mL/min (>=60)
[2022-07-16 18:30] VITALS: BP 141/88; PULSE 93
[2022-07-16] MEDS: Sucralfate 1 GM Tab ONE (19:24)
[2022-07-16] MEDS: Sucralfate 1 GM Tab PO ONE (19:24)
== END 2022-07-16 19:35 | disposition home or self-care (01) ==
LOC: KA.ED 17:40
DX: K59.00 Constipation, unspecified (principal); I10 Essential (primary) hypertension; K21.9 Gastro-esophageal reflux disease without esophagitis; Z79.899 Other long term (current) drug therapy; Z90.49 Acquired absence of other specified parts of digestive tract; Z90.710 Acquired absence of both cervix and uterus; Z90.722 Acquired absence of ovaries, bilateral; Z88.1 Allergy status to other antibiotic agents
CPT/HCPCS: 74018; 80053; 81001; 85025; 87086; 99284; A9270

== ENCOUNTER 2022-07-22 16:00 | Inpatient (IN) | payer MEDICARE, BC ==
[2022-07-22] MEDS ORDERED: Acetaminophen 325 MG Tab PO PRN (16:26)
[2022-07-22] MEDS ORDERED: LORazepam 0.5 MG Tab PO PRN (16:29)
[2022-07-22] MEDS ORDERED: cefTRIAXone 1 GM Vial IVPUSH SCH (17:00)
[2022-07-22] MEDS: Sucralfate 1 GM Tab PO SCH (17:14)
[2022-07-22] MEDS: metroNIDAZOLE/Normal Saline 500 MG in Premix Bag 1 BAG IV SCH (17:19)
[2022-07-23] MEDS: metroNIDAZOLE/Normal Saline 500 MG in Premix Bag 1 BAG IV SCH ×3 (01:00→17:01)
[2022-07-23] MEDS: Omeprazole 20 MG Cap.CR PO SCH ×2 (06:06→06:34)
[2022-07-23] MEDS: Sucralfate 1 GM Tab PO SCH ×3 (06:34→16:39)
[2022-07-23 06:53] LABS: BASOPHILS ABSOLUTE AUTO 0.03 10^3/uL (0.00-0.10); BASOPHILS PERCENT AUTO 0.6 % (0.0-1.0); EOSINOPHILS ABSOLUTE AUTO 0.11 10^3/uL (0.10-0.30); EOSINOPHILS PERCENT AUTO 2.2 % (1.0-3.0); HEMATOCRIT 40.3 % (37.0-47.0); HEMOGLOBIN 12.7 g/dL (12.0-16.0); LYMPHOCYTES ABSOLUTE AUTO 2.31 10^3/uL (1.00-4.00); LYMPHOCYTES PERCENT AUTO 46.1 % (20.0-40.0); MEAN CORPUSCULAR HEMOGLOBIN 26.3 pg (27.0-31.0); MEAN CORPUSCULAR HGB CONC 31.5 g/dL (32.0-36.0); MEAN CORPUSCULAR VOLUME 83.6 fL (82.0-92.0); MEAN PLATELET VOLUME 9.3 fL (7.4-10.4); MONOCYTES ABSOLUTE AUTO 0.39 10^3/uL (0.10-0.80); MONOCYTES PERCENT AUTO 7.8 % (2.0-8.0); NEUTROPHILS ABSOLUTE AUTO 2.17 10^3/uL (2.50-7.00); NEUTROPHILS PERCENT AUTO 43.3 % (50.0-70.0); PLATELET COUNT,PLT 240 10^3/uL (150-400); RED BLOOD CELL COUNT 4.82 10^6/uL (3.80-5.50); RED CELL DISTRIBUTION WIDTH 25.3 % (11.5-14.5); WHITE BLOOD CELL COUNT,WBC 5.01 10^3/uL (5.00-10.00)
[2022-07-23 10:48] LABS: CALCIUM 8.5 mg/dL (8.7-10.3); CREATININE 0.77 mg/dL (0.51-1.17); EST CRCL DRUG DOSING (CG) 46.96 mL/min
[2022-07-23] MEDS: Sodium Chloride 0.9% 1,000 ML IV SCH (12:08)
[2022-07-23] MEDS ORDERED: Diatrizoate Meglumine/Diatrizoate Sodium 37% 30 ML Bottle PO ONE (12:30)
[2022-07-23] MEDS ORDERED: Iopamidol 755 Mg/ML 100 ML Bottle IV ONE (12:30)
[2022-07-23] MEDS ORDERED: Sodium Chloride 0.9% 50 ML IV SCH (12:30)
[2022-07-23] MEDS ORDERED: cefTRIAXone 2 GM Vial IVPUSH SCH (17:00)
[2022-07-24] MEDS: metroNIDAZOLE/Normal Saline 500 MG in Premix Bag 1 BAG IV SCH ×2 (01:56→09:26)
[2022-07-24] MEDS: Sodium Chloride 0.9% 1,000 ML IV SCH (01:56)
[2022-07-24 06:50] VITALS: BP 125/56; PULSE 61
[2022-07-24 07:22] LABS: BASOPHILS ABSOLUTE AUTO 0.02 10^3/uL (0.00-0.10); BASOPHILS PERCENT AUTO 0.4 % (0.0-1.0); EOSINOPHILS PERCENT AUTO 1.8 % (1.0-3.0); HEMATOCRIT 39.6 % (37.0-47.0); HEMOGLOBIN 12.5 g/dL (12.0-16.0); IMMATURE GRAN ABSOLUTE AUTO 0.01 10^3/uL (0.00-0.50); IMMATURE GRAN PERCENT AUTO 0.2 % (0.0-5.0); LYMPHOCYTES ABSOLUTE AUTO 1.56 10^3/uL (1.00-4.00); LYMPHOCYTES PERCENT AUTO 28.7 % (20.0-40.0); MEAN CORPUSCULAR HEMOGLOBIN 26.5 pg (27.0-31.0); MEAN CORPUSCULAR HGB CONC 31.6 g/dL (32.0-36.0); MEAN CORPUSCULAR VOLUME 83.9 fL (82.0-92.0); MEAN PLATELET VOLUME 8.9 fL (7.4-10.4); MONOCYTES ABSOLUTE AUTO 0.45 10^3/uL (0.10-0.80); MONOCYTES PERCENT AUTO 8.3 % (2.0-8.0); NEUTROPHILS ABSOLUTE AUTO 3.29 10^3/uL (2.50-7.00); NEUTROPHILS PERCENT AUTO 60.6 % (50.0-70.0); PLATELET COUNT,PLT 207 10^3/uL (150-400); RED BLOOD CELL COUNT 4.72 10^6/uL (3.80-5.50); RED CELL DISTRIBUTION WIDTH 24.6 % (11.5-14.5); WHITE BLOOD CELL COUNT,WBC 5.43 10^3/uL (5.00-10.00)
[2022-07-24] MEDS: Sucralfate 1 GM Tab PO SCH ×2 (07:50→12:42)
[2022-07-24] MEDS: Omeprazole 20 MG Cap.CR PO SCH (08:09)
[2022-07-24 08:30] LABS: ALANINE AMINOTRANSFERASE,ALT 18 U/L (14-63); ALBUMIN 2.97 g/dL (3.40-5.00); ALKALINE PHOSPHATASE 62 U/L (46-116); ANION GAP 8.9 mmol/L (5-15); ASPARTATE AMNIOTRANSFERASE,AST 18 U/L (15-37); BILIRUBIN TOTAL 0.3 mg/dL (0.2-1.0); BLOOD UREA NITROGEN,BUN 8 mg/dL (7-18); C-REACTIVE PROTEIN < 0.4 mg/dL (0.0-0.9); CALCIUM 8.1 mg/dL (8.7-10.3); CHLORIDE,CL 109 mmol/L (98-107); CREATININE 0.77 mg/dL (0.51-1.17); EST CRCL DRUG DOSING (CG) 46.96 mL/min; ESTIMATED GFR 76 mL/min (>=60); GLUCOSE RANDOM 97 mg/dL (70-140); POTASSIUM,K 3.9 mmol/L (3.5-5.1); PROTEIN TOTAL,TP 5.8 g/dL (6.4-8.2); SODIUM,NA 142 mmol/L (136-145)
== END 2022-07-24 11:15 | disposition home or self-care (01) | DRG 392 ==
LOC: KA.MS 16:00
PROVIDERS: ADMIT Family Medicine; ATTEND Family Medicine
DX: K57.32 Diverticulitis of large intestine without perforation or abscess without bleeding (principal); E86.0 Dehydration; K59.00 Constipation, unspecified; G89.29 Other chronic pain; D64.9 Anemia, unspecified; I10 Essential (primary) hypertension; E78.5 Hyperlipidemia, unspecified; E21.3 Hyperparathyroidism, unspecified; N32.81 Overactive bladder; K64.2 Third degree hemorrhoids; F41.1 Generalized anxiety disorder; K21.9 Gastro-esophageal reflux disease without esophagitis; M81.0 Age-related osteoporosis without current pathological fracture; Z98.890 Other specified postprocedural states; Z90.49 Acquired absence of other specified parts of digestive tract; Z87.891 Personal history of nicotine dependence
CPT/HCPCS: 36415; 74177; 80048; 80053; 85025; 86140; A9270-GY; J0696; J3490; J7030; Q9963; Q9967

== ENCOUNTER 2022-08-06 15:34 | Emergency (ER) | payer MEDICARE, BC ==
[2022-08-06 16:11] LABS: BASOPHILS ABSOLUTE AUTO 0.03 10^3/uL (0.00-0.10); BASOPHILS PERCENT AUTO 0.3 % (0.0-1.0); EOSINOPHILS ABSOLUTE AUTO 0.07 10^3/uL (0.10-0.30); EOSINOPHILS PERCENT AUTO 0.8 % (1.0-3.0); HEMATOCRIT 41.2 % (37.0-47.0); HEMOGLOBIN 13.4 g/dL (12.0-16.0); IMMATURE GRAN ABSOLUTE AUTO 0.02 10^3/uL (0.00-0.50); IMMATURE GRAN PERCENT AUTO 0.2 % (0.0-5.0); LYMPHOCYTES PERCENT AUTO 31.9 % (20.0-40.0); MEAN CORPUSCULAR HEMOGLOBIN 27.3 pg (27.0-31.0); MEAN CORPUSCULAR HGB CONC 32.5 g/dL (32.0-36.0); MEAN CORPUSCULAR VOLUME 83.9 fL (82.0-92.0); MEAN PLATELET VOLUME 8.9 fL (7.4-10.4); MONOCYTES ABSOLUTE AUTO 0.46 10^3/uL (0.10-0.80); MONOCYTES PERCENT AUTO 5.1 % (2.0-8.0); NEUTROPHILS PERCENT AUTO 61.7 % (50.0-70.0); PLATELET COUNT,PLT 256 10^3/uL (150-400); RED BLOOD CELL COUNT 4.91 10^6/uL (3.80-5.50); RED CELL DISTRIBUTION WIDTH 22.3 % (11.5-14.5); WHITE BLOOD CELL COUNT,WBC 9.08 10^3/uL (5.00-10.00)
[2022-08-06 16:13] LABS: APPEARANCE,URINE SLIGHTLY CLOUDY (CLEAR); BILIRUBIN,URINE NEGATIVE (NEGATIVE); COLOR,URINE YELLOW (YELLOW); GLUCOSE,URINE NEGATIVE (NEGATIVE); KETONES,URINE NEGATIVE (NEGATIVE); LEUKOCYTE ESTERASE,URINE SMALL (NEGATIVE); NITRITE,URINE NEGATIVE (NEGATIVE); OCCULT BLOOD,URINE TRACE-INTACT (NEGATIVE); PROTEIN,URINE NEGATIVE (NEGATIVE); UROBILINOGEN,URINE 0.2 E.U./dL (0.2-1.0)
[2022-08-06 16:20] LABS: WBC,URINE 40-50 /HPF (0-5)
[2022-08-06 16:21] LABS: BACTERIA,URINE FEW /HPF (NONE TO FEW); EPITHELIAL CELLS,URINE FEW /LPF
[2022-08-06 16:26] LABS: ALANINE AMINOTRANSFERASE,ALT 20 U/L (14-63); ALBUMIN 3.49 g/dL (3.40-5.00); ALKALINE PHOSPHATASE 72 U/L (46-116); ANION GAP 11.2 mmol/L (5-15); ASPARTATE AMNIOTRANSFERASE,AST 20 U/L (15-37); BILIRUBIN TOTAL 0.2 mg/dL (0.2-1.0); BLOOD UREA NITROGEN,BUN 16 mg/dL (7-18); CARBON DIOXIDE,CO2 25.8 mmol/L (21.0-32.0); CHLORIDE,CL 103 mmol/L (98-107); CREATININE 0.81 mg/dL (0.51-1.17); GLUCOSE RANDOM 91 mg/dL (70-140); PROTEIN TOTAL,TP 6.6 g/dL (6.4-8.2); SODIUM,NA 136 mmol/L (136-145)
[2022-08-06 16:27] LABS: ESTIMATED GFR 72 mL/min (>=60)
[2022-08-06 17:48] VITALS: BP 151/84; PULSE 82
== END 2022-08-06 17:40 | disposition home or self-care (01) ==
LOC: KA.ED 15:34
DX: R10.84 Generalized abdominal pain (principal); I10 Essential (primary) hypertension; R11.0 Nausea; K21.9 Gastro-esophageal reflux disease without esophagitis; F17.210 Nicotine dependence, cigarettes, uncomplicated; Z88.1 Allergy status to other antibiotic agents; Z79.899 Other long term (current) drug therapy
CPT/HCPCS: 36415; 74018; 80053; 81001; 85025; 87086; 99284

== ENCOUNTER 2022-09-10 08:00 | Emergency (ER) | payer MEDICARE, BC ==
[2022-09-10 09:22] LABS: BASOPHILS ABSOLUTE AUTO 0.03 10^3/uL (0.00-0.10); BASOPHILS PERCENT AUTO 0.4 % (0.0-1.0); EOSINOPHILS ABSOLUTE AUTO 0.03 10^3/uL (0.10-0.30); EOSINOPHILS PERCENT AUTO 0.4 % (1.0-3.0); HEMATOCRIT 45.9 % (37.0-47.0); HEMOGLOBIN 15.2 g/dL (12.0-16.0); IMMATURE GRAN ABSOLUTE AUTO 0.02 10^3/uL (0.00-0.50); IMMATURE GRAN PERCENT AUTO 0.3 % (0.0-5.0); LYMPHOCYTES ABSOLUTE AUTO 2.78 10^3/uL (1.00-4.00); LYMPHOCYTES PERCENT AUTO 37.4 % (20.0-40.0); MEAN CORPUSCULAR HEMOGLOBIN 28.4 pg (27.0-31.0); MEAN CORPUSCULAR HGB CONC 33.1 g/dL (32.0-36.0); MEAN CORPUSCULAR VOLUME 85.8 fL (82.0-92.0); MEAN PLATELET VOLUME 9.3 fL (7.4-10.4); MONOCYTES ABSOLUTE AUTO 0.39 10^3/uL (0.10-0.80); MONOCYTES PERCENT AUTO 5.2 % (2.0-8.0); NEUTROPHILS ABSOLUTE AUTO 4.18 10^3/uL (2.50-7.00); NEUTROPHILS PERCENT AUTO 56.3 % (50.0-70.0); PLATELET COUNT,PLT 293 10^3/uL (150-400); RED BLOOD CELL COUNT 5.35 10^6/uL (3.80-5.50); RED CELL DISTRIBUTION WIDTH 16.6 % (11.5-14.5); WHITE BLOOD CELL COUNT,WBC 7.43 10^3/uL (5.00-10.00)
[2022-09-10] MEDS: Ketorolac 30 MG/ML SDV IVPUSH ONE (09:24)
[2022-09-10] MEDS: Sodium Chloride 0.9% 1,000 ML IV ONE (09:25)
[2022-09-10] MEDS: Ondansetron 4 MG/2 ML SDV IVPUSH ONE (09:27)
[2022-09-10 09:40] LABS: ALANINE AMINOTRANSFERASE,ALT 18 U/L (14-63); ALBUMIN 3.78 g/dL (3.40-5.00); ALKALINE PHOSPHATASE 69 U/L (46-116); ANION GAP 15.6 mmol/L (5-15); ASPARTATE AMNIOTRANSFERASE,AST 19 U/L (15-37); BILIRUBIN TOTAL 0.3 mg/dL (0.2-1.0); BLOOD UREA NITROGEN,BUN 16 mg/dL (7-18); CALCIUM 9.2 mg/dL (8.7-10.3); CARBON DIOXIDE,CO2 24.5 mmol/L (21.0-32.0); CHLORIDE,CL 104 mmol/L (98-107); CREATININE 0.74 mg/dL (0.51-1.17); EST CRCL DRUG DOSING (CG) 48.87 mL/min; GLUCOSE RANDOM 99 mg/dL (70-140); LIPASE 118 U/L (73-393); POTASSIUM,K 4.1 mmol/L (3.5-5.1); SODIUM,NA 140 mmol/L (136-145)
[2022-09-10 09:41] LABS: ESTIMATED GFR 80 mL/min (>=60)
[2022-09-10 09:42] LABS: C-REACTIVE PROTEIN < 0.4 mg/dL (0.0-0.9)
[2022-09-10 10:40] LABS: APPEARANCE,URINE SLIGHTLY CLOUDY (CLEAR); BILIRUBIN,URINE NEGATIVE (NEGATIVE); COLOR,URINE DARK YELLOW (YELLOW); GLUCOSE,URINE NEGATIVE (NEGATIVE); KETONES,URINE NEGATIVE (NEGATIVE); LEUKOCYTE ESTERASE,URINE SMALL (NEGATIVE); NITRITE,URINE NEGATIVE (NEGATIVE); OCCULT BLOOD,URINE NEGATIVE (NEGATIVE); PROTEIN,URINE NEGATIVE (NEGATIVE); UROBILINOGEN,URINE 0.2 E.U./dL (0.2-1.0)
[2022-09-10 10:43] VITALS: BP 158/82; PULSE 90
[2022-09-10 10:59] LABS: EPITHELIAL CELLS,URINE FEW /LPF; MUCUS,URINE FEW /LPF (NEGATIVE); RBC,URINE 0-5 /HPF (0-5); WBC,URINE 20-30 /HPF (0-5)
[2022-09-10 11:00] LABS: BACTERIA,URINE RARE /HPF (NONE TO FEW)
== END 2022-09-10 11:25 | disposition home or self-care (01) ==
LOC: KA.ED 08:00
DX: R10.13 Epigastric pain (principal); R10.11 Right upper quadrant pain; I10 Essential (primary) hypertension; Z79.899 Other long term (current) drug therapy; Z88.8 Allergy status to other drugs, medicaments and biological substances
CPT/HCPCS: 80053; 81001; 83690; 85025; 86140; 87086; 87088; 96374; 96375; 99284; J1885; J2405; J7030

== ENCOUNTER 2022-09-14 09:53 | Emergency (ER) | payer MEDICARE, BC ==
[2022-09-14 10:24] VITALS: BP 166/83; PULSE 81
[2022-09-14 10:27] LABS: BASOPHILS ABSOLUTE AUTO 0.03 10^3/uL (0.00-0.10); BASOPHILS PERCENT AUTO 0.4 % (0.0-1.0); EOSINOPHILS ABSOLUTE AUTO 0.01 10^3/uL (0.10-0.30); EOSINOPHILS PERCENT AUTO 0.1 % (1.0-3.0); HEMATOCRIT 43.5 % (37.0-47.0); HEMOGLOBIN 14.2 g/dL (12.0-16.0); IMMATURE GRAN ABSOLUTE AUTO 0.02 10^3/uL (0.00-0.50); IMMATURE GRAN PERCENT AUTO 0.3 % (0.0-5.0); LYMPHOCYTES ABSOLUTE AUTO 1.49 10^3/uL (1.00-4.00); LYMPHOCYTES PERCENT AUTO 19.9 % (20.0-40.0); MEAN CORPUSCULAR HEMOGLOBIN 28.4 pg (27.0-31.0); MEAN CORPUSCULAR HGB CONC 32.6 g/dL (32.0-36.0); MEAN PLATELET VOLUME 8.9 fL (7.4-10.4); MONOCYTES ABSOLUTE AUTO 0.42 10^3/uL (0.10-0.80); MONOCYTES PERCENT AUTO 5.6 % (2.0-8.0); NEUTROPHILS ABSOLUTE AUTO 5.52 10^3/uL (2.50-7.00); NEUTROPHILS PERCENT AUTO 73.7 % (50.0-70.0); PLATELET COUNT,PLT 263 10^3/uL (150-400); RED CELL DISTRIBUTION WIDTH 15.8 % (11.5-14.5); WHITE BLOOD CELL COUNT,WBC 7.49 10^3/uL (5.00-10.00)
[2022-09-14] MEDS: LORazepam 2 MG/ML Syringe IM ONE (10:42)
[2022-09-14] MEDS: LORazepam 2 MG/ML SDV IM ONE (10:42)
[2022-09-14 10:45] LABS: ALBUMIN 3.68 g/dL (3.40-5.00); ANION GAP 14.6 mmol/L (5-15); BILIRUBIN TOTAL 0.3 mg/dL (0.2-1.0); CALCIUM 8.9 mg/dL (8.7-10.3); CREATININE 0.8 mg/dL (0.51-1.17); EST CRCL DRUG DOSING (CG) 45.2 mL/min; POTASSIUM,K 4.6 mmol/L (3.5-5.1); PROTEIN TOTAL,TP 6.7 g/dL (6.4-8.2)
== END 2022-09-14 11:25 | disposition home or self-care (01) ==
LOC: KA.ED 09:53
DX: R10.84 Generalized abdominal pain (principal); K21.9 Gastro-esophageal reflux disease without esophagitis; I10 Essential (primary) hypertension; Z88.8 Allergy status to other drugs, medicaments and biological substances; Z79.899 Other long term (current) drug therapy
CPT/HCPCS: 36415; 80053; 82150; 83690; 85025; 96372; 99284; J2060

== ENCOUNTER 2022-09-15 12:13 | Emergency (ER) | payer MEDICARE, BC ==
[2022-09-15] MEDS ORDERED: Sodium Chloride 0.9% 10 ML Syringe FLUSH PRN (12:23)
[2022-09-15 12:39] LABS: BASOPHILS ABSOLUTE AUTO 0.03 10^3/uL (0.00-0.10); BASOPHILS PERCENT AUTO 0.3 % (0.0-1.0); EOSINOPHILS ABSOLUTE AUTO 0.02 10^3/uL (0.10-0.30); EOSINOPHILS PERCENT AUTO 0.2 % (1.0-3.0); HEMATOCRIT 43.4 % (37.0-47.0); HEMOGLOBIN 14.3 g/dL (12.0-16.0); IMMATURE GRAN ABSOLUTE AUTO 0.02 10^3/uL (0.00-0.50); IMMATURE GRAN PERCENT AUTO 0.2 % (0.0-5.0); LYMPHOCYTES ABSOLUTE AUTO 2.79 10^3/uL (1.00-4.00); LYMPHOCYTES PERCENT AUTO 29.3 % (20.0-40.0); MEAN CORPUSCULAR HEMOGLOBIN 28.4 pg (27.0-31.0); MEAN CORPUSCULAR HGB CONC 32.9 g/dL (32.0-36.0); MEAN CORPUSCULAR VOLUME 86.3 fL (82.0-92.0); MEAN PLATELET VOLUME 9.3 fL (7.4-10.4); MONOCYTES ABSOLUTE AUTO 0.46 10^3/uL (0.10-0.80); MONOCYTES PERCENT AUTO 4.8 % (2.0-8.0); NEUTROPHILS ABSOLUTE AUTO 6.19 10^3/uL (2.50-7.00); NEUTROPHILS PERCENT AUTO 65.2 % (50.0-70.0); PLATELET COUNT,PLT 264 10^3/uL (150-400); RED BLOOD CELL COUNT 5.03 10^6/uL (3.80-5.50); WHITE BLOOD CELL COUNT,WBC 9.51 10^3/uL (5.00-10.00)
[2022-09-15] MEDS: Sodium Chloride 0.9% 1,000 ML IV ONE (12:47)
[2022-09-15] MEDS: Ondansetron 4 MG/2 ML SDV IVPUSH ONE (12:49)
[2022-09-15 12:56] LABS: ALANINE AMINOTRANSFERASE,ALT 19 U/L (14-63); ALBUMIN 3.66 g/dL (3.40-5.00); ALKALINE PHOSPHATASE 69 U/L (46-116); AMYLASE 51 U/L (25-125); ANION GAP 16.2 mmol/L (5-15); BILIRUBIN TOTAL 0.4 mg/dL (0.2-1.0); BLOOD UREA NITROGEN,BUN 14 mg/dL (7-18); CALCIUM 9.1 mg/dL (8.7-10.3); CARBON DIOXIDE,CO2 23.2 mmol/L (21.0-32.0); CHLORIDE,CL 102 mmol/L (98-107); CREATININE 0.76 mg/dL (0.51-1.17); GLUCOSE RANDOM 89 mg/dL (70-140); PROTEIN TOTAL,TP 6.9 g/dL (6.4-8.2); SODIUM,NA 137 mmol/L (136-145)
[2022-09-15 12:57] LABS: ESTIMATED GFR 77 mL/min (>=60)
[2022-09-15 12:58] LABS: C-REACTIVE PROTEIN < 0.4 mg/dL (0.0-0.9)
[2022-09-15 12:59] LABS: ASPARTATE AMNIOTRANSFERASE,AST 27 U/L (15-37); POTASSIUM,K 4.4 mmol/L (3.5-5.1)
[2022-09-15 13:01] LABS: LACTIC ACID 1.7 mmol/L (0.4-2.0)
[2022-09-15 13:17] LABS: APPEARANCE,URINE CLEAR (CLEAR); BILIRUBIN,URINE NEGATIVE (NEGATIVE); COLOR,URINE LIGHT YELLOW (YELLOW); GLUCOSE,URINE NEGATIVE (NEGATIVE); KETONES,URINE NEGATIVE (NEGATIVE); LEUKOCYTE ESTERASE,URINE NEGATIVE (NEGATIVE); NITRITE,URINE NEGATIVE (NEGATIVE); OCCULT BLOOD,URINE NEGATIVE (NEGATIVE); PH,URINE 7.5 (5.0-9.0); PROTEIN,URINE NEGATIVE (NEGATIVE); UROBILINOGEN,URINE 0.2 E.U./dL (0.2-1.0)
[2022-09-15] MEDS: Sodium Chloride 0.9% 50 ML IV SCH (13:46)
[2022-09-15] MEDS: Iopamidol 755 Mg/ML 100 ML Bottle IV ONE (13:46)
[2022-09-15] MEDS: Diatrizoate Meglumine/Diatrizoate Sodium 37% 30 ML Bottle PO ONE (13:46)
[2022-09-15 14:11] VITALS: BP 161/89; PULSE 100
== END 2022-09-15 14:59 | disposition home or self-care (01) ==
LOC: KA.ED 12:13
DX: R10.9 Unspecified abdominal pain (principal); G89.29 Other chronic pain; I10 Essential (primary) hypertension; K21.9 Gastro-esophageal reflux disease without esophagitis; Z88.1 Allergy status to other antibiotic agents; Z79.899 Other long term (current) drug therapy
CPT/HCPCS: 36415; 74177; 80053; 81003; 82150; 83605; 85025; 86140; 87040; 93005; 93010; 96361; 96374; 99284; 99284-25; J2405; J3490; J7030; Q9963; Q9967

== ENCOUNTER 2022-09-25 10:29 | Emergency (ER) | payer MEDICARE, BC ==
[2022-09-25 12:40] VITALS: BP 151/79; PULSE 94
== END 2022-09-25 12:07 | disposition left against medical advice (07) ==
LOC: KA.ED 10:29
DX: Z53.21 Procedure and treatment not carried out due to patient leaving prior to being seen by health care provider (principal)

== ENCOUNTER 2022-10-06 10:43 | Emergency (ER) | payer MEDICARE, BC ==
[2022-10-06 10:59] VITALS: BP 158/89; PULSE 93
[2022-10-06 11:09] LABS: APPEARANCE,URINE CLEAR (CLEAR); BILIRUBIN,URINE NEGATIVE (NEGATIVE); COLOR,URINE YELLOW (YELLOW); GLUCOSE,URINE NEGATIVE (NEGATIVE); KETONES,URINE NEGATIVE (NEGATIVE); LEUKOCYTE ESTERASE,URINE NEGATIVE (NEGATIVE); NITRITE,URINE NEGATIVE (NEGATIVE); OCCULT BLOOD,URINE NEGATIVE (NEGATIVE); PH,URINE 6.5 (5.0-9.0); PROTEIN,URINE NEGATIVE (NEGATIVE); UROBILINOGEN,URINE 0.2 E.U./dL (0.2-1.0)
[2022-10-06] MEDS ORDERED: LORazepam 2 MG/ML SDV IM ONE ×2 (11:23)
== END 2022-10-06 11:55 | disposition home or self-care (01) ==
LOC: KA.ED 10:43
DX: R10.84 Generalized abdominal pain (principal); G89.29 Other chronic pain; F41.9 Anxiety disorder, unspecified; I10 Essential (primary) hypertension; K21.9 Gastro-esophageal reflux disease without esophagitis; Z88.1 Allergy status to other antibiotic agents; Z79.899 Other long term (current) drug therapy
CPT/HCPCS: 74018; 81003; 96372; 99284; J2060

== ENCOUNTER 2022-10-10 12:58 | Emergency (ER) | payer MEDICARE, BC ==
[2022-10-10 15:29] VITALS: BP 170/79; PULSE 70
== END 2022-10-10 15:10 | disposition home or self-care (01) ==
LOC: KA.ED 12:58
DX: K59.00 Constipation, unspecified (principal); R14.0 Abdominal distension (gaseous); K21.9 Gastro-esophageal reflux disease without esophagitis; I10 Essential (primary) hypertension; Z79.899 Other long term (current) drug therapy; Z88.8 Allergy status to other drugs, medicaments and biological substances
CPT/HCPCS: 74021; 99283; 99284

== ENCOUNTER 2022-10-13 16:02 | Emergency (ER) | payer MEDICARE, BC ==
[2022-10-13] MEDS: LORazepam 2 MG/ML SDV IM ONE (16:53)
[2022-10-13 19:36] VITALS: BP 156/68; PULSE 84
== END 2022-10-13 17:15 | disposition home or self-care (01) ==
LOC: KA.ED 16:02
DX: R10.84 Generalized abdominal pain (principal); F41.9 Anxiety disorder, unspecified; I10 Essential (primary) hypertension; K21.9 Gastro-esophageal reflux disease without esophagitis; Z79.899 Other long term (current) drug therapy; Z88.1 Allergy status to other antibiotic agents
CPT/HCPCS: 96372; 99283; 99284; J2060

== ENCOUNTER 2023-01-26 07:03 | Day surgery (SDC) | payer MEDICARE, BC ==
[2023-01-26] MEDS ORDERED: Midazolam 1 MG/ML 2 ML SDV ONE (07:54)
[2023-01-26] MEDS ORDERED: Glycopyrrolate 0.2 MG/ML SDV ONE (07:55)
[2023-01-26] MEDS ORDERED: Propofol 200 MG/20 ML SDV ONE (07:55)
[2023-01-26] MEDS ORDERED: Lidocaine 2% 100 MG/5 ML Syringe ONE (07:55)
[2023-01-26 10:19] VITALS: BP 158/78; PULSE 78
== END 2023-01-26 10:18 | disposition home or self-care (01) ==
LOC: KA.SDS 07:03
PROVIDERS: ATTEND Family Medicine
DX: K27.9 Peptic ulcer, site unspecified, unspecified as acute or chronic, without hemorrhage or perforation (principal); I10 Essential (primary) hypertension; K21.9 Gastro-esophageal reflux disease without esophagitis; K59.04 Chronic idiopathic constipation; M81.0 Age-related osteoporosis without current pathological fracture; F41.9 Anxiety disorder, unspecified
CPT/HCPCS: J2250; J2704; J3490; J7120

== ENCOUNTER 2023-09-16 14:31 | Emergency (ER) | payer MEDICARE, BC, OTHER ==
[2023-09-16 14:51] LABS: BASOPHILS ABSOLUTE AUTO 0.03 10^3/uL (0.00-0.10); BASOPHILS PERCENT AUTO 0.3 % (0.0-1.0); EOSINOPHILS ABSOLUTE AUTO 0.03 10^3/uL (0.10-0.30); EOSINOPHILS PERCENT AUTO 0.3 % (1.0-3.0); HEMATOCRIT 42.7 % (37.0-47.0); HEMOGLOBIN 14.6 g/dL (12.0-16.0); IMMATURE GRAN ABSOLUTE AUTO 0.02 10^3/uL (0.00-0.50); IMMATURE GRAN PERCENT AUTO 0.2 % (0.0-5.0); LYMPHOCYTES ABSOLUTE AUTO 3.15 10^3/uL (1.00-4.00); LYMPHOCYTES PERCENT AUTO 31.4 % (20.0-40.0); MEAN CORPUSCULAR HEMOGLOBIN 30.5 pg (27.0-31.0); MEAN CORPUSCULAR HGB CONC 34.2 g/dL (32.0-36.0); MEAN CORPUSCULAR VOLUME 89.1 fL (82.0-92.0); MONOCYTES ABSOLUTE AUTO 0.47 10^3/uL (0.10-0.80); MONOCYTES PERCENT AUTO 4.7 % (2.0-8.0); NEUTROPHILS ABSOLUTE AUTO 6.32 10^3/uL (2.50-7.00); NEUTROPHILS PERCENT AUTO 63.1 % (50.0-70.0); PLATELET COUNT,PLT 275 10^3/uL (150-400); RED BLOOD CELL COUNT 4.79 10^6/uL (3.80-5.50); RED CELL DISTRIBUTION WIDTH 13.6 % (11.5-14.5); WHITE BLOOD CELL COUNT,WBC 10.02 10^3/uL (5.00-10.00)
[2023-09-16] MEDS: Diphtheria,Pertussis(Acell),Tetanus Vaccine 0.5 ML Syringe IM ONE (15:00)
[2023-09-16 15:09] LABS: ALBUMIN 3.68 g/dL (3.40-5.00); ANION GAP 18.2 mmol/L (5-15); BILIRUBIN TOTAL 0.3 mg/dL (0.2-1.0); CARBON DIOXIDE,CO2 22.4 mmol/L (21.0-32.0); CREATININE 0.85 mg/dL (0.51-1.17); EST CRCL DRUG DOSING (CG) 40.03 mL/min; POTASSIUM,K 3.6 mmol/L (3.5-5.1); PROTEIN TOTAL,TP 6.9 g/dL (6.4-8.2)
[2023-09-16 16:41] LABS: BILIRUBIN,URINE NEGATIVE (NEGATIVE); COLOR,URINE YELLOW (YELLOW); GLUCOSE,URINE NEGATIVE (NEGATIVE); KETONES,URINE NEGATIVE (NEGATIVE); LEUKOCYTE ESTERASE,URINE TRACE (NEGATIVE); NITRITE,URINE NEGATIVE (NEGATIVE); OCCULT BLOOD,URINE NEGATIVE (NEGATIVE); PROTEIN,URINE NEGATIVE (NEGATIVE); UROBILINOGEN,URINE 0.2 E.U./dL (0.2-1.0)
[2023-09-16 16:46] LABS: APPEARANCE,URINE SLIGHTLY CLOUDY (CLEAR)
[2023-09-16 16:50] LABS: BACTERIA,URINE RARE /HPF (NONE TO FEW); EPITHELIAL CELLS,URINE RARE /LPF; RBC,URINE 0-5 /HPF (0-5)
[2023-09-16 17:02] VITALS: BP 145/80; PULSE 67
== END 2023-09-16 17:13 | disposition home or self-care (01) ==
LOC: KA.ED 14:31
DX: S40.012A Contusion of left shoulder, initial encounter (principal); S60.012A Contusion of left thumb without damage to nail, initial encounter; S50.11XA Contusion of right forearm, initial encounter; S60.221A Contusion of right hand, initial encounter; K21.9 Gastro-esophageal reflux disease without esophagitis; I10 Essential (primary) hypertension; Z79.899 Other long term (current) drug therapy; Z88.8 Allergy status to other drugs, medicaments and biological substances; V49.40XA Driver injured in collision with unspecified motor vehicles in traffic accident, initial encounter
CPT/HCPCS: 36415; 71045; 73090-RT; 73110-LT; 73130-RT; 80053; 81001; 85025; 90471; 90715; 99284-25; Q3014

== ENCOUNTER 2025-01-22 15:00 | Emergency (ER) | payer MEDICARE, BC ==
[2025-01-22 15:27] VITALS: BP 172/81; PULSE 99
[2025-01-22] MEDS: Bacitracin/Neomycin/Polymyxin B Oint 0.9 GM U/D Packet TOP ONE (15:50)
== END 2025-01-22 16:22 | disposition home or self-care (01) ==
LOC: KA.ED 15:03
DX: S61.211A Laceration without foreign body of left index finger without damage to nail, initial encounter (principal); I10 Essential (primary) hypertension; K21.9 Gastro-esophageal reflux disease without esophagitis; Z90.49 Acquired absence of other specified parts of digestive tract; Z90.710 Acquired absence of both cervix and uterus; Z88.8 Allergy status to other drugs, medicaments and biological substances; Z79.899 Other long term (current) drug therapy; W26.0XXA Contact with knife, initial encounter; Y99.0 Civilian activity done for income or pay
CPT/HCPCS: 12001; 99282; 99283; J2003